=== PATIENT | female | born 1985 | race African-American/Black ===

== ENCOUNTER 2024-07-26 02:48 | Observation (INO) | payer MEDICAID, SELFPAY ==
[2024-07-26] VITALS (8 sets, daily range): BP systolic 110–189; BP diastolic 70–109; PULSE 84–101; RESP 14–18; TEMP 36.3–37.1; O2SAT 98–100; BMI 22.1
--- NOTE | 2024-07-26 | ECG_ITS ---
Test Reason : lethargic, weakness Blood Pressure : */* mmHG Vent. Rate : 91 BPM Atrial Rate : 91 BPM P-R Int : 106 ms QRS Dur : 78 ms QT Int : 400 ms P-R-T Axes : 62 61 61 degrees QTcB Int : 492 ms Sinus rhythm with short NC Prolonged QT Abnormal ECG No previous ECGs available Referred By: Generic ED Physician Electronically Signed By: BRIT DOVE MD
[2024-07-26 03:38] LABS: Basophils Percent Auto 0.7 % (0-2); Eosinophils Absolute Auto 0.1 X10*3/uL (0.0-0.4); Hematocrit 28.2 % (37.0-47.0); Hemoglobin 9.4 g/dl (12.0-16.0); Imm Gran Abs Auto 0.02 X10*3/uL (0.00-0.03); Imm Gran Pct Auto 0.3 % (0.0-0.4); Lymphocytes Absolute Auto 1.7 X10*3/uL (1.2-4.9); Lymphocytes Percent Auto 28.9 % (20-40); MANUAL DIFF FLAG NO; Mean Corpuscular HGB Conc 33.3 g/dl (31.0-35.0); Mean Corpuscular Hemoglobin 27.3 pg (27.0-33.0); Mean Platelet Volume 9.9 fL (9.4-12.3); Monocytes Absolute Auto 0.4 X10*3/uL (0.1-1.2); Monocytes Percent Auto 6.2 % (2-11); Neutrophils Absolute Auto 3.8 x10*3/uL (2.0-8.3); Neutrophils Percent Auto 62.9 % (45-73); Platelet Count 219 X10*3/uL (160-400); Red Blood Count 3.44 X10*6/uL (4.20-5.50); Red Cell Distribution Width 14.2 % (11.0-16.0)
[2024-07-26 03:39] LABS: Glucose, Whole Blood 86 mg/dL (60-115)
[2024-07-26] MEDS: Dextrose 5 % and 0.9 % NaCl 1,000 ML 125 ML IVCONT (03:48)
--- NOTE | 2024-07-26 03:53 | ED.GENADULT ---
HPI - General Adult General Chief complaint: General Medical Stated complaint: HYPOGLYCEMIC Time Seen by Provider: 07/26/24 03:37 Source: EMS Mode of arrival: EMS Limitations: other History of Present Illness ED Provider: Dr. Mi Thomas HPI narrative: Patient comes to the emergency room via ambulance from home. Earlier today, patient was having dinner with her boyfriend and family. Patient herself to go up to the bathroom, they did not hear back from her, they went to check on her. Boyfriend found the patient unresponsive in the bathroom. EMS was called, glucose was in the low 50s. EMS gave her glucagon and D10. Glucose increased to the 200s. However, shortly after here in the ED, glucose dropped again to the 80s. Patient very weak, patient answering questions saying yes or no by moving her finger Related Data Allergies Allergy/AdvReac Type Severity Reaction Status Date / Time ondansetron [From Zofran] AdvReac Hives Verified 07/26/24 03:31 Review of Systems Review of Systems: Yes Unobtainable due to mental condition [facility] Past Medical History Medical History (Updated 07/26/24 @ 05:17 by Mi Thomas MD) Type 1 diabetes mellitus Social History Social History Smoked in Last 30 Days: No Use of substances other than those prescribed or required for medical reasons: Yes Substance Use Type: Marijuana Substance Use Frequency: Socially Do you have a plan to hurt others: No Plan Physical Exam ED Vital Signs: Vital Signs - 24 hr 07/26/24 03:17 07/26/24 04:45 Temperature 98.7 F 98.7 F Pulse Rate 92 84 Respiratory Rate 16 16 Blood Pressure 189/109 H 110/70 Pulse Oximetry 98 98 Oxygen Delivery Method Room Air Room Air BMI result Body Mass Index 22.1 Const Other: Appearance: Somnolent but arousable, answering questions by moving her index finger yes or no Eyes: Pupils equal, round and reactive to light. ENT: Pharynx normal. Neck: Normal inspection. Neck supple. No lymph nodes noted. No crepitus CVS: Normal heart rate and rhythm. Pulses normal. Normal S1 and S2 Respiratory: No respiratory distress. Breath sounds normal. No Wheezing. No rales Abdomen: Soft and nontender. No rigidity. No distention. Skin: Skin warm and dry. Normal skin color. Normal skin turgor. Extremities: No lower extremity edema. No Lacerations. No Rash Neuro: Patient not participating cranial nerve assessment Psych: calm Course Course Course Narrative: EMS gave the patient D10 IV fluids and D50 push Here in the emergency room, patient received another dose of D50 push and is now on D5 normal saline. Patient removed her insulin pump Medications Administered Generic Name Dose Route Start Last Admin Trade Name Freq PRN Reason Stop Dose Admin Dextrose 1,000 mls @ 100 mls/hr 07/26/24 04:30 07/26/24 04:34 D10 IVCONT 100 mls/hr .Q10H NIKI Administration Discontinued Medications Generic Name Dose Route Start Last Admin Trade Name Freq PRN Reason Stop Dose Admin Dextrose/Sodium Chloride 1,000 mls @ 125 mls/hr 07/26/24 03:45 07/26/24 04:35 D5ns IVCONT 125 mls/hr .Q8H NIKI Infusion Medical Decision Making Medical Decision Making [facility] Narrative: My interpretation of labs: Patient's white blood cell count 6.0. Hemoglobin noted to be 9.4, hematocrit 28.2, platelets 219. We do not have any previous medical records or labs to compare No significant chemistry abnormalities other than the hypoglycemia. Initially, patient's glucose wa in the 50s per EMS, given D10 Here in the ED patient received D50, D5 continues glucose. However, patient's glucose initially improved but subsequently dropped to the 70s. Patient on D10. Patient awake, alert but somnolent, responds appropriately I discussed the patient with Dr. Segovia, patient being admitted Lab Data 07/26/24 03:31 07/26/24 03:31 Labs: Lab Results 07/26/24 07/26/24 07/26/24 Range/Units 03:31 03:35 04:14 WBC 6.0 (4.8-10.8) X10*3/uL RBC 3.44 L (4.20-5.50) X10*6/uL Hgb 9.4 L (12.0-16.0) g/dl Hct 28.2 L (37.0-47.0) % MCV 82.0 (80.0-98.0) fL MCH 27.3 (27.0-33.0) pg MCHC 33.3 (31.0-35.0) g/dl RDW 14.2 (11.0-16.0) % Plt Count 219 (160-400) X10*3/uL MPV 9.9 (9.4-12.3) fL Immature Gran % (Auto) 0.3 (0.0-0.4) % Neut % (Auto) 62.9 (45-73) % Lymph % (Auto) 28.9 (20-40) % [place] % (Auto) 6.2 (2-11) % Eos % (Auto) 1.0 (0-4) % Baso % (Auto) 0.7 (0-2) % Lymph # (Auto) 1.7 (1.2-4.9) X10*3/uL [place] # (Auto) 0.4 (0.1-1.2) X10*3/uL Eos # (Auto) 0.1 (0.0-0.4) X10*3/uL Baso # (Auto) 0.0 (0.0-0.2) X10*3/uL Abs Immat Gran (auto) 0.02 (0.00-0.03) X10*3/uL Absolute Neuts (auto) 3.8 (2.0-8.3) x10*3/uL Absolute Nucleated RBC 0.000 (0.0-0.012) X10*3/uL Nucleated RBC % (auto) 0.0 (0.0-0.2) /100WBC Sodium 143 (135-145) mmol/L Potassium 3.8 (3.3-5.1) mmol/L Chloride 110 H (96-108) mmol/L Carbon Dioxide 26 (22-29) mmol/L Anion Gap 11 L (12-20) BUN 23 H (9-16) mg/dL Creatinine 0.99 (0.5-1.4) mg/dL Estim Creat Clear Calc 63.1 Estimated GFR > 60 POC Glucose 86 62 (60-115) mg/dL Random Glucose 60 (60-115) mg/dL Calcium 9.4 (8.4-10.2) mg/dL Total Bilirubin 0.2 (0.0-1.0) mg/dL AST 49 H (5-31) U/L ALT 50 H (0-31) U/L Alkaline Phosphatase 84 (39-117) U/L Total Protein 7.4 (6.5-8.0) g/dL Albumin 3.7 (3.5-5.0) g/dL Ethyl Alcohol < 10 mg/dL 07/26/24 Range/Units 04:44 WBC (4.8-10.8) X10*3/uL RBC (4.20-5.50) X10*6/uL Hgb (12.0-16.0) g/dl Hct (37.0-47.0) % MCV (80.0-98.0) fL MCH (27.0-33.0) pg MCHC (31.0-35.0) g/dl RDW (11.0-16.0) % Plt Count (160-400) X10*3/uL MPV (9.4-12.3) fL Immature Gran % (Auto) (0.0-0.4) % Neut % (Auto) (45-73) % Lymph % (Auto) (20-40) % [place] % (Auto) (2-11) % Eos % (Auto) (0-4) % Baso % (Auto) (0-2) % Lymph # (Auto) (1.2-4.9) X10*3/uL [place] # (Auto) (0.1-1.2) X10*3/uL Eos # (Auto) (0.0-0.4) X10*3/uL Baso # (Auto) (0.0-0.2) X10*3/uL Abs Immat Gran (auto) (0.00-0.03) X10*3/uL Absolute Neuts (auto) (2.0-8.3) x10*3/uL Absolute Nucleated RBC (0.0-0.012) X10*3/uL Nucleated RBC % (auto) (0.0-0.2) /100WBC Sodium (135-145) mmol/L Potassium (3.3-5.1) mmol/L Chloride (96-108) mmol/L Carbon Dioxide (22-29) mmol/L Anion Gap (12-20) BUN (9-16) mg/dL Creatinine (0.5-1.4) mg/dL Estim Creat Clear Calc Estimated GFR POC Glucose 75 (60-115) mg/dL Random Glucose (60-115) mg/dL Calcium (8.4-10.2) mg/dL Total Bilirubin (0.0-1.0) mg/dL AST (5-31) U/L ALT (0-31) U/L Alkaline Phosphatase (39-117) U/L Total Protein (6.5-8.0) g/dL Albumin (3.5-5.0) g/dL Ethyl Alcohol mg/dL Critical Care Time Critical Care Time Critical Care Time: Yes Total Critical Care Time: 60 Attestation: I have personally provided critical care time. Time includes review of lab data, radiology results, discussion with consultants, and monitoring for potential decompensation. Intervention performed as documented. Discharge Plan Discharge Clinical Impression: Hypoglycemia Patient Disposition: Admitted As Inpatient
[2024-07-26 04:00] LABS: Alanine Aminotransferase 50 U/L (0-31); Albumin Level 3.7 g/dL (3.5-5.0); Alkaline Phosphatase 84 U/L (39-117); Anion Gap 11 (12-20); Aspartate Amino Transferase 49 U/L (5-31); Bilirubin Total 0.2 mg/dL (0.0-1.0); Blood Urea Nitrogen 23 mg/dL (9-16); Calcium 9.4 mg/dL (8.4-10.2); Carbon Dioxide 26 mmol/L (22-29); Chloride 110 mmol/L (96-108); Creatinine Clr Calc Pharmacy 63.1; Estimated Glomerular Filt Rate > 60; Ethanol < 10 mg/dL; Glucose Random 60 mg/dL (60-115); Potassium 3.8 mmol/L (3.3-5.1); Sodium 143 mmol/L (135-145); Total Protein 7.4 g/dL (6.5-8.0)
[2024-07-26 04:17] LABS: Glucose, Whole Blood 62 mg/dL (60-115)
--- NOTE | 2024-07-26 04:23 | PC.NURSE ---
Confirmed with , order for D10 continuous IV infusion 100ml/hr. Pharmacy assisting to put the order in.
[2024-07-26] MEDS: Dextrose 10 % 1,000 ML 100 ML IVCONT (04:34)
--- NOTE | 2024-07-26 04:36 | PC.NURSE ---
Addendum entered by Radha Shine 07/26/24 04:38: poc was 62 Original Note: poc [address] meraz new orders place for d10. pt is a&o at this time and answer question appropriately
--- NOTE | 2024-07-26 04:46 | PC.NURSE ---
pt is a&o, reports feeling much better, warm blanket given.
[2024-07-26 04:47] LABS: Glucose, Whole Blood 75 mg/dL (60-115)
--- OUTSIDE RECORDS SUMMARY | 2024-07-26 05:44 | XMS_ITS | Encounter Summary ---
Author Organization [employer]: [facility] Address [facility] [phone] [place] [address] Care Team Providers Care Power Press Supervisor Name Role Phone Celsa Preston MD Primary Care Provider [phone] Encounter Details Date Type Department Care Team (Latest Contact Info) Description 07/05/2024 Travel Social History Tobacco Use Types Packs/Day Years Used Date Smoking Tobacco: Never Cigarettes Qu it: 10/29/2009 Smokeless Tobacco: Never Comments:only smoked passive ly for a couple months Alcohol Use Standard Drinks/Week Comments No 0 (1 standard drink = 0.6 oz pur e alcohol) rarely Home Health - Social Isolation Answer D ate Recorded Frequency of experiencing loneliness or isolatio n Never 07/03/2023 Home Health - Transportation Answer Omar e Recorded Lack of Transportation (Medical) No 07/03/2023 Lack of Transportation (Non-Medical) No 07/03/2023 Patient Unable or Declines to Respond No 07/03/2023 [facility] Utilities Answer Date Recorded In the past 12 months has th [employer] electric, gas, oil, or water company threatened to shut off services in your home? No 06/26/2024 Social Connection and Isolat ion Panel [NHANES] Answer Date Recorded In a typical week, how many times do you talk on the phone with family, friends, or neighbors? More than three times a week 06/26/2024 How often do you get togethe r with friends or relatives? Twice a week 06/26/2024 How often do you attend chur ch or gnosticist services? Never 06/26/2024 Do you belong to any clubs o r organizations such as buddhism groups, unions, fraternal or athletic groups, or school groups? No 06/26/2024 How often do you attend meet ings of the clubs or organizations you belong to? Never 06/26/2024 Are you , , di vorced, , never , or living with a partner? Living with partner 06/26/2024 AUDIT-C Answer Date Recorded Q1: How often do you have a drink containing alcohol? Never 07/05/2024 Q2: How many drinks containi ng alcohol do you have on a typical day when you are drinking? Patient does not drink Q3: How often do you have si x or more drinks on one occasion? Never 07/05/2024 Overall Financial Resource Strain (CARDIA) Answe r Date Recorded How hard is it for you to pa y for the very basics like food, housing, medical care, and heating? Hard 04/24/2023 Hunger Vital Sign Answer Date Recorded Within the past 12 months, y ou worried that your food would run out before you got the money to buy more. Never true 06/26/20 Within the past 12 months, t he food you bought just didn't last and you didn't have money to get more. Never true 06/26/2024 PRAPARE - Transportation Answer Date Re corded In the past 12 months, has l ack of transportation kept you from medical appointments or from getting medications? No 06/01 In the past 12 months, has l ack of transportation kept you from meetings, work, or from getting things needed for daily living? No 06/26/2024 Housing Stability Vital Sign Answer Omar e Recorded In the last 12 months, was t here a time when you were not able to pay the mortgage or rent on time? Patient declined 03/05/20 In the last 12 months, how many places have you lived? 1 03/05/2024 In the last 12 months, was t here a time when you did not have a steady place to sleep or slept in a [facility] (including now)? Patient declined 03/05/2024 Housing Stability Vital Sign Answer Omar e Recorded In the last 12 months, was t here a time when you were not able to pay the mortgage or rent on time? No 06/26/2024 In the past 12 months, how m any times have you moved where you were living? 0 06/26/2024 At any time in the past 12 m [facility], were you homeless or living in a [facility] (including now)? No 06/26/2024 Sex and Gender Information Value Date Recorded Sex Assigned at Female 12/25/2023 2:20 PM EDT Gender Identity Female 12/25/2023 2:20 PM EDT Sexual Orientation Bisexual 12/25/2023 2: 20 PM EDT documented as of this encounter Functional Status Functional Status Response Date of Assess ment Is this person deaf or does he/she have serious difficulty hearing? No 06/26/2024 Is this person blind or does he/she have serious difficulty seeing even when wearing glasses? No Does this person have seriou s difficulty walking or climbing stairs? No 06/26/2024 Does this person have seriou s difficulty dressing or bathing? No 06/26/2024 Because of a physical, menta l, or emotional condition, does this person have difficulty doing errands alone, such as visiting the doctor's office or shopping? No 06/01 Cognitive Status Response Date of Assessm ent Because of a physical, menta l, or emotional condition, does this person have difficulty concentrating, remembering, or making decisions? No 06/26/2024 documented as of this encounter Plan of Treatment Not on file documented as of this encounter Visit Diagnoses Not on filedocumented in this encounter Additional Health Concerns Infection Onset Date Last Indicated Resolved Time Influenza Rule-Out 07/05/2024 07/05/2024 8:09 AM EST RSV Rule-Out 07/05/2024 07/05/2024 07/05/2024 8:09 AM EST COVID-19 Rule-Out 07/05/2024 07/05/2024 07/05/2024 8:09 AM EST documented as of this encounter Care Teams Power Press Supervisor Relationship Specialty Start Date End Date Celsa Preston MD [address] [place] [address] PCP - General Internal Medicine 12/10/17 documented as of this encounter
--- OUTSIDE RECORDS SUMMARY | 2024-07-26 05:44 | XMS_ITS | Encounter Summary ---
Author Organization [facility]: [facility] Address [facility] [phone] [place] [address] Care Team Providers Care Food Counter Worker Name Role Phone Celsa Preston MD Primary Care Provider [phone] Reason for Visit * Reason Comments Hypoglycemia Encounter Details Date Type Department Care Team (Late st Contact Info) Description 06/25/2024 12:45 PM EST - 06/26/2024 5:59 PM EST Emergency [place] [address] [place] [address] Jimbo Liang MD [address] C/[place] [address] Chivo Curtis MD [address] [place] [id number] Hypoglycemia (Primary Dx) Discharge Disposition: Routine Discharge Home Social History Tobacco Use Types Packs/Day Years [...] Unable or Declines to Respond No 07/03/[address] [facility] Utilities Answer Date Recorded In the past 12 months has th e electric, gas, oil, or water company threatened [...] often do you attend chur ch or amish services? Never 06/26/2024 Do you belong to any clubs o r organizations such as yazdanism groups, unions, fraternal or athletic groups, or school groups? No 06/26/2024 How often do you attend meet ings of the clubs or organizations you belong to? Never 06/26/2024 Are you , , di vorced, , never , or living with a partner? Living with partner 06/26/2024 AUDIT-C Answer Date Recorded Q1: How often do you have a drink containing alcohol? Never 06/25/2024 Q2: How many drinks containi ng alcohol do you have on a typical day when you are drinking? Patient does not drink Q3: How often do you have si x or more drinks on one occasion? Never 06/25/2024 Overall Financial Resource Strain (CARDIA) Answe r Date Recorded How hard is it for you to pa y for the very basics like food, housing, medical care, and heating? Hard 04/24/2023 Hunger Vital Sign Answer Date Recorded Within the past 12 months, y ou worried that your food would run out before you got the money to buy more. Never true 06/26/20 24 Within the past 12 months, t he [...] or rent on time? Patient declined 03/05/20 24 In the last 12 months, how many places have you lived? 1 03/05/2024 In the last 12 months, was t here a time when you did not have a steady place to sleep or slept in a long term (including now)? Patient declined 03/05/2024 Housing Stability [...] any time in the past 12 m [facility], were you homeless or living in a long term (including now)? No 06/26/2024 Sex and Gender Information Value Date Recorded Sex Assigned at Female 12/25/2023 2:20 PM EDT Gender Identity Female 12/25/2023 2:20 PM EDT Sexual Orientation Bisexual 12/25/2023 2: 20 PM EDT documented as of this encounter Last Filed Vital Signs Vital Sign Reading Time Taken Comments Blood Pressure 113/99 06/26/2024 3:46 PM EST Pulse 103 06/26/2024 3:46 PM EST Temperature 36.9 ??C (98.5 ??F) 06/26/2024 3:46 PM ES T Respiratory Rate 16 06/26/2024 3:46 PM EST Oxygen Saturation 98% 06/26/2024 3:46 PM EST Inhaled Oxygen Concentration - - Weight 58.1 kg (128 lb) 06/25/2024 10:17 PM EST Height 160 cm (5' 2.99 ) 06/25/2024 10:17 PM EST Body Mass Index 22.68 06/25/2024 10:17 PM EST documented in this encounter Functional Status Functional Status Response [...] No 06/26/2024 documented as of this encounter Discharge Summaries * MIGUELITO Patel - 06/26/2024 4:40 PM EST DISCHARGE SUMMARY NAME: Lynne Brown AGE: [age] year old : 1985 [facility]09 [place]: [id number] ADMITTING PROVIDER: Chivo Curtis MD ADMIT DATE: 06/25/2024 PCP: CELSA PRESTON DISCHARGE DATE: 06/26/2024 DISCHARGING PROVIDER: MIGUELITO Patel Code Status: Full Code FINAL DIAGNOSIS: 1. Hypoglycemic episode 2. Right upper lobe pneumonia seen on chest x-ray 3. Abnormal urinalysis 4. Electrolyte derangements SECONDARY DIAGNOSIS: Principal Problem: Hypoglycemia (POA: Yes) Resolved Problems: * No resolved hospital problems. * BRIEF HOSPITAL COURSE: This is a 39-year-old female with past medical history of T1DM with prior hospitalizations for DKA,HTN, admitted on 06/25/2024 following an unresponsive episode found to have significant hypoglycemia with glucose under 20. The patient received 250 cc of D10 x 2 with improvement of her glucose. Please see the full H&P by Dr. Curtis for further details. Per the patient, the night prior to her hypoglycemic event, was Lilian Katia and she did not eat anything all day followed by a very large meal and soda around 11 PM that evening. She gave herself insulin via her pump as if she ate a normal meal and then went to bed. The cement finishing supervisor was consulted and evaluated her insulin pump. It appears that her glucose didspike overnight and the pump algorithm gave her multiple boluses to bring her glucose down while she was sleeping. Around 9 AM, she awoke to her Dexcom monitor alarming that her glucose was low. Unfortunately, with the patient's specific pump, there is no way to customize algorithm and it was felt it was unsafe to replace the patient's insulin pump at this time. The patient just recently started this insulin pump in January, and would like to resume her prior insulin regimen as follows: Lantus 16 units nightly, NovoLog FlexPen 5 units with meals and correction factor of 50, target 150 at home.The patient states she has plenty of insulin, pen needles, and Dexcom G7 sensors at home. The patient denies SI with no intention to cause harm to herself. Please see the cement finishing supervisor's full note for details. Additionally, chest x-ray on admission with a right upper lobe consolidation suggestive of pneumonia. The patient has remained afebrile without leukocytosis or any respiratory symptoms. The patient started on oral Augmentin which will be continued for total of 5 days of antibiotic therapy. Legionella and strep pneumonia antigens were negative. Respiratory bio fire panel was negative. Her UA was negative for nitrates, 500 leukocytes, over 182 WBC, 105 RBC, and 27 squamous epithelial cells. The patient denies acute urinary symptoms and states she is on her menses which explains the RBCs in her urine. Will continue on Augmentin for right upper lobe pneumonia which should cover urinary tract inf ection as well. I sent a staff message to the hospitalist RN who will follow her urine culture and notify the patient if her antibiotic needs to be adjusted. Lastly, the patient had electrolyte abnormalities with mild hypokalemia, low normal magnesium level, and hypophosphatemia. Her electrolytes were repleted orally and intravenously. She will continue on Neutra-Phos x 3 doses on discharge. I recommend close follow-up with repeat labs on Saturday, 06/29 for her PCP's review. Her blood pressure was elevated at times. She is continued on her home antihypertensives. On discharge, I recommend monitoring blood pressure and heart rate twice daily. I instructed the patient to call her theatrical rigger as soon as possible for further recommendations for her diabetes management. Follow-up with endocrinology within 1 to 2 weeks and PCP within 7 to 10 days. Disposition: Routine Discharge Home CONSULTS: Consults Ordered during this Encounter Procedures Inpatient Diabetes Education Consult PROCEDURES:No orders of the defined types were placed in this encounter. RADIOLOGY TESTS: CXR (Portable) Final Result Right upper lobe consolidation concerning for pneumonia. Electronically signed by: Kolby Tobar MD 06/25/2024 7:39 PM PROPOSED MANAGEMENT PLAN: Risk for readmission within 30 days: Low Pending results: Unresulted Labs . . . Urine Culture [[id number]] Collected: 06/26/24 1409 Updated: 06/26/24 1413 Specimen Source: Urine, Clean Catch Recommended Testing: Refer to Hospital Course DISCHARGE MEDICATIONS: Medication List STOP taking these medications insulin infusion pump Macy TAKE these medications Dose Ordering Provider Morning Afternoon Evening Bedtime acetaminophen 500 MG Tabs Commonly known as: TYLENOL Instructions: Take 1 Tablet (500 mg total) by mouth every 6 hours as needed for Pain, Fever or Discomfort. Dose: 500 mg Signed by: MIGUELITO Castro amitriptyline 25 MG Tabs Commonly known as: ELAVIL Instructions: Take 25 mg by mouth at bedtime. Dose: 25 mg amoxicillin-clavulanate 875-125 MG Tabs Commonly known as: AUGMENTIN Instructions: Take 1 Tablet by mouth every 12 hours for 8 doses. Take with food Dose: 1 Tablet Signed by: MIGUELITO Castro aspirin 81 MG Chew Instructions: Chew 1 Tablet (81 mg total) daily. Dose: 81 mg Signed by: Kali Rueda atorvastatin 40 MG Tabs Commonly known as: LIPITOR Instructions: Take 1 Tablet (40 mg total) by mouth at bedtime. Dose: 40 mg Signed by: Kali Rueda ferrous sulfate 325 (65 Fe) MG Tabs Commonly known as: IRON Instructions: Take 1 Tablet (325 mg total) by mouth every 48 hours. What changed: when to take this Dose: 325 mg Signed by: MIGUELITO Castro LANTUS SOLOSTAR 100 UNIT/ML Sopn Commonly known as: insulin glargine Instructions: Inject 16 Units subcutaneously at bedtime. Dose: 16 Units Signed by: MIGUELITO Castro lisinopril 20 MG Tabs Commonly known as: PRINIVIL Instructions: Take 1 Tablet (20 mg total) by mouth once daily every morning. Dose: 20 mg Signed by: Kali Rueda metoprolol succinate 100 MG Tb24 Commonly known as: TOPROL XL Instructions: Take 1 Tablet (100 mg total) by mouth daily. Do not crush or chew What changed: when to take this Dose: 100 mg Signed by: Wisam DAVISLOG FLEXPEN 100 UNIT/ML Sopn Commonly known as: Insulin Aspart Instructions: Inject 5 Units subcutaneously as directed. Novolog Flexpens 5 units with meals and correction factor 50, target 150 as your were on previously What changed: Another medication with the same name was removed. Continue taking this medication, and follow the directions you see here. Dose: 5 Units Signed by: MIGUELITO Castro potassium & sodium phosphates 280-160-250 MG Pack Commonly known as: NEUTRA-PHOS Instructions: Take 1 Packet by mouth 4 times a day for 3 doses. Dose: 1 Packet Signed by: MIGUELITO Castro RELION LANCETS MICRO-THIN 33G Misc Instructions: 1 Lancet 4 times a day before meals and at bedtime. Dose: 1 Lancet Signed by: Nigel Lin DO RELION PREMIER CLASSIC Macy Instructions: 1 Kit once for 1 dose. Dose: 1 Kit Signed by: Nigel Lin DO Where to Get Your Medications These medications were sent to [id number] [place], [place] - [address] [id number] Hours: 24-hours amoxicillin-clavulanate 875-125 MG Tabs potassium & sodium phosphates 280-160-250 MG Pack Information about where to get these medications is not yet available Ask your nurse or doctor about these medications acetaminophen 500 MG Tabs ferrous sulfate 325 (65 Fe) MG Tabs High-risk Medication Changes: Refer to Hospital Course ELEMENT SETTER Medication Changes: Refer to Hospital Course FOLLOW UP: CELSA PRESTON MD. Schedule an appointment as soon as possible for a visit in 1 day(s). Specialties: Internal Medicine, Hospitalist Why: Follow-up with your PCP within 7 days. Contact information [address] [facility] [id number] RAFA RUSSELL MD. Schedule an appointment as soon as possible for a visit in 1 day(s). Specialties: Endocrinology, Internal Medicine Why: Please call your theatrical rigger for further insulin recommendations. You should follow-up with your theatrical rigger within 1 to 2 weeks. Contact information [facility] [id number] CONDITION ON DISCHARGE: General Appearance: Well appearing, resting in bed, alert, conversant, NAD ENT Exam: Anicteric sclera, MMM Head: Atraumatic, normocephalic Chest Exam: Speaking in full sentences comfortably on room air. Lungs CTABL without wheezes, rales,rhonchi. Good air movement bilaterally. Normal rate, regular rhythm, S1 and S2, no murmurs Abdominal Exam: Abdomen nondistended, + bowel sounds, soft, nontender, no palpable masses or organomegaly, no suprapubic or CVA tenderness Exam of Extremities: No pedal edema or calf tenderness/erythema bilaterally Neurological Exam: Alert, answers questions appropriately, speech is clear and not dysarthric, no facial asymmetry, PERRL, EOMI, moves all extremities well Skin Exam: Warm, dry. No rashes noted to exposed skin Psych Exam: Calm, cooperative ALLERGIES: Review of patient's allergies indicates: Ondansetron Hcl Rash, Itching IMMUNIZATIONS: Immunization History Administered Date(s) Administered DTP [birth year], 09/01/1987 MMR 09/01/1987 Polio - OPV 1985, 1985, 09/01/1987, 02/28/1989 Rhogam 09/14/2016 Tb Intradermal 05/05/2001 Tdap 07/15/2015 DISCHARGE ORDERS: Discharge Orders Procedures 1800 calorie, consistent carbohydrate diet Activity as tolerated, No restrictions Call MD for: temperature > 100.4 Call MD for: persistent nausea and vomiting Call MD for: severe, uncontrolled pain Call MD for: difficulty breathing, headache or visual disturbances Call MD for: persistent dizziness or light-headedness Future Lab/Radiology Orders Future Labs/Procedures 06/29/2024 Complete Blood Count with Auto Differential 06/29/2024 Comprehensive Metabolic Panel 06/29/2024 Magnesium 06/29/2024 Phosphorus TOTAL TIME SPENT ORCHESTRATING DISCHARGE: Time spent preparing discharge: 60 minutes, Including including face to face , review of patient record, and coordination of care. Rhianna Sharp PAC Associated attestation - Jimbo Liang MD - 06/26/2024 5:14 PM EST Patient seen and examined with associate provider. Agree with history, exam and assessment/plan. I discussed the patient with the ACP and performed a substantive portion of the visit. I personally made/approved the management plan, including all aspects of the history, physical exam and medical decision making, taking responsibility for the management. 39-year-old female with past medical history of type 1 diabetes mellitus currently utilizing an Islet pump coming with hypoglycemia. We discussed the case extensively with her prover todaywho looked at the actual pump administrations of insulin. Seems that with the pump was administering too much insulin overnight. We discussed these findings with the patient and we elected to pursue injectable insulin at this time and allow her to follow-up with endocrine to further discuss the useof this pump given this worrisome outcome. documented in this encounter Discharge Instructions * Discharge Instructions* Rhianna Sharp, PAC - 06/26/2024 4:37 PM EST You presented to the hospital with hypoglycemia felt to be secondary to possible insulin pump failure versus over correcting for your sugars. You are seen by the cement finishing supervisor. On discharge, resume your previous Lantus 16 units nightly with NovoLog 5 units before meals with correction factor of50, target 150. I recommend you call your theatrical rigger as soon as possible for further recommendations on your diabetic regimen and follow-up with your theatrical rigger within 1 to 2 weeks. Additionally, you are found to have right upper lobe pneumonia on your chest x-ray. You were started on Augmentin which should be continued on discharge. Your UA was abnormal and your urine culture is pending. We will contact you if your antibiotic needs to be adjusted once your culture has resulted. Lastly, you had electrolyte abnormalities which were replaced. Repeat labs with CBC, CMP, magnesium level, and phosphorus on Saturday for your PCPs review. Blood pressures were elevated at times. Monitor your blood pressure and heart rate twice daily, recording results for your PCPs review. I recommend theOmron arm blood pressure cuff which can be purchased [id number]. Follow-up with your theatrical rigger within 1 to 2 weeks new PCP within 7 to 10 days. * Attachments The following attachments cannot be sent through Care Everywhere. * Hypoglycemia in Diabetes: General Info (Grenadian) * Diabetes: Blood Sugar Emergencies (Grenadian) * Antibiotics: General Info (Grenadian) * Pneumonia (Grenadian) documented in this encounter Medications at Time of Discharge Medication Sig Dispensed Refills Start Date End Date amitriptyline (ELAVIL) 25 MG Oral Tab Take 25 mg by mouth at bedtime. aspirin 81 MG Oral Chew Tab Chew 1 Tablet (81 mg total) daily. 30 Tablet 1 01/26/2024 08/08/2024 atorvastatin (LIPITOR) 40 MG Oral Tab Take 1 Tablet (40 mg total) by mouth at bedtime. 30 Tablet 1 01/25/2024 08/08/2024 ferrous sulfate (IRON) 325 (65 Fe) MG Oral Tab Take 1 Tablet (325 mg total) by mouth every 48 hours. 06/26/2024 Insulin Aspart (NOVOLOG FLEXPEN) 100 UNIT/ML Subcutaneous Solution Pen-injector Inject 5 Units subcutaneously as directed. Novolog Flexpens 5 units with meals and correction factor 50, target 150 as your were on previously 06/26/2024 insulin glargine (LANTUS SOLOSTAR) 100 UNIT/ML Subcutaneous Solution Pen-injector Inject 16 Units subcutaneously at bedtime. 06/26/2024 lisinopril (PRINIVIL) 20 MG Oral Tab Take 1 Tablet (20 mg total) by mouth once daily every morning. 30 Tablet 1 01/26/2024 08/08/2024 metoprolol succinate (TOPROL XL) 100 MG Oral TABLET SR 24 HR Take 1 Tablet (100 mg total) by mouth daily. Do not crush or chew 03/07/2024 08/08/2024 acetaminophen (TYLENOL) 500 MG Oral Tab Take 1 Tablet (500 mg total) by mouth every 6 hours as needed for Pain, Fever or Discomfort. 06/26/2024 07/03/2024 amoxicillin-clavulana te (AUGMENTIN) 875-125 MG Oral Tab Take 1 Tablet by mouth every 12 hours for 8 doses. Take with food 8 Tablet 06/26/2024 06/30/2024 potassium & sodium phosphates (NEUTRA-PHOS) 280-160-250 MG Oral Pack Take 1 Packet by mouth 4 times a day for 3 doses. 3 Packet 06/26/2024 06/27/2024 documented as of this encounter Progress Notes * Bart Prieto MD - 06/25/2024 5:39 PM EST Contacted by Dr. Sapp, hospitalist concern of frequency for finger sticks on D5NS with previous hypoglycemia, d/w charge, floors should be able to manage. * He Sapp MD - 06/25/2024 2:58 PM EST 39 year old female with PMH of gastroparesis, type 1 diabetes presenting with chief complaint of hypoglycemia x 1 day. History obtained from patient at bedside. She says that over the last several days to a week she has had some loose brown diarrhea. In this context she has been nauseous with some decreased p.o. intake. She says that she noted earlier today she began to feel fatigued and generally unwell. At some point her CGM alerted her that her blood glucose was low. She states that she called EMS and the next thing she remembers is being surrounded by shot polisher and inspector. Per EMS, patient had a blood glucose reading of low or less than 20. Her insulin pump was paused and she received 250 cc of D10 with improvement in her blood glucose to 148. She had had a 1 episode of emesis this was treated with Reglan and on ED arrival confirmed that herinsulin pump was paused. At that time her blood glucose was rechecked and was 53. The remaining 250cc of D10 were infused. denies fevers, chills, chest pain, shortness of breath, abdominal pain, dysuria, urinary frequency or urgency REVIEW OF SYSTEMS Negative unless otherwise specified in HPI PAST MEDICAL HISTORY Past Medical History: Diagnosis Date CYST 01/2010 on wrist Depression Diabetes mellitus Gastroparesis Other and unspecified anemias Sickle-cell disease, unspecified (CMS/HCC) TRAIT only Unspecified mental or behavioral problem MEDICATIONS No current facility-administered medications for this encounter. Current Outpatient Medications: amitriptyline (ELAVIL) 25 MG Oral Tab, Take 25 mg by mouth at bedtime., Disp: , Rfl: aspirin 81 MG Oral Chew Tab, Chew 1 Tablet (81 mg total) daily., Disp: 30 Tablet, Rfl: 1 atorvastatin (LIPITOR) 40 MG Oral Tab, Take 1 Tablet (40 mg total) by mouth at bedtime., Disp: 30 Tablet, Rfl: 1 Blood Glucose Monitoring Suppl (RELION PREMIER CLASSIC) Does not apply Device, 1 Kit once for 1 dose., Disp: 1 Each, Rfl: 0 ferrous sulfate (IRON) 325 (65 Fe) MG Oral Tab, Take 325 mg by mouth daily., Disp: , Rfl: insulin infusion pump, Inject 0-10 Units subcutaneously daily. Document 24-hour insulin total (Total Daily Dose) Type of insulin being used in the pump: Novolog Insulin Basal rate ? units/hour Correction factor ? units of insulin to decrease blood glucose by ? mg/dL Insulin / Carb ratio ?/? units/grams, Disp: , Rfl: lisinopril (PRINIVIL) 20 MG Oral Tab, Take 1 Tablet (20 mg total) by mouth once daily every morning., Disp: 30 Tablet, Rfl: 1 metoprolol succinate (TOPROL XL) 100 MG Oral TABLET SR 24 HR, Take 1 Tablet (100 mg total) by mouthdaily. Do not crush or chew, Disp: , Rfl: RELION LANCETS MICRO-THIN 33G Does not apply Misc, 1 Lancet 4 times a day before meals and at bedtime., Disp: 100 Each, Rfl: 0 PAST SURGICAL HISTORY Past Surgical History: Procedure Laterality Date DELIVERY ONLY, WITH CARE EXCIS PRIMARY GANGLION WRIST [phone] Dr Sood ORAL SURGERY PROCEDURE MTE ALLERGIES Review of patient's allergies indicates: Ondansetron Hcl Rash PAST FAMILY HISTORY Family History Problem Relation Age of Onset Hypertension Father SOCIAL HISTORY Social History Socioeconomic History Marital status: Significant other Spouse name: Karson Number of children: 4 Tobacco Use Smoking status: Never Smokeless tobacco: Never Tobacco comments: only smoked passively for a couple months Substance and Sexual Activity Alcohol use: No Comment: rarely Drug use: Yes Types: Marijuana Sexual activity: Yes Partners: Male Social Determinants of Health Financial Resource Strain: High Risk (04/24/2023) Overall Financial Resource Strain (CARDIA) Difficulty of Paying Living Expenses: Hard Food Insecurity: Patient Declined (03/05/2024) Hunger Vital Sign Worried About Running Out of Food in the Last Year: Patient declined Ran Out of Food in the Last Year: Patient declined Transportation Needs: Patient Declined (03/05/2024) PRAPARE - Transportation Lack of Transportation (Medical): Patient declined Lack of Transportation (Non-Medical): Patient declined Social Connections: Unknown (03/05/2024) Social Connection and Isolation Panel [NHANES] Marital Status: Never Intimate Partner Violence: Unknown (03/05/2024) Humiliation, Afraid, Rape, and Kick questionnaire Fear of Current or Ex-Partner: Patient declined Emotionally Abused: No Physically Abused: No Sexually Abused: No Housing Stability: Patient Declined (03/05/2024) Housing Stability Vital Sign Unable to Pay for Housing in the Last Year: Patient declined Number of Places Lived in the Last Year: 1 Unstable Housing in the Last Year: Patient declined PERTINENT PE FINDINGS Temp: [97.4 ??F (36.3 ??C)] 97.4 ??F (36.3 ??C) HR: [85-94] 86 RR: [10-29] 25 BP: (159-174)/(112-118) 166/118 SpO2: [99 %-100 %] 99 % Constitutional: No apparent distress. Mentating appropriately HEENT: Mucous membranes moist Cardiovascular: S1/S2, no m/r/g Pulmonary: Lungs clear to auscultation bilaterally. No distress GI: soft, nontender, nondistended Skin: warm, well perfused MSK: generally normal range of motion, no obvious deformities Neurologic: Awake, alert, oriented x3 Moving all extremities equally and spontaneously Psychiatric: normal affect and range of emotion [facility] [id number] - EKG per my interpretation: Normal sinus rhythm with poor R wave progression 39 year old female with PMH as above presenting with recurrent hypoglycemia. Patient is well appearing with stable vital signs. #Hypoglycemia This patient presents with multiple episodes of hypoglycemia despite having her insulin pump pausedand then subsequently completely removed. She did require want to a total of 3 rounds of D10 then transitioning to D5 maintenance IV fluids to maintain her blood glucose. The etiology of her hypoglycemia is unclear as she is able to tolerate p.o. here. There certainly may be a component of some decreased p.o. intake with her recent diarrhea. Plan for single set of blood cultures, urine studies, and from an infectious workup with chest x-ray. If patient is able to have diarrhea here, will plan for stool studies. Will also plan for basic labs and viral testing as well. Updates on clinical course: Labs overall notable for stable anemia with hemoglobin 9.7, similar to baseline 8-10 in the past. Viral testing negative. UA significantly contaminated with multiple epithelial cells and thus otherwise prohibits interpretation. During ED stay patient became increasingly hyperglycemic into the 200s. At this point D5 NS was stopped and a liter of fluids was administered. Despite this her glucose peaked in the low 300s. Sliding scale insulin was ordered and patient is being maintained on every 1 hour fingersticks until her sugars normalized. Nonetheless, given her recurrent episodes of hypoglycemia I do believe she would benefit from admission for close monitoring Chest x-ray notable for right upper lobe pneumonia. Initiated on ceftriaxone and azithromycin I discussed with hospitalist team who are amenable for admission. Given potential concern for the frequency of her fingersticks, I discussed with fisherman helper Dr. Prieto who deferred admission to hospital team. I did make oncoming ED attending aware of this patient as hospitalist team as hospitalist team has not yet fully assumed care for this patient. Final diagnosis: Hypoglycemia documented in this encounter H&P Notes * Chivo Curtis MD - 06/25/2024 8:33 PM EST HISTORY & PHYSICAL NAME: Lynne Brown : 1985 AGE: [age] year old MANSOOR: [id number] ROOM: [place] [id number] ADMIT DATE: 06/25/2024 ADMITTING PROVIDER: Chivo Curtis MD Primary care physician: CELSA PRESTON CHIEF COMPLAINT: Hypoglycemia HISTORY OF PRESENT ILLNESS: This is a 39 year old female with Pmhx of T1DM, HTN who presents with episode of hypoglycemia at home where she was unresponsive causing her children to call EMS. When they arrived her BG reading was low <20. Currently, pt denies dizziness, n/v/d, abd pain. Pt states she did not eat or drink anything today and was sleeping most of the morning, while her insulin pump was on. The next thing she remembered was EMS in her bedroom. She states she was eating and drinking well yday. She states she had an episode of hypoglycemia in the past, but none this low. Insulin pump is currently turned off. REVIEW OF SYSTEMS: Negative except As above All other systems reviewed and are negative. PAST MEDICAL HISTORY: Diagnosis Date CYST 01/2010 on wrist Depression Diabetes mellitus Gastroparesis Other and unspecified anemias Sickle-cell disease, unspecified ([facility]) TRAIT only Unspecified mental or behavioral problem PAST SURGICAL HISTORY: Past Surgical History: Procedure Laterality Date DELIVERY ONLY, WITH CARE EXCIS PRIMARY GANGLION WRIST [phone] Dr Sood ORAL SURGERY PROCEDURE MTE SOCIAL HISTORY: Social History Socioeconomic History Marital status: Significant other Spouse name: Karson Number of children: 4 Tobacco Use Smoking status: Never Smokeless tobacco: Never Tobacco comments: only smoked passively for a couple months Substance and Sexual Activity Alcohol use: No Comment: rarely Drug use: Yes Types: Marijuana Sexual activity: Yes Partners: Male Social Determinants of Health Financial Resource Strain: High Risk (04/24/2023) Overall Financial Resource Strain (CARDIA) Difficulty of Paying Living Expenses: Hard Food Insecurity: Patient Declined (03/05/2024) Hunger Vital Sign Worried About Running Out of Food in the Last Year: Patient declined Ran Out of Food in the Last Year: Patient declined Transportation Needs: Patient Declined (03/05/2024) PRAPARE - Transportation Lack of Transportation (Medical): Patient declined Lack of Transportation (Non-Medical): Patient declined Social Connections: Unknown (03/05/2024) Social Connection and Isolation Panel [NHANES] Marital Status: Never Intimate Partner Violence: Unknown (03/05/2024) Humiliation, Afraid, Rape, and Kick questionnaire Fear of Current or Ex-Partner: Patient declined Emotionally Abused: No Physically Abused: No Sexually Abused: No Housing Stability: Patient Declined (03/05/2024) Housing Stability Vital Sign Unable to Pay for Housing in the Last Year: Patient declined Number of Places Lived in the Last Year: 1 Unstable Housing in the Last Year: Patient declined FAMILY HISTORY: Reviewed and negative for any diseases related to today's diagnosis Problem Relation Age of Onset Hypertension Father ALLERGIES: Review of patient's allergies indicates: Ondansetron Hcl Rash, Itching MEDICATIONS: Prior to Admission Medications Prescriptions Last Dose Informant Patient Reported? Taking? Blood Glucose Monitoring Suppl (RELION PREMIER CLASSIC) Does not apply Device No No Si Kit once for 1 dose. Insulin Aspart 100 UNIT/ML Subcutaneous Solution Cartridge 06/25/2024 Yes Yes Sig: Uses in insulin PUMP, prescribed directions up to 60 units per day. Patient does not know her pump settings or what her daily totals are RELION LANCETS MICRO-THIN 33G Does not apply Misc No No Si Lancet 4 times a day before meals and at bedtime. amitriptyline (ELAVIL) 25 MG Oral Tab 06/24/2024 Self Yes Yes Sig: Take 25 mg by mouth at bedtime. aspirin 81 MG Oral Chew Tab 06/25/2024 No Yes Sig: Chew 1 Tablet (81 mg total) daily. atorvastatin (LIPITOR) 40 MG Oral Tab 06/24/2024 No Yes Sig: Take 1 Tablet (40 mg total) by mouth at bedtime. ferrous sulfate (IRON) 325 (65 Fe) MG Oral Tab 06/25/2024 am Self Yes Yes Sig: Take 325 mg by mouth twice a day. insulin infusion pump 06/25/2024 Yes Yes Sig: Inject 0-10 Units subcutaneously daily. Document 24-hour insulin total (Total Daily Dose) Type of insulin being used in the pump: Novolog Insulin Basal rate ? units/hour Correction factor ? units of insulin to decrease blood glucose by ? mg/dL Insulin / Carb ratio ?/? units/grams lisinopril (PRINIVIL) 20 MG Oral Tab 06/25/2024 No Yes Sig: Take 1 Tablet (20 mg total) by mouth once daily every morning. metoprolol succinate (TOPROL XL) 100 MG Oral TABLET SR 24 HR 06/24/2024 No Yes Sig: Take 1 Tablet (100 mg total) by mouth daily. Do not crush or chew Patient taking differently: Take 100 mg by mouth once daily every evening. Do not crush or chew Facility-Administered Medications: None IMMUNIZATIONS: Immunization History Administered Date(s) Administered DTP 1985, 1985, 1985, 09/01/1987 MMR 09/01/1987 Polio - OPV 1985, 1985, 09/01/1987, 02/28/1989 Rhogam 09/14/2016 Tb Intradermal 05/05/2001 Tdap 07/15/2015 PHYSICAL EXAMINATION: VITAL SIGNS: Temp: 97.4 ??F (36.3 ??C) BP: (!) 160/107 HR: 113 RR: 13 SpO2: 100 % GENERAL APPEARANCE: alert, well appearing, and in no distress and oriented to person, place, and time. ENT EXAM: - ENT exam normal, no neck nodes or sinus tenderness. HEAD: Atraumatic, normocephalic NECK EXAM - supple, no significant adenopathy. CVS EXAM: normal rate, regular rhythm, normal S1, S2, no murmurs, rubs, clicks or gallops. CHEST EXAM: clear to auscultation, no wheezes, rales or rhonchi, symmetric air entry. ABDOMINAL EXAM: soft, nontender, nondistended, no masses or organomegaly. EXAM OF EXTREMITIES: peripheral pulses normal, no pedal edema, no clubbing or cyanosis NEUROLOGICAL EXAM: alert, oriented, normal speech, no focal findings or movement disorder noted. EKG: Reviewed by Chivo Curtis MD appears normal, NSR. LABS: Labs in Last 24 hours Lab Components 06/25/24 1622 06/25/24 1657 06/25/24 1822 06/25/24 1849 06/25/242015 WBC 4.88 -- -- -- -- RBC 3.58* -- -- -- -- HGB 9.7* -- -- -- -- HCT 28.8* -- -- -- -- PCT 309 -- -- -- -- NEUT 74.4 -- -- -- -- LYMPH 20.5 -- -- -- -- MONOS 3.5 -- -- -- -- EOS 0.6 -- -- -- -- GLU 136* -- 310* -- -- BUN 28* -- 30* -- -- CRS 1.10* -- 1.05* -- -- NA 141 -- 139 -- -- K 4.5 -- 4.6 -- -- CH 107 -- 106 -- -- AGPK 6 -- 7 -- -- CA 9.7 -- 9.0 -- -- ALB 4.3 -- -- -- -- TP 7.5 -- -- -- -- TBIL 0.3 -- -- -- -- AST 53* -- -- -- -- ALT 41 -- -- -- -- ALK 127* -- -- -- -- POCGLU -- < > -- < > 303* < > = values in this interval not displayed. ABG results None IMAGING: CXR (Portable) Final Result Right upper lobe consolidation concerning for pneumonia. Electronically signed by: Kolby Tobar MD 06/25/2024 7:39 PM PROBLEM LIST: Active Problems: * No active hospital problems. * ASSESSMENT AND PLAN: This is a 39 year old female admitted on 06/25/2024 for episode of hypoglycemia and unresponsiveness T1DM complicated by hypoglycemia Insulin pump in place Likely 2/2 no PO intake today with insulin pump being on. Pump is currently off and will leave off and manage BG with ISS and give lantus 10 units now due to eprsistent hyperglycemia over last few hours and being type 1 diabetic. Continue frequent accu checks. RUL Pneumonia Incidental finding. Could be aspiration from episode of unresponsiveness this AM. Pt is afebrile without leukocytosis nor any respiratory sx. No need for IV abx. Will continue with augmentin for now. Hypertension Continue home medications Normocytic anemia Hgb at baseline. CBC daily. DVT PROPHYLAXIS: lovenox CODE: Code Status: Full code NECESSITY OF MEDICAL SERVICES: The patient's acute signs and symptoms include: weakness and hypoglycemia, unresponsive . The patient's relevant comorbidities include: T1DM The patient will receive services that include: intensive nursing care. The patient's risk of leaving the hospital includes: increased risk of morbidity, end organ injury,risk of further decompensation, and hemodynamic instability. There are no questions and answers to display. documented in this encounter Nursing Notes * Deana Rodriguez, RN - 06/26/2024 10:58 AM EST Shaping Machine Operator Note: Met with pt. I am familiar with her from prior admissions.She has Type 1 DM, dx at age 21. Follows with [facility] Endocrinology Dr. Rodriguez and Cecy Valero APRN. She was previously on Novolog and Lantus (also Tresiba at one point) SC injections but on Feb 02 switched to the iLET insulin pump withNovolog. This pump does not have pump settings but rather starts with an algorithm that uses her body weight and target BG. She is required to tell the pump when she is eating a meal, she specifieswhich meal and if she is eating the usual amount, less than usual or more than usual. The pump willadjust for the meal and use her Dexcom G7 CGM to get her to target BG. She arrives with severe hypoglycemia at home on morning of 06/25. The night prior ( evening) at 11pm she had eaten a very large meal, 2 plates full of food and a lot of soda. She gave herself insulin via her pump as if she ate a normal meal (10.9 units) and then went to bed. Her hx shows that her glucose did spike high overnight and the pump algorithm gave her multiple boluses to bring it down, approx 12 units looks to have been given while she was sleeping. Her glucose eventually camedown to normal and then trended down hypoglycemic by 9am which is when she woke up to her Dexcom alarming that she was low. She does not remember what number she was at but she drank a huge glass of lemonade. Her pump happened to alarm that it was out of insulin so she added more insulin to it and changed her pump site and went back to bed. She had not given herself insulin at that time. Pump hx shows her glucose did come back up but then trended down again and she woke up to shot polisher and inspector. Concerns noted from pump are that it seems to have given her a lot of insulin to correct her glucose. This is the algorithm and there is really no way to change it. I talked to pt about making sure she boluses at the right time for meals, eating consistent carb, and choosing eating more than usual in her pump when appropriate to prevent the spike from happening. The other concern is that the pump ran out of insulin at that time, unsure if this was just a coincidence in timing or if the pump was actually malfunctioning and giving her too much insulin until it ran out. The history shows that the pump did stop giving her boluses as soon as her glucose started correcting down. Discussed plan with providers and pt. She can restart her pump and we will watch her for 24 hours to make sure her pump is working safely or she can switch back to Lantus and Novolog SC injections and discharge home with plan to talk with her theatrical rigger and pump company about her pump concerns. Pt does not want to stay in the hospital. She prefers to use Lantus Solostar 16 units at HS and Novolog Flexpens 5 units with meals and correction factor 50, target 150 at home. She states she has Lantus and Novolog pens unexpired in her fridge, pen needles and more Dexcom G7 sensors. She denies the need for any scripts. documented in this encounter ED Notes * Ajith Dowling RN - 06/25/2024 8:57 PM EST Hospitalist at the bedside. Patient ok to eat per provider, given a boxed lunch. * Ajith Dowling RN - 06/25/2024 8:41 PM EST Provider at bedside to update patient on results and plan of care. Antibiotics initiated per AUG. * jAith Dowling RN - 06/25/2024 7:38 PM EST Assumed care of patient and introduced self. Patient is resting on the stretcher, aox4, speaking in full sentences. Respirations are even and unlabored, skin WNL for ethnicity. Continues on full monitor, tachycardic in 110's and hypertensive. Denies CP or SOB Patient reports hx of HTN and takes a BP medication at night but unsure of the name. Patient is moving all extremities without issue, conversing with family on the phone. Reports feeling much better than when she came in. Initial NS bolus continues to infuse, additional NS bolus initiated per MAR. Patient reminded to leave arm straight for fluid administration and agreeable. Denies further needs. Call martinez in reach. * Ajith Dowling RN - 06/25/2024 7:25 PM EST XR at the bedside. * Cristal Kenny RN - 06/25/2024 7:08 PM EST Patient ambulatory to bathroom with steady gait * Cristal Kenny RN - 06/25/2024 4:09 PM EST Patient updated on need for blood work and requesting lab draw her stating she is a hard stick Lab paged at this time * Cristal Kenny RN - 06/25/2024 4:05 PM EST Patient provided with ashleigh crackers, peanut butter and orange juice at this time BG rechecked and 129 Patient sitting up at edge of bed to eat at this time VS remain stable * Cristal Kenny RN - 06/25/2024 3:[address] Sapp at the bedside * Cristal Kenny RN - 06/25/2024 2:58 PM EST D 10 infusion complete and BG rechecked- BG 201 Patient denies nausea at this time Patient ambulatory to bathroom with steady gait Patient provided urine sample if needed * Cristal Kenny RN - 06/25/2024 2:30 PM EST D10 infusion running Patient awake and alert speaking to this RN Insulin pump completely removed from patient and placed at the bedside Patients skin feels warmer, oral temperature rechecked and 97.4 at this time * Cristal Kenny RN - 06/25/2024 1:30 PM EST D10 infusion complete at this time BG rechecked and 88 Patient denies nausea at this time * Cristal Kenny RN - 06/25/2024 12:47 PM EST Patient arrived for hypoglycemia. EMS reports BG reading 'low' <20. Patient has insulin pump. IVplaced by EMS and patient received D10 with some improvement to BG 148 after 250 mL of D10. EMS reports patient vomited approximately 1L of vomit ELEMENT SETTER. Patient received 10 mg IV Reglan. Patient awake and alert although speaking minimally with this RN. Patient asked to stop insulin pump at this time. BG checked and 53. Remaining D10 infusion placed wide open and ED provider made aware. Patients skin clammy. Unable to obtain temp both oral and axillary. documented in this encounter Miscellaneous Notes * Discharge Note - Rk Kaminski RN - 06/26/2024 5:26 PM EST Discharge instructions reviewed with Pt. Discussed medication schedule and follow up appointments with Pt. IV removed. All questions answered, no further questions at this time. Pt being driven home by family member. 1759: Pt discharged. * Care Plan Note - Rk Kaminski RN - 06/26/2024 11:06 AM EST Identify Barriers To Meeting Goals/Advancing Plan Of Care: Electrolyte repletion, blood sugar management, backend developer consult. Teaching needs/Teaching status: Pt educated on plan of care, pt receptive to teaching Out of Bed Activity This Shift: Pt ambulating in hallway, steady gait. Needs Prior to Discharge: Shift Event Update: Report received from off going RN A&Ox 4. LS clear. Shift events listed below: Assessments documented in flowsheets, Medications administered per MAR. Problem: Metabolic/Fluid and Electrolytes - Adult Goal: Glucose maintained within prescribed range Description: INTERVENTIONS: 1. Monitor Blood Glucose as ordered 2. Assess for signs and symptoms of hyperglycemia and hypoglycemia 3. Administer ordered medications to maintain glucose within target range 4. Assess barriers to adequate nutritional intake and initiate nutrition consult as needed 5. Instruct patient on self management of diabetes and initiate consult as needed Outcome: Progressing Flowsheets (Taken 06/26/2024 1106) Addressed this shift: Glucose maintained within prescribed range: Monitor Blood Glucose as ordered Assess for signs and symptoms of hyperglycemia and hypoglycemia Administer ordered medications to maintain glucose within target range Assess barriers to adequate nutritional intake and initiate nutrition consult as needed Instruct patient on self management of diabetes and initiate consult as needed Problem: Metabolic/Fluid and Electrolytes - Adult Goal: Electrolytes maintained within normal limits Description: INTERVENTIONS: 1. Monitor labs and assess patient for signs and symptoms of electrolyte imbalances 2. Administer electrolyte replacement as ordered 3. Monitor response to electrolyte replacements, including repeat lab results as appropriate 4. Fluid restriction as ordered 5. Instruct patient on fluid and nutrition restrictions as appropriate Outcome: Progressing Flowsheets (Taken 06/26/2024 0134 by Kim Porter RN) Addressed this shift: Electrolytes maintained within normal limits: Monitor labs and assess patientfor signs and symptoms of electrolyte imbalances * Case Management - Joleen Manzano RN - 06/26/2024 10:32 AM EST OBSERVATION STATUS CM met with the patient at the bedside and reviewed the role of CM in discharge planning. The patient arrives to the ED from home via EMS after her children found her unresponsive. Upon arrival, EMS slates her BGL was less than 20, she has an insulin pump on and it was stopped. She was administered 250 cc of D 10 and it increased, fluids stopped, her BGL dropped again and the D10 was continued as the patient arrives at the ED. She had emesis in the EMS and received IV Reglan after emesis. In the ED, she has a dx of pneumonia and is on po ABX. She has IV medications and multiple prn medications for BGL's. Her kidney lab values are out of range and she requires electrolyte replacement. PMHX: T1DM, HTN, depression, and gastroparesis. She shares her apartment with her 2 children under 18. There is a FOS to her 2nd floor apartment. Her mother lives in the downstairs apartment/duplex. The patient is sleepy and is interactive with this marketing writer. One of her children will bring her home from the hospital- she names her son Asim at [phone]. Cm will monitor for any discharge needs. [place]: No AD: No Demographics and pharmacy verified. Her son Azam phone number is incorrect.and is out of town. Brendon was added to the list. 06/26/24 1030 Discharge Planning Interdisciplinary Rounding Bedside Living Arrangements Children (2 children live with her under 18) Support Systems Children;Parent Type of Residence Apartment In a typical week, how many times do you talk on the phone with family, friends, or neighbors? Morethan 3 How often do you get together with friends or relatives? Twice How often do you attend yazdanism or amish services? Never Do you belong to any clubs or organizations such as yazdanism groups, unions, fraternal or athletic groups, or school groups? No How often do you attend meetings of the clubs or organizations you belong to? Never Are you , , , , never , or living with a partner? Living with Home Care Services No Patient expects to be discharged to: No needs identified Activities of Daily Living Functional Status Independent Ambulation Independent Dressing Independent Feeding Independent Driving Yes Housing Stability In the last 12 months, was there a time when you were not able to pay the mortgage or rent on time?N In the past 12 months, how many times have you moved where you were living? 0 At any time in the past 12 months, were you homeless or living in a long term (including now)? N Food Insecurity Within the past 12 months, you worried that your food would run out before you got the money to buymore. Never true Within the past 12 months, the food you bought just didn't last and you didn't have money to get more. Never true Transportation Needs In the past 12 months, has lack of transportation kept you from medical appointments or from getting medications? no In the past 12 months, has lack of transportation kept you from meetings, work, or from getting things needed for daily living? No Utilities In the past 12 months has the [employer], gas, oil, or water [employer] threatened to shut off services in your home? No Intimate Partner Violence Within the last year, have you been afraid of your partner or ex-partner? No Within the last year, have you been humiliated or emotionally abused in other ways by your partner or ex-partner? No Within the last year, have you been kicked, hit, slapped, or otherwise physically hurt by your partner or ex-partner? No Within the last year, have you been raped or forced to have any kind of sexual activity by your partner or ex-partner? No * Care Plan Note - Kim Porter RN - 06/26/2024 1:35 AM EST Identify Barriers To Meeting Goals/Advancing Plan Of Care: Teaching needs/Teaching status: Patient is receptive to teaching and engaged in plan of care Out of Bed Activity This Shift (Include Assistance Required): Discharge Needs: Pending Clinical Course Shift Event Update: Pt used bed side commode during the night as she stated she felt very weak to walk, BG was monitored during the shift, 3am BG check was 185 pt denies pain, all safety measure in place. Assessments and vitals as documented, see flowsheet. Pt medicated per AUG. Pt updated on plan of care and medication administration. Pt rounded on frequently throughout shift for comfort and safety. Bed in lowest position with bed alarm activated Call martinez within reach. Bedside handoff given to oncoming RN, safety checks completed. Problem: Safety Adult - Fall Goal: Free from fall injury Description: INTERVENTIONS: 1. Assess patient frequently for physical needs. 2. Identify cognitive and physical deficits and behaviors that affect risk of falls. 3. [place] fall precautions as indicated by assessment. 4. Educate patient/family on patient safety, including physical limitations. 5. Instruct patient to call for assistance with activity based on assessment. 6. Modify environment to reduce risk of injury. 7. Consider use of assistive mobility devices. 8. Consider OT/PT consult to assist with strengthening/mobility. Outcome: Progressing Problem: Metabolic/Fluid and Electrolytes - Adult Goal: Electrolytes maintained within normal limits Description: INTERVENTIONS: 1. Monitor labs and assess patient for signs and symptoms of electrolyte imbalances 2. Administer electrolyte replacement as ordered 3. Monitor response to electrolyte replacements, including repeat lab results as appropriate 4. Fluid restriction as ordered 5. Instruct patient on fluid and nutrition restrictions as appropriate Outcome: Progressing Flowsheets (Taken 06/26/2024133) Addressed this shift: Electrolytes maintained within normal limits: Monitor labs and assess patientfor signs and symptoms of electrolyte imbalances Goal: Hemodynamic stability and optimal renal function maintained Description: INTERVENTIONS: 1. Monitor labs and assess for signs and symptoms of volume excess or deficit 2. Monitor intake, output and patient weight 3. Monitor urine specific gravity, serum osmolarity and serum sodium as indicated or ordered 4. Monitor response to interventions for patient's volume status, including labs, urine output, blood pressure (other measures as available) 5. Encourage oral intake as appropriate 6. Instruct patient on fluid and nutrition restrictions as appropriate Outcome: Progressing Goal: Glucose maintained within prescribed range Description: INTERVENTIONS: 1. Monitor Blood Glucose as ordered 2. Assess for signs and symptoms of hyperglycemia and hypoglycemia 3. Administer ordered medications to maintain glucose within target range 4. Assess barriers to adequate nutritional intake and initiate nutrition consult as needed 5. Instruct patient on self management of diabetes and initiate consult as needed Outcome: Progressing Flowsheets (Taken 06/26/2024133) Addressed this shift: Glucose maintained within prescribed range: Monitor Blood Glucose as ordered Administer ordered medications to maintain glucose within target range Assess for signs and symptoms of hyperglycemia and hypoglycemia Assess barriers to adequate nutritional intake and initiate nutrition consult as needed * RPh/RN ELEMENT SETTER Medication Note - Jazmin Wilson, PharmD - 06/25/2024 4:03 PM EST RPh/RN ELEMENT SETTER Medication Note Medication Review Completed: Prior to Admission Medication Information Obtained From: Patient and Surescripts Recently Completed Medications: None Significant Medication Changes: None PDMP last reviewed by Jazmin Wilson PharmD on 06/25/2024 4:03 PM Compliance Assessment: No Concerns Noted Anticoagulation/Platelet Medications: Aspirin Non-Formulary Medications(no alternative available): None Preferred Pharmacy: [id number] [place] [id number] [id number] Allergies: Review of patient's allergies indicates: Ondansetron Hcl Rash, Itching Communication to Provider: None * Arrival Note - Kim Porter RN - 06/25/2024 9:45 AM EST Pt arrived on the floor, assisted to bed with assist x1, pt stated she felt weak and asked for a walker to use the bathroom, pt A&O x4, oriented to unit and use of call light, now assuming care of pt, will continue to monitor. documented in this encounter Plan of Treatment Scheduled Orders Name Type Priority Associated Diagnoses Orde r Schedule Complete Blood Count with Auto Differential Lab Routine Hypoglycemia Expected: 06/29/2024, Expires: 06/26/2025 Comprehensive Metabolic Panel Lab Routine Hypoglycemia Expected: 06/29/2024, Expires: 06/26/2025 Magnesium Lab Routine Hypoglycemia Expected: 06/29/2024, Expires: 06/26/2025 Phosphorus Lab Routine Hypoglycemia Expected: 06/29/2024, Expires: 06/26/2025 documented as of this encounter Procedures Procedure Name Priority Date/Time Associated Diagnosis Comments URINALYSIS, REFLEX TO MICROSCOPY AND CULTURE IF INDICATED STAT 06/26/2024 2:09 PM EST STREP PNEUMONIAE ANTIGEN Routine 2:09 PM EST LEGIONELLA ANTIGEN, URINE Routine 2023 2:09 PM EST URINE CULTURE STAT 06/26/2024 2:09 PM EST POC GLUCOSE LEVEL UNSOLICITED RESULTS Routine 06/26/2024 11:45 AM EST PHOSPHORUS Routine 06/26/2024 8:13 AM EST MAGNESIUM Routine 06/26/2024 8:13 AM EST BASIC METABOLIC PANEL Routine 06/26/2024 8:13 AM EST HEMOGLOBIN A1C Routine 06/26/2024 8:13 AM EST COMPLETE BLOOD COUNT WITH AUTO DIFFERENTIAL Routine 06/26/2024 8:13 AM EST COMPLETE BLOOD COUNT WITH AUTO DIFFERENTIAL Routine 06/26/2024 8:13 AM EST POC GLUCOSE LEVEL UNSOLICITED RESULTS Routine 06/26/2024 7:34 AM EST POC GLUCOSE LEVEL UNSOLICITED RESULTS Routine 06/26/2024 5:35 AM EST POC GLUCOSE LEVEL UNSOLICITED RESULTS Routine 06/26/2024 2:48 AM EST POC GLUCOSE LEVEL UNSOLICITED RESULTS Routine 06/25/2024 11:06 PM EST POC GLUCOSE LEVEL UNSOLICITED RESULTS Routine 06/25/2024 9:00 PM EST POC GLUCOSE LEVEL UNSOLICITED RESULTS Routine 06/25/2024 8:16 PM EST XR PORT CHEST VIEW 1 VIEW FRONTAL STAT 06/25/2024 7:32 PM EST Hypoglycemia POC GLUCOSE LEVEL UNSOLICITED RESULTS Routine 06/25/2024 6:49 PM EST TROPONIN, HS INITIAL AND 2 HOUR PERFORMABLE STAT 06/25/2024 6:22 PM EST BLOOD GAS, VENOUS STAT 06/25/2024 6:2 2 PM EST BASIC METABOLIC PANEL STAT 06/25/2024 6:22 PM EST POC GLUCOSE LEVEL UNSOLICITED RESULTS Routine 06/25/2024 5:44 PM EST POC GLUCOSE LEVEL UNSOLICITED RESULTS Routine 06/25/2024 4:57 PM EST TROPONIN, HS INITIAL AND 2 HOUR STAT 06/25/2024 4:22 PM EST LACTIC ACID WITH REFLEX STAT 06/25/20 4:22 PM EST TROPONIN, HS STAT 06/25/2024 4:22 PM EST COMPREHENSIVE METABOLIC PANEL STAT 06/25/2024 4:22 PM EST COMPLETE BLOOD COUNT WITH AUTO DIFFERENTIAL STAT 06/25/2024 4:22 PM EST COMPLETE BLOOD COUNT WITH AUTO DIFFERENTIAL STAT 06/25/2024 4:22 PM EST BLOOD CULTURE STAT 06/25/2024 4:22 PM EST HCG, QUALITATIVE, URINE STAT 06/25/20 4:04 PM EST RESPIRATORY PANEL 2 BIOFIRE FILMARRAY NAAT STAT 06/25/2024 4:04 PM EST URINALYSIS, REFLEX TO MICROSCOPY AND CULTURE IF INDICATED STAT 06/25/2024 4:03 PM EST POC GLUCOSE LEVEL UNSOLICITED RESULTS Routine 06/25/2024 4:01 PM EST ELECTROCARDIOGRAM (ECG/EKG)-HOSPITAL Routine 06/25/2024 3:20 PM EST Hypoglycemia POC GLUCOSE LEVEL UNSOLICITED RESULTS Routine 06/25/2024 2:47 PM EST POC GLUCOSE LEVEL UNSOLICITED RESULTS Routine 06/25/2024 2:16 PM EST POC GLUCOSE LEVEL UNSOLICITED RESULTS Routine 06/25/2024 1:32 PM EST POC GLUCOSE LEVEL UNSOLICITED RESULTS Routine 06/25/2024 12:57 PM EST documented in this encounter Results * Strep pneumoniae Antigen (06/26/2024 2:09 PM EST) Strep pneumoniae Antigen Negative Negative 06/26/2024 2:34 PM EST [facility] Comment: Testing Performed by Immunochromatographic Antigen Detection Urine URINE SPECIMEN OBTAINED BY CLEAN CATCH PROCEDURE / Unknown Non-Blood Collection / Unknown 06/26/2024 2:09 PM EST 06/26/2024 2:13 PM EST Rhianna L Aron PAC LAB MICROBIOLOGY - G ENERAL ORDERABLES Performing Organization Address City/[facility]/ZIP Co de Phone Number [facility] [address] [place] [phone] * Legionella Antigen, Urine (06/26/2024 2:09 PM EST) Legionella pneumophila serotype 1 antigen Negative Negative 06/26/2024 2:34 PM EST [facility] Comment: Testing Performed by Immunochromatographic Antigen Detection Urine URINE SPECIMEN OBTAINED BY CLEAN CATCH PROCEDURE / Unknown Non-Blood Collection / Unknown 06/26/2024 2:09 PM EST 06/26/2024 2:13 PM EST Rhianna L Aron PAC LAB URINE ORDERABLES Performing Organization Address City/[facility]/ZIP Co de Phone Number [facility] [address] [place] [phone] * (ABNORMAL) Urinalysis, Microscopy and Culture if Indicated (06/26/2024 2:09 PM EST) Color, Urine Yellow Colorless, Yellow, Straw, Dolly, Light Yellow, Dark-Yellow 06/26/2024 3:09 PM [facility] Clarity, Urine Turbid(A) Clear 06/26/2024 3:09 PM [facility] Glucose, Urine 150(A) Normal mg/dL 06/26/2024 3:09 PM [facility] Bilirubin, Urine Negative Negative mg/dL 06/26/2024 3:09 PM [facility] Ketones, Urine 10(A) Negative mg/dL 06/26/2024 3:09 PM [facility] Specific [place], Urine 1.012(L) 1.015 - 1.025 06/26/2024 3:09 PM [facility] Blood, Urine 0.2(A) Negative mg/dL 06/26/2024 3:09 PM [facility] pH, Urine 5.5 5.0 - 9.0 06/26/2024 3:09 PM [facility] Protein, Urine 70(A) Negative to 10 mg/dL 06/26/2024 3:09 PM [facility] Urobilinogen, Urine Normal Normal mg/dL 06/26/2024 3:09 PM [facility] Nitrite, Urine Negative Negative 06/26/2024 3:09 PM [facility] Leukocytes, Urine 500(A) Negative WBC/uL 06/26/2024 3:09 PM [facility] Bacteria, Urine 1+(A) None Seen /HPF 06/26/2024 3:09 PM [facility] WBC, Urine >182(H) <=3 /HPF 06/26/2024 3:09 PM [facility] RBC, Urine 105(H) <=2 /HPF 06/26/2024 3:09 PM [facility] Squamous Epithelial, Urine 27(H) <=20 /LPF 06/26/2024 3:09 PM [facility] Urine URINE SPECIMEN OBTAINED BY CLEAN CATCH PROCEDURE / Unknown Non-Blood Collection / Unknown 06/26/2024 2:09 PM EST 06/26/2024 2:51 PM EST Chivo Curtis MD LAB URINE ORDERABLES Performing Organization Address [facility] Co de Phone Number [facility] [address] [place] [address] * Urine Culture (06/26/2024 2:09 PM EST) Urine Culture >100,000 CFU/mL of mixed urogenital lon, suggestive of contamination. 06/28/2024 10:04 AM EST [facility] Urine URINE SPECIMEN OBTAINED BY CLEAN CATCH PROCEDURE / Unknown Non-Blood Collection / Unknown 06/26/2024 2:09 PM EST 06/26/2024 2:13 PM EST Narrative [facility] - 06/28/2024 10:04 AM EST Suggest Repeat. Chivo Curtis MD LAB URINE ORDERABLES Performing Organization Address [facility] Co de Phone Number [facility] [address] [place] [address] * (ABNORMAL) POC Glucose Level (06/26/2024 11:45 AM EST) Glucose POC 165(H) 74 - 100 mg/dL 06/26/2024 11:46 AM EST [facility] POC WAIVED TESTING(CLIA# [id number]) POC INSPECTOR BOILER LUIS AYERS 11:46 AM EST EH POC WAIVED TESTING(CLIA# [id number]) Blood ENTIRE ANTECUBITAL VEIN / Unknown 06/26/2024 11:45 AM EST 06/26/2024 11:46 AM EST Point Of Care Provider LAB POINT OF CARE TEST DOCKED DEVICE UNSOLICITED RESULTS Performing Organization Address [facility] Co de Phone Number POC WAIVED TESTING(CLIA#[id number]) [address] [place] [address] * (ABNORMAL) Hemoglobin A1c (06/26/2024 8:13 AM EST) Hemoglobin A1C 7.8(H) <=5.7 % LAB SEROLOGY ATELLICA METHOD 06/26/2024 11:25 AM [facility] Est. Average Glucose 177(H) 68 - 123 mg/dL LAB SEROLOGY ATELLICA METHOD 06/26/2024 11:25 AM [facility] Blood ENTIRE ANTECUBITAL VEIN / Unknown Venipuncture / Unknown 06/26/2024 8:13 AM EST 06/26/2024 9:05 AM EST Rhianna Sharp [facility] LAB BLOOD ORDERABLES [facility] [address] [place] [address] * (ABNORMAL) Complete Blood Count with Auto Differential (06/26/2024 8:13 AM EST) WBC 15.83(H) 4.23 - 10.80 10*3/uL 06/26/2024 9:45 AM [facility] RBC 3.03(L) 4.20 - 5.40 10*6/uL 06/26/2024 9:45 AM [facility] HGB 8.2(L) 12.0 - 16.0 g/dL 06/26/2024 9:45 AM [facility] HCT 23.5(L) 35.0 - 45.0 % 06/26/2024 9:45 AM [facility] Comment:Repeated and verifie d MCV 77.6(L) 80.0 - 96.0 fL 06/26/2024 9:45 AM [facility] MCH 27.1 27.0 - 32.0 pg 06/26/2024 9:45 AM [facility] MCHC 34.9 32.0 - 37.0 g/dL 06/26/2024 9:45 AM [facility] RDW 12.7 11.5 - 14.5 % 06/26/2024 9:45 AM [facility] Platelet 278 150 - 400 10*3/uL 06/26/2024 9:45 AM [facility] MPV 10.4 9.7 - 13.2 fL 06/26/2024 9:45 AM [facility] Neutrophils % 86.9 % 06/26/2024 9:45 AM [facility] Lymphocytes % 9.3 % 06/26/2024 9:45 AM [facility] Monocytes % 2.9 % 06/26/2024 9:45 AM [facility] Eos % 0.1 % 06/26/2024 9:45 AM [facility] Basophils % 0.4 % 06/26/2024 9:45 AM [facility] Immature Granulocytes % 0.40 % 06/26/2024 9:45 AM [facility] Abs Neutrophils 13.75(H) 1.40 - 7.70 10*3/uL 06/26/2024 9:45 AM [facility] Abs Lymphocytes 1.48 1.10 - 4.00 10*3/uL 06/26/2024 9:45 AM [facility] Abs Monocytes 0.46 0.10 - 1.10 10*3/uL 06/26/2024 9:45 AM [facility] Abs Eosinophils 0.02 0.00 - 0.70 10*3/uL 06/26/2024 9:45 AM [facility] Abs Basophils 0.06 0.00 - 0.20 10*3/uL 06/26/2024 9:45 AM [facility] Abs Immature Granulocytes 0.06(H) 0.00 - 0.03 10*3/uL 06/26/2024 9:45 AM [facility] Blood ENTIRE ANTECUBITAL VEIN / Unknown Venipuncture / Unknown 06/26/2024 8:13 AM EST 06/26/2024 9:05 AM EST Chivo Curtis MD LAB BLOOD ORDERABLES [facility] [address] [place] [address] * (ABNORMAL) Phosphorus (06/26/2024 8:13 AM EST) Phosphorus 1.8(L) 2.4 - 5.1 mg/dL LAB SEROLOGY ATELLICA METHOD 06/26/2024 9:39 AM EST [facility] Blood ENTIRE ANTECUBITAL VEIN / Unknown Venipuncture / Unknown 06/26/2024 8:13 AM EST 06/26/2024 9:04 AM EST Chivo Curtis MD LAB BLOOD ORDERABLES Performing Organization Address [facility]/ZIP Co de Phone Number [facility] [address] [place] [address] * Magnesium (06/26/2024 8:13 AM EST) Pathologist [facility] Magnesium 1.6 1.6 - 2.6 mg/dL LAB SEROLOGY ATELLICA METHOD 06/26/2024 9:39 AM [facility] Blood ENTIRE ANTECUBITAL VEIN / Unknown Venipuncture / Unknown 06/26/2024 8:13 AM EST 06/26/2024 9:04 AM EST Chivo Curtis MD LAB BLOOD ORDERABLES Performing Organization Address [facility] de Phone Number [facility] [address] [place] [address] * (ABNORMAL) Basic Metabolic Panel (06/26/2024 8:13 AM EST) Sodium 142 136 - 145 mmol/L LAB SEROLOGY ATELLICA METHOD 06/26/2024 9:39 AM [facility] Potassium 3.7 3.5 - 5.1 mmol/L LAB SEROLOGY ATELLICA METHOD 06/26/2024 9:39 AM [facility] Chloride 111(H) 98 - 107 mmol/L LAB SEROLOGY ATELLICA METHOD 06/26/2024 9:39 AM [facility] Carbon Dioxide 26 20 - 31 mmol/L LAB SEROLOGY ATELLICA METHOD 06/26/2024 9:39 AM [facility] Anion Gap 5 5 - 15 mmol/L LAB SEROLOGY ATELLICA METHOD 06/26/2024 9:39 AM [facility] Glucose 148(H) 74 - 100 mg/dL LAB SEROLOGY ATELLICA METHOD 06/26/2024 9:39 AM [facility] BUN 18 9 - 23 mg/dL LAB SEROLOGY ATELLICA METHOD 06/26/2024 9:39 AM [facility] Creatinine 0.93 0.55 - 1.02 mg/dL LAB SEROLOGY ATELLICA METHOD 06/26/2024 9:39 AM [facility] Calcium 8.6 8.3 - 10.6 mg/dL LAB SEROLOGY ATELLICA METHOD 06/26/2024 9:39 AM [facility] BUN/Creatinine Ratio 19.35 LAB SEROLOGY ATELLICA METHOD 06/26/2024 9:39 AM [facility] eGFR 80 >=60 mL/min/1.7 3m*2 LAB SEROLOGY ATELLICA METHOD 06/26/2024 9:39 AM [facility] Blood ENTIRE ANTECUBITAL VEIN / Unknown Venipuncture / Unknown 06/26/2024 8:13 AM EST 06/26/2024 9:04 AM EST Chivo Curtis MD LAB BLOOD ORDERABLES Performing Organization Address City/[facility]/ZIP Co de Phone Number [facility] [address] [place] [address] * (ABNORMAL) POC Glucose Level (06/26/2024 7:34 AM EST) Glucose POC 199(H) 74 - 100 mg/dL 06/26/2024 7:35 AM EST [facility] POC WAIVED TESTING(CLIA# [id number]) POC INSPECTOR BOILER GLORIA GONZALEZ 06/26/2024 7:35 AM EST EH POC WAIVED TESTING(CLIA# [id number]) Blood ENTIRE ANTECUBITAL VEIN / Unknown 06/26/2024 7:34 AM EST 06/26/2024 7:35 AM EST Point Of Care Provider LAB POINT OF CARE TEST DOCKED DEVICE UNSOLICITED RESULTS Performing Organization Address City/[facility] Co de Phone Number EH POC WAIVED TESTING(CLIA#[id number]) [address] [place] [address] * (ABNORMAL) POC Glucose Level (06/26/2024 5:35 AM EST) Glucose POC 216(H) 74 - 100 mg/dL 06/26/2024 5:36 AM EST EH POC WAIVED TESTING(CLIA# [id number]) POC INSPECTOR BOILER FARHAD ALLISON 06/26/2024 5:36 AM EST EH POC WAIVED TESTING(CLIA# [id number]) Blood ENTIRE ANTECUBITAL VEIN / Unknown 06/26/2024 5:35 AM EST 06/26/2024 5:36 AM EST Point Of Care Provider LAB POINT OF CARE TEST DOCKED DEVICE UNSOLICITED RESULTS Performing Organization Address [facility] Co de Phone Number EH POC WAIVED TESTING(CLIA#[id number]) [address] [place] [address] * (ABNORMAL) POC Glucose Level (06/26/2024 2:48 AM EST) Glucose POC 185(H) 74 - 100 mg/dL 06/26/2024 2:53 AM EST EH POC WAIVED TESTING(CLIA# [id number]) POC INSPECTOR BOILER FARHAD ALLISON 06/26/2024 2:53 AM EST EH POC WAIVED TESTING(CLIA# [id number]) Blood ENTIRE ANTECUBITAL VEIN / Unknown 06/26/2024 2:48 AM EST 06/26/2024 2:53 AM EST Point Of Care Provider LAB POINT OF CARE TEST DOCKED DEVICE UNSOLICITED RESULTS Performing Organization Address [facility] Co de Phone Number EH POC WAIVED TESTING(CLIA#[id number]) [address] [place] [address] * (ABNORMAL) POC Glucose Level (06/25/2024 11:06 PM EST) Glucose POC 162(H) 74 - 100 mg/dL 06/25/2024 11:10 PM EST EH POC WAIVED TESTING(CLIA# [id number]) POC INSPECTOR BOILER FARHAD ALLISON 06/25/2024 11:10 PM EST EH POC WAIVED TESTING(CLIA# [id number]) Blood ENTIRE ANTECUBITAL VEIN / Unknown 06/25/2024 11:06 PM EST 06/25/2024 11:10 PM EST Point Of Care Provider LAB POINT OF CARE TEST DOCKED DEVICE UNSOLICITED RESULTS Performing Organization Address [facility] de Phone Number EH POC WAIVED TESTING(CLIA#[id number]) [address] [place] [address] * (ABNORMAL) POC Glucose Level (06/25/2024 9:00 PM EST) Glucose POC 247(H) 74 - 100 mg/dL 06/25/2024 9:01 PM EST EH POC WAIVED TESTING(CLIA# [id number]) POC INSPECTOR BOILER JOSELINE ALANIZIN 06/25/2024 9:01 PM EST EH POC WAIVED TESTING(CLIA# [id number]) Blood ENTIRE ANTECUBITAL VEIN / Unknown 06/25/2024 9:00 PM EST 06/25/2024 9:01 PM EST Point Of Care Provider LAB POINT OF CARE TEST DOCKED DEVICE UNSOLICITED RESULTS Performing Organization Address [facility] de Phone Number EH POC WAIVED TESTING(CLIA#[id number]) [address] [place] [address] * (ABNORMAL) POC Glucose Level (06/25/2024 8:16 PM EST) Glucose POC 303(H) 74 - 100 mg/dL 06/25/2024 8:16 PM EST EH POC WAIVED TESTING(CLIA# [id number]) POC INSPECTOR BOILER TEDDY AJITH 06/25/2024 8:16 PM EST EH POC WAIVED TESTING(CLIA# [id number]) Blood ENTIRE ANTECUBITAL VEIN / Unknown 06/25/2024 8:16 PM EST 06/25/2024 8:16 PM EST Point Of Care Provider LAB POINT OF CARE TEST DOCKED DEVICE UNSOLICITED RESULTS Performing Organization Address [facility] de Phone Number EH POC WAIVED TESTING(CLIA#[id number]) [address] [place] [address] * CXR (Portable) (06/25/2024 7:32 PM EST) Anatomical Region Laterality Modality Lung Computed Radiogr aphy Impressions 06/25/2024 7:39 PM EST Right upper lobe consolidation concerning for pneumonia. Electronically signed by: Kolby Tobar MD 06/25/2024 7:39 PM Narrative 06/25/2024 7:39 PM EST CHEST, 1 VIEW INDICATION: persistent hypoglycemia. COMPARISON: 03/02/2024. FINDINGS: Lungs: Right upper lobe consolidation. Pleural spaces: No effusions or pneumothorax. Heart: Within normal limits. Mediastinum: Within normal limits. Soft tissues: Unremarkable. Osseous structures: Unremarkable. Procedure Note Kolby Tobar MD - 06/25/2024 CHEST, 1 VIEW INDICATION: persistent hypoglycemia. COMPARISON: 03/02/2024. FINDINGS: Lungs: Right upper lobe consolidation. Pleural spaces: No effusions or pneumothorax. Heart: Within normal limits. Mediastinum: Within normal limits. Soft tissues: Unremarkable. Osseous structures: Unremarkable. IMPRESSION: Right upper lobe consolidation concerning for pneumonia. Electronically signed by: Kolby Tobar MD 06/25/2024 7:39 PM He Sapp MD PORT * (ABNORMAL) POC Glucose Level (06/25/2024 6:49 PM EST) [facility] Glucose POC 316(H) 74 - 100 mg/dL 06/25/2024 6:49 PM EST EH POC WAIVED TESTING(CLIA# [id number]) POC INSPECTOR BOILER SAULO Shanks 06/25/2024 6:49 PM EST EH POC WAIVED TESTING(CLIA# [id number]) Blood ENTIRE ANTECUBITAL VEIN / Unknown 06/25/2024 6:49 PM EST 06/25/2024 6:49 PM EST Point Of Care Provider LAB POINT OF CARE TEST DOCKED DEVICE UNSOLICITED RESULTS EH POC WAIVED TESTING(CLIA#[id number]) [address] [place] [address] * (ABNORMAL) Blood Gas, Venous (06/25/2024 6:22 PM EST) Temperature, VBG 37.0 C 06/25/2024 6:35 PM [facility] pH (T), VBG 7.420 7.220 - 7.460 06/25/2024 6:35 PM [facility] pCO2 (T), VBG 37.0 29.0 - 58.0 mmHG 06/25/2024 6:35 PM [facility] pO2 (T), VBG 152.0(H) 27.0 - 60.0 mmHG 06/25/2024 6:35 PM [facility] tHb, VBG 9.7(L) 12.0 - 18.0 g/dL 06/25/2024 6:35 PM [facility] O2 Hb, VBG 96.0(H) 60.0 - 90.0 % 06/25/2024 6:35 PM [facility] Met Hb, VBG 0.1 0.0 - 2.0 % 06/25/2024 6:35 PM [facility] Hct, VBG 29.0 % 06/25/2024 6:35 PM [facility] BASE, VBG -0.3 -2.5 - 2.5 mmol/L 06/25/2024 6:35 PM [facility] cHCO3- (P,st), VBG 24.0 19.0 - 25.0 mmol/L 06/25/2024 6:35 PM [facility] sO2, VBG 99.0(H) 60.0 - 90.0 % 06/25/2024 6:35 PM [facility] Blood ENTIRE ANTECUBITAL VEIN / Unknown Venipuncture / Unknown 06/25/2024 6:22 PM EST 06/25/2024 6:32 PM EST He Sapp MD LAB BLOOD ORDERABLES [facility] [address] [place] [address] * (ABNORMAL) Basic Metabolic Panel (06/25/2024 6:22 PM EST) Sodium 139 136 - 145 mmol/L LAB SEROLOGY [facility]ELLICA METHOD 06/25/2024 6:55 PM [facility] Potassium 4.6 3.5 - 5.1 mmol/L LAB SEROLOGY [facility] METHOD 06/25/2024 6:55 PM [facility] Chloride 106 98 - 107 mmol/L LAB SEROLOGY [facility] METHOD 06/25/2024 6:55 PM [facility] Carbon Dioxide 26 20 - 31 mmol/L LAB SEROLOGY [facility] METHOD 06/25/2024 6:55 PM [facility] Anion Gap 7 5 - 15 mmol/L LAB SEROLOGY [facility] METHOD 06/25/2024 6:55 PM [facility] Glucose 310(H) 74 - 100 mg/dL LAB SEROLOGY [facility] METHOD 06/25/2024 6:55 PM [facility] BUN 30(H) 9 - 23 mg/dL LAB SEROLOGY [facility] METHOD 06/25/2024 6:55 PM [facility] Creatinine 1.05(H) 0.55 - 1.02 mg/dL LAB SEROLOGY [facility] METHOD 06/25/2024 6:55 PM [facility] Calcium 9.0 8.3 - 10.6 mg/dL LAB SEROLOGY [facility] METHOD 06/25/2024 6:55 PM [facility] BUN/Creatinine Ratio 28.57 LAB SEROLOGY [facility] METHOD 06/25/2024 6:55 PM [facility] eGFR 69 >=60 mL/min/1. 73m*2 LAB SEROLOGY [facility] METHOD 06/25/2024 6:55 PM [facility] Blood ENTIRE ANTECUBITAL VEIN / Unknown Venipuncture / Unknown 06/25/2024 6:22 PM EST 06/25/2024 6:24 PM EST He Sapp MD LAB BLOOD ORDERABLES [facility] [address] [place] [id number] * Troponin, HS 2 Hour(reflex) (06/25/2024 6:22 PM EST) Troponin I HS, 2 hour <3 <=34 ng/L LAB SEROLOGY ATELLICA METHOD 06/25/2024 6:55 PM EST [facility] Blood ENTIRE ANTECUBITAL VEIN / Unknown Venipuncture / Unknown 06/25/2024 6:22 PM EST 06/25/2024 6:24 PM EST Narrative [facility] - 06/25/2024 6:55 PM EST Initial Sample: Result (ng/L) ? Clinical Decision ?< 3 ? Negative, Rule Out ?(if > 3 hrs of chest pain ONLY, ? if < 3 hrs continue to 2 hr specimen) ? > / = 120 ?Positive, likely acute myocardial injury 2 Hour Sample: Result ?(ng/L) ? Change (2nd to initial) ?Clinical Decision Result: ??3 -8 ?? Change < 7 ng/L ? Patient Ruled Out ? Change > / = 7 ng/L ?Continue Evaluation/Order ? 3rd sample to be tested Female result: ? Change < 7 ng/L ? Continue Evaluation/Order Male result: ?3rd sample to be tested Female result: ?Change > / = 7 ng/L ? Likely acute myocardial injury Male result: ? Female result: ?> 34 ? Change < 20 % ? Abnormal troponin, likely Male result: ?> 54 ? chronic elevation ? (i.e. Dialysis, myopathy) Female result: ?> 34 ? Change > / = 20% ? Likely acute myocardial injury Male result: ?> 54 He Sapp MD LAB BLOOD ORDERABLES [facility] [address] [place] [address] * (ABNORMAL) POC Glucose Level (06/25/2024 5:44 PM EST) Glucose POC 278(H) 74 - 100 mg/dL 06/25/2024 5:45 PM EST [facility] POC WAIVED TESTING(CLIA# [id number]) POC INSPECTOR BOILER ALEM NEAL 06/25/2024 5:45 PM EST E[facility] POC WAIVED TESTING(CLIA# [id number]) Blood ENTIRE ANTECUBITAL VEIN / Unknown 06/25/2024 5:44 PM EST 06/25/2024 5:45 PM EST Point Of Care Provider LAB POINT OF CARE TEST DOCKED DEVICE UNSOLICITED RESULTS [facility] POC WAIVED TESTING(CLIA#[id number]) [address] [place] [address] * (ABNORMAL) POC Glucose Level (06/25/2024 4:57 PM EST) [facility] Glucose POC 188(H) 74 - 100 mg/dL 06/25/2024 4:58 PM EST EH POC WAIVED TESTING(CLIA# [id number]) POC INSPECTOR BOILER ALEM NEAL 06/25/2024 4:58 PM EST EH POC WAIVED TESTING(CLIA# [id number]) Blood ENTIRE ANTECUBITAL VEIN / Unknown 06/25/2024 4:57 PM EST 06/25/2024 4:58 PM EST Point Of Care Provider LAB POINT OF CARE TEST DOCKED DEVICE UNSOLICITED RESULTS Performing Organization Address City/[facility]/ZIP Co de Phone Number EH POC WAIVED TESTING(CLIA#[id number]) [address] [place] [address] * Troponin, HS (06/25/2024 4:22 PM EST) [facility] Troponin I HS 3 <=34 ng/L LAB SEROLOGY ATELLICA METHOD 06/25/2024 4:50 PM EST [facility] Blood ENTIRE ANTECUBITAL VEIN / Unknown Venipuncture / Unknown 06/25/2024 4:22 PM EST 06/25/2024 4:26 PM EST [facility] - 06/25/2024 4:50 PM EST Result Clinical Decision < 3 ng/L ? Negative, Rule Out ? (if > 3 hrs of chest pain ONLY, ? if < 3 hrs continue to 2 hr specimen) > / = 120 ng/L Positive, likely Acute Myocardial injury He Sapp MD LAB BLOOD ORDERABLES [facility] [address] [place] [address] * (ABNORMAL) Complete Blood Count with Auto Differential (06/25/2024 4:22 PM EST) WBC 4.88 4.23 - 10.80 10*3/uL 06/25/2024 4:30 PM [facility] RBC 3.58(L) 4.20 - 5.40 10*6/uL 06/25/2024 4:30 PM [facility] HGB 9.7(L) 12.0 - 16.0 g/dL 06/25/2024 4:30 PM [facility] HCT 28.8(L) 35.0 - 45.0 % 06/25/2024 4:30 PM [facility] MCV 80.4 80.0 - 96.0 fL 06/25/2024 4:30 PM [facility] MCH 27.1 27.0 - 32.0 pg 06/25/2024 4:30 PM [facility] MCHC 33.7 32.0 - 37.0 g/dL 06/25/2024 4:30 PM [facility] RDW 13.0 11.5 - 14.5 % 06/25/2024 4:30 PM [facility] Platelet 309 150 - 400 10*3/uL 06/25/2024 4:30 PM [facility] MPV 10.2 9.7 - 13.2 fL 06/25/2024 4:30 PM [facility] Neutrophils % 74.4 % 06/25/2024 4:30 PM [facility] Lymphocytes % 20.5 % 06/25/2024 4:30 PM [facility] Monocytes % 3.5 % 06/25/2024 4:30 PM [facility] Eos % 0.6 % 06/25/2024 4:30 PM [facility] Basophils % 0.6 % 06/25/2024 4:30 PM [facility] Immature Granulocytes % 0.40 % 06/25/2024 4:30 PM [facility] Abs Neutrophils 3.63 1.40 - 7.70 10*3/uL 06/25/2024 4:30 PM [facility] Abs Lymphocytes 1.00(L) 1.10 - 4.00 10*3/uL 06/25/2024 4:30 PM [facility] Abs Monocytes 0.17 0.10 - 1.10 10*3/uL 06/25/2024 4:30 PM [facility] Abs Eosinophils 0.03 0.00 - 0.70 10*3/uL 06/25/2024 4:30 PM [facility] Abs Basophils 0.03 0.00 - 0.20 10*3/uL 06/25/2024 4:30 PM [facility] Abs Immature Granulocytes 0.02 0.00 - 0.03 10*3/uL 06/25/2024 4:30 PM [facility] Blood ENTIRE ANTECUBITAL VEIN / Unknown Venipuncture / Unknown 06/25/2024 4:22 PM EST 06/25/2024 4:26 PM EST He Sapp MD LAB BLOOD ORDERABLES [facility] [address] [place] [address] * (ABNORMAL) Comprehensive Metabolic Panel (06/25/2024 4:22 PM EST) Sodium 141 136 - 145 mmol/L LAB SEROLOGY ATELLICA METHOD 06/25/2024 4:50 PM [facility] Potassium 4.5 3.5 - 5.1 mmol/L LAB SEROLOGY ATELLICA METHOD 06/25/2024 4:50 PM [facility] Chloride 107 98 - 107 mmol/L LAB SEROLOGY ATELLICA METHOD 06/25/2024 4:50 PM [facility] Carbon Dioxide 28 20 - 31 mmol/L LAB SEROLOGY ATELLICA METHOD 06/25/2024 4:50 PM [facility] Anion Gap 6 5 - 15 mmol/L LAB SEROLOGY ATELLICA METHOD 06/25/2024 4:50 PM [facility] Glucose 136(H) 74 - 100 mg/dL LAB SEROLOGY ATELLICA METHOD 06/25/2024 4:50 PM [facility] BUN 28(H) 9 - 23 mg/dL LAB SEROLOGY ATELLICA METHOD 06/25/2024 4:50 PM [facility] Creatinine 1.10(H) 0.55 - 1.02 mg/dL LAB SEROLOGY ATELLICA METHOD 06/25/2024 4:50 PM [facility] BUN/Creatinine Ratio 25.45 LAB SEROLOGY ATELLICA METHOD 06/25/2024 4:50 PM [facility] Calcium 9.7 8.3 - 10.6 mg/dL LAB SEROLOGY ATELLICA METHOD 06/25/2024 4:50 PM [facility] Protein, Total 7.5 5.7 - 8.2 g/dL LAB SEROLOGY ATELLICA METHOD 06/25/2024 4:50 PM [facility] Albumin 4.3 3.2 - 4.8 g/dL LAB SEROLOGY ATELLICA METHOD 06/25/2024 4:50 PM [facility] AST 53(H) <=34 U/L LAB SEROLOGY ATELLICA METHOD 06/25/2024 4:50 PM [facility] ALT 41 10 - 49 U/L LAB SEROLOGY ATELLICA METHOD 06/25/2024 4:50 PM [facility] ALK Phos 127(H) 46 - 116 U/L LAB SEROLOGY ATELLICA METHOD 06/25/2024 4:50 PM [facility] Bilirubin, Total 0.3 0.3 - 1.2 mg/dL LAB SEROLOGY ATELLICA METHOD 06/25/2024 4:50 PM [facility] Globulin 3.2 g/dL LAB SEROLOGY ATELLICA METHOD 06/25/2024 4:50 PM [facility] Albumin Globulin Ratio 1.34 06/25/2024 4:50 PM [facility] eGFR 66 >=60 mL/min/1. 73m*2 LAB SEROLOGY ATELLICA METHOD 06/25/2024 4:50 PM [facility] Blood ENTIRE ANTECUBITAL VEIN / Unknown Venipuncture / Unknown 06/25/2024 4:22 PM EST 06/25/2024 4:26 PM EST He Sapp MD LAB BLOOD ORDERABLES Performing Organization Address [facility] Co de Phone Number [facility] [address] [place] [address] * Lactic Acid with Reflex 3 hours from original COLLECTION (if >2) (06/25/2024 4:22 PM EST) Lactic Acid 1.1 0.5 - 2.0 mmol/L LAB SEROLOGY ATELLICA METHOD 06/25/2024 4:48 PM [facility] Blood ENTIRE ANTECUBITAL VEIN / Unknown Venipuncture / Unknown 06/25/2024 4:22 PM EST 06/25/2024 4:27 PM EST He Sapp MD LAB BLOOD ORDERABLES Performing Organization Address City/[facility] Co de Phone Number [facility] [address] [place] [address] * Blood Culture (06/25/2024 4:22 PM EST) Blood Culture No Growth at 120 Hours. 06/30/2024 5:01 PM [facility] Blood ENTIRE ANTECUBITAL VEIN / Unknown Venipuncture / Unknown 06/25/2024 4:22 PM EST 06/25/2024 4:26 PM EST Narrative [facility] - 06/30/2024 5:01 PM EST Culture results may be compromised by the limited volume of specimen received. Pediatric bottle only received. He Sapp MD LAB MICROBIOLOGY - G ENERAL ORDERABLES [facility] [address] [place] [address] * HCG, Qualitative, Urine (06/25/2024 4:04 PM EST) Pathologist [facility] HCG, Urine Screen Negative Negative 06/25/2024 4:24 PM EST [facility] Urine URINE SPECIMEN / Unknown Non-Blood Collection / Unknown 06/25/2024 4:04 PM EST 06/25/2024 4:10 PM EST Physician E/R Staff LAB URINE ORDERAB LES Performing Organization Address City/[facility]/ZIP Co de Phone Number [facility] [address] [place] [address] * Respiratory Panel 2 [employer] NAAT (06/25/2024 4:04 PM EST) [facility] Adenovirus Not Detected Not Detected 06/25/2024 5:05 PM [facility] Coronavirus 229E Not Detected Not Detected 06/25/2024 5:05 PM [facility] Coronavirus HKU1 Not Detected Not Detected 06/25/2024 5:05 PM [facility] Coronavirus NL63 Not Detected Not Detected 06/25/2024 5:05 PM [facility] Coronavirus OC43 Not Detected Not Detected 06/25/2024 5:05 PM [facility] Severe Acute Respiratory Syndrome Coronavirus 2 (SARS-CoV-2) Not Detected Not Detected 06/25/2024 5:05 PM [facility] Comment:Negative results do not preclude SARS-CoV-2 infection and should not be used as the sole basis for treatment or other patient management decisions. Negative results must be combined with clinical observations, patient history, and epidemiological information. The [employer] RP2.1 Respiratory panel has been granted FDA [place] marketing authorization for SARS-CoV-2 detection. Human Metapneumovirus Not Detected Not Detected 06/25/2024 5:05 PM [facility] Human Rhinovirus/Enterov irus Not Detected Not Detected 06/25/2024 5:05 PM [facility] Influenza A Not Detected Not Detected 06/25/2024 5:05 PM [facility] Influenza A/H1 06/25/2024 5:05 PM [facility] Influenza A/2009-H1 06/25/2024 5:05 PM [facility] Influenza B Not Detected Not Detected 06/25/2024 5:05 PM [facility] Parainfluenza Virus 1 Not Detected Not Detected 06/25/2024 5:05 PM [facility] Parainfluenza Virus 2 Not Detected Not Detected 06/25/2024 5:05 PM [facility] Parainfluenza Virus 3 Not Detected Not Detected 06/25/2024 5:05 PM [facility] Parainfluenza Virus 4 Not Detected Not Detected 06/25/2024 5:05 PM [facility] Respiratory Syncytial Virus Not Detected Not Detected 06/25/2024 5:05 PM [facility] Bordetella parapertussis Not Detected Not Detected 06/25/2024 5:05 PM [facility] Bordetella pertussis Not Detected Not Detected 06/25/2024 5:05 PM [facility] Chlamydia (Chlamydophila) pneumoniae Not Detected Not Detected 06/25/2024 5:05 PM [facility] Mycoplasma pneumoniae Not Detected Not Detected 06/25/2024 5:05 PM [facility] Influenza A/H3 06/25/2024 5:05 PM [facility] Nasopharyngeal Swab NASOPHARYNGEAL STRUCTURE / Unknown Swab / Unknown 06/25/2024 4:04 PM EST 06/25/2024 4:09 PM EST He Sapp MD LAB MICROBIOLOGY - G ENERAL ORDERABLES [facility] [address] [place] [id number] * (ABNORMAL) Urinalysis, Microscopy and Culture if Indicated (06/25/2024 4:03 PM EST) Color, Urine Yellow Colorless, Yellow, Straw, Dolly, Light Yellow, Dark-Yellow 06/25/2024 4:28 PM [facility] Clarity, Urine Cloudy(A) Clear 06/25/2024 4:28 PM [facility] Glucose, Urine Normal Normal mg/dL 06/25/2024 4:28 PM [facility] Bilirubin, Urine Negative Negative mg/dL 06/25/2024 4:28 PM [facility] Ketones, Urine Negative Negative mg/dL 06/25/2024 4:28 PM [facility] Specific [place], Urine 1.012(L) 1.015 - 1.025 06/25/2024 4:28 PM [facility] Blood, Urine 0.03(A) Negative mg/dL 06/25/2024 4:28 PM [facility] pH, Urine 6.0 5.0 - 9.0 06/25/2024 4:28 PM [facility] Protein, Urine 20 Negative to 10 mg/dL 06/25/2024 4:28 PM [facility] Urobilinogen, Urine Normal Normal mg/dL 06/25/2024 4:28 PM [facility] Nitrite, Urine Negative Negative 06/25/2024 4:28 PM [facility] Leukocytes, Urine 500(A) Negative WBC/uL 06/25/2024 4:28 PM [facility] Bacteria, Urine 4+(A) None Seen /HPF 06/25/2024 4:28 PM [facility] WBC, Urine 116(H) <=3 /HPF 06/25/2024 4:28 PM [facility] RBC, Urine 4(H) <=2 /HPF 06/25/2024 4:28 PM [facility] Squamous Epithelial, Urine 124(H) <=20 /LPF 06/25/2024 4:28 PM [facility] Hyaline Casts, Urine 15(H) <=1 /LPF 06/25/2024 4:28 PM [facility] Urine URINE SPECIMEN OBTAINED BY CLEAN CATCH PROCEDURE / Unknown Non-Blood Collection / Unknown 06/25/2024 4:03 PM EST 06/25/2024 4:10 PM EST He Sapp MD LAB URINE ORDERABLES Performing Organization Address [facility] Co de Phone Number [facility] [address] [place] [address] * (ABNORMAL) POC Glucose Level (06/25/2024 4:01 PM EST) Glucose POC 129(H) 74 - 100 mg/dL 06/25/2024 4:05 PM EST [facility] POC WAIVED TESTING(CLIA# [id number]) POC INSPECTOR BOILER SAULO MOSCOSO L 06/25/2024 4:05 PM EST E[facility] POC WAIVED TESTING(CLIA# [id number]) Blood ENTIRE ANTECUBITAL VEIN / Unknown 06/25/2024 4:01 PM EST 06/25/2024 4:05 PM EST Point Of Care Provider LAB POINT OF CARE TEST DOCKED DEVICE UNSOLICITED RESULTS Performing Organization Address [facility] de Phone Number POC WAIVED TESTING(CLIA#[id number]) [address] [place] [address] * Electrocardiogram-ECG/EKG-(Hospital or Cardiac Testing Dept only) (06/25/2024 3:20 PM EST) Ventricular Rate 90 BPM CARDIOLOGY MUSE Atrial Rate 90 BPM CARDIOLO GY MUSE P-R Interval 132 ms CARDIOL OGY MUSE QRS Duration 72 ms CARDIOL OGY MUSE Q-T Interval 388 ms CARDIOL OGY MUSE Q2C Calculation(Be zet) 474 ms CARDIOLOGY MUSE P Maynard 63 degrees CARDIOLOGY MUSE R [place]nard 58 degrees CARDIOLOGY MUSE T [place]nard 63 degrees CARDIOLOGY MUSE Diagnosis Line Normal sinus rhythm Septal infarct , age undetermined Abnormal ECG When compared with ECG of 04-MAR-2024 12:43, No significant change was found CARDIOLOGY MUSE 06/25/2024 3:20 PM EST 06/25/2024 4:26 PM EST He Sapp MD EKG ORDERABLES Performing Organization Address [facility] Co de Phone Number CARDIOLOGY MUSE [address] [place], [place] * (ABNORMAL) POC Glucose Level (06/25/2024 2:47 PM EST) Glucose POC 201(H) 74 - 100 mg/dL 06/25/2024 2:58 PM EST E[facility] POC WAIVED TESTING(CLIA# [id number]) POC INSPECTOR BOILER SAULO MOSCOSO L 06/25/2024 2:58 PM EST E[facility] POC WAIVED TESTING(CLIA# [id number]) Blood ENTIRE ANTECUBITAL VEIN / Unknown 06/25/2024 2:47 PM EST 06/25/2024 2:58 PM EST Point Of Care Provider LAB POINT OF CARE TEST DOCKED DEVICE UNSOLICITED RESULTS EH POC WAIVED TESTING(CLIA#[id number]) [address] [place], [place] * (ABNORMAL) POC Glucose Level (06/25/2024 2:16 PM EST) Glucose POC 38(LL) 74 - 100 mg/dL 06/25/2024 2:17 PM EST E[facility] POC WAIVED TESTING(CLIA# [id number]) Comment:RN NOTIFIED POC INSPECTOR BOILER SAULO MOSCOSO L 06/25/2024 2:17 PM EST EH POC WAIVED TESTING(CLIA# [id number]) Blood ENTIRE ANTECUBITAL VEIN / Unknown 06/25/2024 2:16 PM EST 06/25/2024 2:17 PM EST Point Of Care Provider LAB POINT OF CARE TEST DOCKED DEVICE UNSOLICITED RESULTS EH POC WAIVED TESTING(CLIA#[id number]) [address] [place], [place] * POC Glucose Level (06/25/2024 1:32 PM EST) Glucose POC 88 74 - 100 mg/dL 06/25/2024 1:34 PM EST E[facility] POC WAIVED TESTING(CLIA# [id number]) POC INSPECTOR BOILER ALINE IBANEZ 06/25/2024 1:34 PM EST E[facility] POC WAIVED TESTING(CLIA# [id number]) Blood ENTIRE ANTECUBITAL VEIN / Unknown 06/25/2024 1:32 PM EST 06/25/2024 1:34 PM EST Point Of Care Provider LAB POINT OF CARE TEST DOCKED DEVICE UNSOLICITED RESULTS Performing Organization Address [facility] de Phone Number POC WAIVED TESTING(CLIA#[id number]) [address] [place] [address] * (ABNORMAL) POC Glucose Level (06/25/2024 12:57 PM EST) [facility] Glucose POC 53(L) 74 - 100 mg/dL 06/25/2024 1:03 PM EST EH POC WAIVED TESTING(CLIA# [id number]) POC INSPECTOR BOILER SAULO Shanks 06/25/2024 1:03 PM EST EH POC WAIVED TESTING(CLIA# [id number]) Blood ENTIRE ANTECUBITAL VEIN / Unknown 06/25/2024 12:57 PM EST 06/25/2024 1:03 PM EST Point Of Care Provider LAB POINT OF CARE TEST DOCKED DEVICE UNSOLICITED RESULTS Performing Organization Address [facility] de Phone Number POC WAIVED TESTING(CLIA#[id number]) [address] [place] [address] documented in this encounter Visit Diagnoses Diagnosis Hypoglycemia- Primary Hypoglycemia, unspecified Hypoglycemia Hypoglycemia, unspecified documented in this encounter Admitting Diagnoses Diagnosis Hypoglycemia Hypoglycemia, unspecified documented in this encounter Administered Medications Inactive Administered Medications - up to 3 most recent administrations Medication Order MAR Action Action Date Dose Rate Site amitriptyline (ELAVIL) tablet 25 mg 25 mg, Oral, AT BEDTIME, First dose on Sat06/25/24 at 2300, Until Discontinued Given 06/25/2024 10:31 PM EST 25 mg amoxicillin-clavulanate (AUGMENTIN) 875-125 MG tablet 1 Tablet 1 Tablet, Oral, EVERY 12 HOURS (Scheduled), First dose on Sat06/26/24 at 2100, Last dose on Sat06/30/24 at 0900 aspirin chew tablet 81 mg 81 mg, Chew, DAILY, First dose on Sat06/26/24 at 0900, Until Discontinued Given 06/26/2024 9:36 AM EST 81 mg atorvastatin (LIPITOR) tablet 40 mg 40 mg, Oral, AT BEDTIME, First dose on Sat06/25/24 at 2300, Until Discontinued Given 06/25/2024 10:31 PM EST 40 mg azithromycin (ZITHROMAX) 500 mg in sodium chloride 0.9% 250 mL piggyback 500 mg, Intravenous, ONCE, On Sat06/25/24 at 2014 [facility] 06/25/2024 9:13 PM EST 500 mg 250 mL/ hr cefTRIAXone (ROCEPHIN) 1 g in dextrose 5 % 50 mL piggyback 1 g, Intravenous, ONCE, On Sat06/25/24 at 2014 [facility] 06/25/2024 8:32 PM EST 1 g 100 mL/hr dextrose (D50) solution 25 g 25 g (50 mL), Intravenous, PRN, hypoglycemia, for patients unconscious, uncooperative, or unable to tolerate PO, Starting on Sat06/25/24 at 1746, Until Sat06/26/24 at 2000 dextrose 10% bolus 250 mL 250 mL, Intravenous, ONCE, On Sat06/25/24 at 1440 [facility] 06/25/2024 2:32 PM EST 250 mL dextrose 5 % and 0.9% NaCl infusion Intravenous, CONTINUOUS, at 75 mL/hr, Starting on Sat06/25/24 at 1615 [facility] 06/25/2024 5:15 PM EST 75 mL/hr enoxaparin sodium (LOVENOX) injection 40 mg 40 mg, Subcutaneous, DAILY, First dose on Sat06/26/24 at 0900, Until Discontinued Given 06/26/2024 9:37 AM EST 40 mg glucose chew tab 16-32 g 16-32 g, Oral, PRN, hypoglycemia, Starting on Sat06/25/24 at 1746, Until Sat06/26/24 at 2000 insulin glargine (LANTUS) pen 10 Units 10 Units, Subcutaneous, ONCE, On Sat06/25/24 at 2115 Given 06/25/2024 9:12 PM EST 10 Units insulin lispro (HUMALOG/ADMELOG) injection 0-15 Units 0-15 Units, Subcutaneous, 3 TIMES A DAY, First dose on Sat06/25/24 at 1800, Until Discontinued Given 06/26/2024 11:47 AM EST 3 Units Given 06/26/2024 6:27 AM EST 6 Units Given 06/25/2024 7:06 PM EST 12 Units insulin lispro (HUMALOG/ADMELOG) injection 0-15 Units 0-15 Units, Subcutaneous, 3 TIMES A DAY WITH MEALS, First dose on Sat06/26/24 at 1700, Until Discontinued insulin lispro (HUMALOG/ADMELOG) injection 0-5 Units 0-5 Units, Subcutaneous, AT BEDTIME, First dose on Sat06/26/24 at 2100, Until Discontinued lisinopril (PRINIVIL) tablet 20 mg 20 mg, Oral, EVERY MORNING, First dose on Sat06/26/24 at 0900, Until Discontinued Given 06/26/2024 9:37 AM EST 20 mg magnesium sulfate 2 gm/50 mL 2 g, Intravenous, ONCE, On Sat06/26/24 at 1100 New Bag 06/26/2024 11:47 AM EST 2 g 25 mL/hr metoprolol succinate (TOPROL XL) tablet 100 mg 100 mg, Oral, EVERY EVENING, First dose on Sat06/25/24 at 2300, Until Discontinued Given 06/25/2024 10:31 PM EST 100 mg potassium & sodium phosphates (NEUTRA-PHOS) 280-160-250 MG packet 1 Packet 1 Packet, Oral, 4 TIMES A DAY, First dose on Sat06/26/24 at 1200, Last dose on Sat06/27/24 at 0900 Given 06/26/2024 5:49 PM EST 1 Packet Given 06/26/2024 11:57 AM EST 1 Packet potassium chloride SA (KLOR-CON M) tablet 40 mEq 40 mEq, Oral, ONCE, On Sat06/26/24 at 1100 Given 06/26/2024 11:47 AM EST 40 mEq proCHLORperazine (COMPAZINE) injection 5 mg 5 mg, Intravenous, EVERY 4 HOURS PRN, Nausea or Vomiting 2nd line, Starting on Sat06/25/24 at 2204, Until Sat06/26/24 at 2000 proMETHazine (PHENERGAN) rectal suppository 25 mg 25 mg, Rectal, EVERY 6 HOURS PRN, Nausea or Vomiting 2nd line, Starting on Xochitl 06/25/24 at 2204, Until Sat06/26/24 at 2000 proMETHazine (PHENERGAN) tablet 25 mg 25 mg, Oral, EVERY 6 HOURS PRN, Nausea or Vomiting 2nd line, Starting on Xochitl 06/25/24 at 2204, Until Sat06/26/24 at 2000 sodium chloride 0.9 % (NS) bolus 1,000 mL 1,000 mL, Intravenous, ONCE, On Sat06/25/24 at 1755 New Bag 06/25/2024 5:51 PM EST 1,000 mL sodium chloride 0.9 % (NS) bolus 1,000 mL 1,000 mL, Intravenous, ONCE, On Sat06/25/24 at 1920 New Bag 06/25/2024 7:33 PM EST 1,000 mL sodium chloride 0.9 % flush 10 mL 10 mL, Intravenous, TWICE A DAY, First dose on Sat06/25/24 at 2300, Until Discontinued Given 06/26/2024 9:37 AM EST 10 mL Given 06/25/2024 10:31 PM EST 10 mL documented in this encounter Active and Recently Administered Medications Times are shown in EST. Scheduled Medication Order 06/24/2024 06/25/2024 06/26/2024 amitriptyline (ELAVIL) tablet 25 mg 25 mg, Oral, AT BEDTIME, First dose on Sat06/25/24 at 2300, Until Discontinued 2230 (Given - Provider: Kim Porter RN) amoxicillin-clavulanate (AUGMENTIN) 875-125 MG tablet 1 Tablet 1 Tablet, Oral, EVERY 12 HOURS (Scheduled), First dose on Sat06/26/24 at 2100, Last dose on Sat06/30/24 at 0900 aspirin chew tablet 81 mg 81 mg, Chew, DAILY, First dose on Sat06/26/24 at 0900, Until Discontinued 935 (Given - Provid er: Rk Kaminski RN) atorvastatin (LIPITOR) tablet 40 mg 40 mg, Oral, AT BEDTIME, First dose on Sat06/25/24 at 2300, Until Discontinued 2230 (Given - Provider: Kim Porter RN) azithromycin (ZITHROMAX) 500 mg in sodium chloride 0.9% 250 mL piggyback (COMPLETED) 500 mg, Intravenous, ONCE, On Sat06/25/24 at 2014 2112 (New Bag - Provider: Zayra Epperson, MACIEL)2212 (Stopped - Provider: Kim Porter, RN) cefTRIAXone (ROCEPHIN) 1 g in dextrose 5 % 50 mL piggyback (COMPLETED) 1 g, Intravenous, ONCE, On Sat06/25/24 at 2014 2031 (New Bag - Provider: Zayra Epperson, MACIEL)210 (Stopped - Provider: Ajith Dowling RN) dextrose 10% bolus 250 mL (COMPLETED) 250 mL, Intravenous, ONCE, On Sat06/25/24 at 1440 1432 (New Bag - Provider: Cristal Kenny RN)1458 (Stopped - Provider: Cristal Kenny RN) enoxaparin sodium (LOVENOX) injection 40 mg 40 mg, Subcutaneous, DAILY, First dose on Sat06/26/24 at 0900, Until Discontinued 0937 (Given - Provid er: Rk Kaminski RN) ferrous sulfate (IRON) tablet 325 mg 325 mg, Oral, EVERY OTHER DAY, First dose on Sat06/27/24 at 0900, Until Discontinued insulin glargine (LANTUS) pen 10 Units (COMPLETED) 10 Units, Subcutaneous, ONCE, On Sat06/25/24 at 2115 2112 (Given - Provider: Zayra Epperson RN) insulin lispro (HUMALOG/ADMELOG) injection 0-15 Units (CANCELED) 0-15 Units, Subcutaneous, 3 TIMES A DAY, First dose on Sat06/25/24 at 1800, Until Discontinued 1906 (Given - Provider: Cristal Kenny RN) 0627 (Given - Provider: Kim Porter, RN)1147 (Given - Provider: Rk Kaminski RN) insulin lispro (HUMALOG/ADMELOG) injection 0-15 Units 0-15 Units, Subcutaneous, 3 TIMES A DAY WITH MEALS, First dose on Sat06/26/24 at 1700, Until Discontinued 1700 (Due) insulin lispro (HUMALOG/ADMELOG) injection 0-5 Units 0-5 Units, Subcutaneous, AT BEDTIME, First dose on Sat06/26/24 at 2100, Until Discontinued lisinopril (PRINIVIL) tablet 20 mg 20 mg, Oral, EVERY MORNING, First dose on Sat06/26/24 at 0900, Until Discontinued 936 (Given - Provid er: Rk Kaminski RN) magnesium sulfate 2 gm/50 mL (COMPLETED) 2 g, Intravenous, ONCE, On Sat06/26/24 at 1100 1147 (New Bag - Provider: Rk Kaminski RN)1347 (Stopped - Provider: Rk Kaminski RN) metoprolol succinate (TOPROL XL) tablet 100 mg 100 mg, Oral, EVERY EVENING, First dose on Sat06/25/24 at 2300, Until Discontinued 2230 (Given - Provider: Kim Porter RN) potassium & sodium phosphates (NEUTRA-PHOS) 280-160-250 MG packet 1 Packet 1 Packet, Oral, 4 TIMES A DAY, First dose on Sat06/26/24 at 1200, Last dose on Sat06/27/24 at 0900 1157 (Given - Provid er: Rk Kaminski RN)1749 (Given - Provider: Rk Kaminski RN) potassium chloride SA (KLOR-CON M) tablet 40 mEq (COMPLETED) 40 mEq, Oral, ONCE, On Sat06/26/24 at 1100 1147 (Given - Provid er: Rk Kaminski RN) sodium chloride 0.9 % (NS) bolus 1,000 mL (COMPLETED) 1,000 mL, Intravenous, ONCE, On Sat06/25/24 at 1755 1751 (New Bag - Provider: Cristal Kenny RN) sodium chloride 0.9 % (NS) bolus 1,000 mL (COMPLETED) 1,000 mL, Intravenous, ONCE, On Sat06/25/24 at 1920 1933 (New Bag - Provider: Ajith Dowling RN) sodium chloride 0.9 % flush 10 mL 10 mL, Intravenous, TWICE A DAY, First dose on Sat06/25/24 at 2300, Until Discontinued 2230 (Given - Provider: Kim Porter RN) 09 (Given - Provider: Rk Kaminski RN) Continuous Medication Order 06/24/2024 06/25/2024 06/26/2024 dextrose 5 % and 0.9% NaCl infusion (CANCELED) Intravenous, CONTINUOUS, at 75 mL/hr, Starting on Xochitl 06/25/24 at 1615 1715 (New Bag - Provider: Cristal Kenny RN)1746 (Stopped - Provider: Cristal Kenny RN) PRN Medication Order 06/24/2024 06/25/2024 06/26/2024 acetaminophen (TYLENOL) tablet 500 mg 500 mg, Oral, EVERY 6 HOURS PRN, Mild Pain (Pain Score 1-3), Starting on Xochitl 06/25/24 at 2204, Until Sat06/26/24 at 1999 dextrose (D50) solution 25 g 25 g (50 mL), Intravenous, PRN, hypoglycemia, for patients unconscious, uncooperative, or unable to tolerate PO, Starting on Xochitl 06/25/24 at 1746, Until Sat06/26/24 at 1999 glucose chew tab 16-32 g 16-32 g, Oral, PRN, hypoglycemia, Starting on Xochitl 06/25/24 at 1746, Until Sat06/26/24 at 1999 proCHLORperazine (COMPAZINE) injection 5 mg(Linked Group 1) 5 mg, Intravenous, EVERY 4 HOURS PRN, Nausea or Vomiting 2nd line, Starting on Xochitl 06/25/24 at 2204, Until Sat06/26/24 at 2000 proMETHazine (PHENERGAN) rectal suppository 25 mg(Linked Group 1) 25 mg, Rectal, EVERY 6 HOURS PRN, Nausea or Vomiting 2nd line, Starting on Xochitl 06/25/24 at 2204, Until Sat06/26/24 at 2000 proMETHazine (PHENERGAN) tablet 25 mg(Linked Group 1) 25 mg, Oral, EVERY 6 HOURS PRN, Nausea or Vomiting 2nd line, Starting on Xochitl 06/25/24 at 2204, Until Sat06/26/24 at 2000 Linked Groups Order Group 1: proMETHazine (PHENERGAN) tablet 25 mgJump to med 25 mg, Oral, EVERY 6 HOURS PRN, Nausea or Vomiting 2nd line, Starting on Xochitl 06/25/24 at 2204, Until Sat06/26/24 at 2000 Or proMETHazine (PHENERGAN) rectal suppository 25 mgJump to med 25 mg, Rectal, EVERY 6 HOURS PRN, Nausea or Vomiting 2nd line, Starting on Xochitl 06/25/24 at 2204, Until Sat06/26/24 at 1999 Or proCHLORperazine (COMPAZINE) injection 5 mgJump to med 5 mg, Intravenous, EVERY 4 HOURS PRN, Nausea or Vomiting 2nd line, Starting on Xochitl 06/25/24 at 2204, Until Sat06/26/24 at 2000 documented in this encounter Additional Health Concerns Infection Onset Date Last Indicated Resolved Time Respiratory Rule-Out 06/25/2024 06/25/2024 024 5:05 PM EST documented as of this encounter Care Teams Food Counter Worker Relationship Specialty Start Date End Date Celsa Preston MD [address] [id number] PCP - General Internal Medicine 12/10/17 documented as of this encounter
--- OUTSIDE RECORDS SUMMARY | 2024-07-26 05:44 | XMS_ITS | Clinical Summary ---
Author Organization [facility] Keri navarrete Address [address] [place] [address] Care Team Providers Care Elementary Education Tutor Name Role Phone Unavailable Primary Care Provider Unavailabl e Social History Tobacco Use Types Packs/Day Years Used Date Smoking Tobacco: Never Assessed Comments Unknown Sex and Gender Information Value Date Recorded Sex Assigned at Female 08/16/2023 12:15 AM EST Legal Sex Female 12:15 AM EST Gender Identity Female 08/16/2023 12:15 AM EST Sexual Orientation Not on file Plan of Treatment Health Maintenance Due Date Last Done Comments Blood Pressure 1985 Hemoglobin A1c 1985 Lipid Panel 1985 Urine Microalbumin 1985 Depression Screening 1989 Hepatitis C Screening 2003 DTaP,Tdap,and Td Vaccines (1 - Tdap) 2004 Pap Smear 2006 Cervical Cancer Screening 2015 HPV/Cotest 2015 COVID-19 Vaccine ( - 2023-2 5 season) 2024 Influenza Vaccine (#1) 2024 Meningococcal Vaccines Aged Out No lo nger eligible based on patient's age to complete this topic Pneumococcal Vaccine: Pediat rics (0 to 5 Years) and At-Risk Patients (6 to 64 Years) Aged Out No longer eligible b ased on patient's age to complete this topic
--- OUTSIDE RECORDS SUMMARY | 2024-07-26 05:44 | XMS_ITS | Encounter Summary ---
Author Organization [facility]: [facility] Address [facility] [phone] [place] [address] Care Team Providers Care Manager Stone Name Role Phone Celsa Preston MD Primary Care Provider [phone] Reason for Referral * Specialty Services (Routine) - Closed Specialty Diagnoses / Procedures Referred By Chao vargas Referred To Contact Endoscopy Diagnoses History of esophagitis Procedures EGD Upper GI Endo Kera Dewitt MD [facility] [address] [place] [id number] [place] [address] Referral ID Status Reason Start Date Expiration Date V isits Requested Visits Authorized [id number] Closed Consult and Treat 06/28/2020 12/25/2020 1 1 Encounter Details Date Type Department Care Team (Latest Contact Info) Description 06/28/2020 Transcribe Orders Endoscopy/[place] [address] Kera Dewitt MD [address] [place] [id number] History of esophagitis (Primary Dx) Social History Tobacco Use Types Packs/Day Years Used Date Smoking Tobacco: Never Cigarettes Qu it: 10/29/2009 Smokeless Tobacco: Never Comments:only smoked passive ly for a couple months Alcohol Use Standard Drinks/Week Comments No 0 (1 standard drink = 0.6 oz pur e alcohol) rarely Sex and Gender Information Value Date Recorded Sex Assigned at Female 12/25/2023 2:20 PM EDT Gender Identity Female 12/25/2023 2:20 PM EDT Sexual Orientation Bisexual 12/25/2023 2: 20 PM EDT COVID-19 Exposure Response Date Recorded In the last month, have you been in contact with someone who was confirmed or suspected to have Coronavirus / COVID-19? No / Unsure 06/26/2020 8:32 PM EST documented as of this encounter Functional Status Functional Status Response Date of Assess ment Is this person deaf or does he/she have serious difficulty hearing? No 06/28/2020 Is this person blind or does he/she have serious difficulty seeing even when wearing glasses? No 0 Does this person have seriou s difficulty walking or climbing stairs? No 06/28/2020 Does this person have seriou s difficulty dressing or bathing? No 06/28/2020 Because of a physical, menta l, or emotional condition, does this person have difficulty doing errands alone, such as visiting the doctor's office or shopping? No 06/01 Cognitive Status Response Date of Assessm ent Because of a physical, menta l, or emotional condition, does this person have difficulty concentrating, remembering, or making decisions? No 06/28/2020 documented as of this encounter Plan of Treatment Not on file documented as of this encounter Results * EGD Upper GI Endo (07/13/2020 12:06 PM EST) Anatomical Region Laterality Modality X-Ray Angiograph y Narrative 07/13/2020 10:30 AM EST Kera Dewitt MD ? 07/13/2020 ??6:13 [place], [address] Patient Name: Lynne Brown Date of : 1985 Years of Age: [age] year old ? Endoscopist: ??Kera Dewitt MD Primary care provider: CELSA PRESTON MD ? Date: 07/13/2020 ?? Procedure Note: Outpatient Esophagogastroduodenoscopy (EGD) Indication(s): ?? Nausea and vomiting - cyclic ?? Recent Helicobacter pylori eradication therapy (3rd attempt) - completed prior to June 24, 2020 Post-Procedure Diagnosis: unremarkable EGD to distal duodenum Procedure performed: Upper GI Endoscopy Consent: ??The indications/benefits, risks and alternative(s) for the upper GI endoscopy were discussed with the patient. ??The risks discussed include but are not limited to infection, perforation (<07/1999), missed lesion (<5%), hemorrhage and sedation-related adverse events. ??The patient agreed to proceed with the endoscopic procedure and signed the informed consent form. Time out confirmed. Medications administered: As per Anaesthesia ASA Classification: Class 3 risk for moderate sedation Airway Classification: Mallampati Class 1 Procedure with findings: ?? The patient was brought into the endoscopy suite and was placed in the left lateral decubitus position. ??The patient was placed on continuous monitoring for blood pressure, oxygen, heart rate, and respirations. ??The patient had the medications administered as per the nursing records and the bite block was placed into the mouth. ??When the patient is comfortable, the Olympus diagnostic gastroscope was then placed into the oropharynx and was advanced into the esophagus under direct visualization. ??The endoscope was then advanced through the esophagus into the stomach and duodenum. ?? All areas were carefully evaluated including retroflexion in gastric cardia and fundus. The findings are as follows: Esophagus: ?proximal: unremarkable ?mid: unremarkable ?distal: unremarkable ?squamous-columnar junction: 37 cm from incisors ?top of gastric folds: 37 cm from incisors ?diaphragmatic hiatus: 37 cm from incisors Stomach: ?cardia:unremarkable ?fundus:unremarkable ?corpus:unremarkable - cold biopsy X 4 (as per updated Nancy System) sent for histopathology and microbiology ?incisura angularis: unremarkable - cold biopsy X 2 (as per updated Nancy System) sent for histopathology and microbiology ?antrum:unremarkable - cold biopsy X 4 (as per updated Nancy System) sent for histopathology and microbiology ?pylorus:unremarkable ? Duodenum: ?bulb:unremarkable ?second/third portion: unremarkable Specimens removed and submitted to pathology: gastric antrum and corpus (as well as microbiology) Recommendations: ?? Await gastric histopathology and microbiology ?? Possible non-adherence for Helicobacter pylori eradication therapy. She reports being prescribed 2 medications amoxicillin and medicine beginning with e . I mentioned omeprazole/Prilosec and she said it was not one of the medications prescribed. The electronic medical record reports she was prescribed omeprazole, amoxicillin and levofloxacin. Follow up with [facility] Follow up with primary care provider (PCP) CC: CELSA PRESTON MD [address] [place] [address] Kera Dewitt MD ENDOSCOPY documented in this encounter Visit Diagnoses Diagnosis History of esophagitis- Primary Personal history of other diseases of digestive system History of esophagitis Personal history of other diseases of digestive system documented in this encounter Additional Health Concerns Infection Onset Date Last Indicated Resolved Time COVID-19 Rule-Out 07/13/2020 07/13/2020 07/13/2020 10:45 AM EST Influenza Rule-Out 04/14/2022 04/14/2022 2 5:59 PM EDT RSV Rule-Out 04/14/2022 04/14/2022 04/14/2022 5:59 PM EDT COVID-19 Rule-Out 04/14/2022 04/14/2022 04/14/2022 5:59 PM EDT Influenza Rule-Out 04/23/2023 04/23/2023 3 5:23 AM EDT RSV Rule-Out 04/23/2023 04/23/2023 04/23/2023 5:23 AM EDT COVID-19 Rule-Out 04/23/2023 04/23/2023 04/23/2023 5:23 AM EDT Influenza Rule-Out 06/28/2023 06/28/2023 11:25 AM EST RSV Rule-Out 06/28/2023 06/28/2023 06/28/2023 11:2 5 AM EST COVID-19 Rule-Out 06/28/2023 06/28/2023 06/28/2023 11:25 AM EST Respiratory Rule-Out 06/25/2024 06/25/2024 024 5:05 PM EST Influenza Rule-Out 07/05/2024 07/05/2024 8:09 AM EST RSV Rule-Out 07/05/2024 07/05/2024 07/05/2024 8:09 AM EST COVID-19 Rule-Out 07/05/2024 07/05/2024 07/05/2024 8:09 AM EST documented as of this encounter Care Teams Manager Stone Relationship Specialty Start Date End Date Celsa Preston MD [address] [place] [id number] PCP - General Internal Medicine 12/10/17 documented as of this encounter
--- OUTSIDE RECORDS SUMMARY | 2024-07-26 05:44 | XMS_ITS | Encounter Summary ---
Author Organization [facility]: [facility] & [facility] Address [facility] [phone] [place] [address] Care Team Providers Care Lead Clinical Research Coordinator Name Role Phone Celsa Preston MD Primary Care Provider [phone] Encounter Details Date Type Department Care Team (Late st Contact Info) Description 08/19/[address] [facility] [place] [address] Ricky Huffman MD [address] [place] [id number] Social History Tobacco Use Types Packs/Day Years Used Date Smoking Tobacco: Never Assessed Sex and Gender Information Value Date Recorded Sex Assigned at Female 12/25/2023 2:20 PM EDT Gender Identity Female 12/25/2023 2:20 PM EDT Sexual Orientation Bisexual 12/25/2023 2: 20 PM EDT documented as of this encounter Plan of Treatment Not on file documented as of this encounter Results * CT ABDOMEN/PELVIS W/ CONT (08/23/2008 5:23 PM EST) Anatomical Region Laterality Modality Abdomen, Pelvis Computed Tomogra phy 08/23/2008 5:45 PM EST Impressions 08/23/2008 5:[address] evaluation of the abdomen and pelvis. The study is somewhat limited due to generalized lack of intra-abdominal fat. Narrative 08/23/2008 5:45 PM EST INDICATIONS: Left upper quadrant pain. PRIOR EVALUATIONS: None. TECHNIQUE: ??Following the bolus administration of 100 ml of Isovue-370, transaxial imaging of the abdomen and pelvis was performed. ??Multiplanar coronal and sagittal reformations were obtained at a CT workstation. FINDINGS: LUNG BASES: ??There are no infiltrates or effusions. LIVER: ??. ??focal or diffuse hepatic abnormalities.>] The hepatic and portal venous systems are patent. BILIARY: ??. There is no evidence for cholelithiasis or gall bladder wall thickening. ??There is no evidence for biliary ductal dilatation. PANCREAS: ??Normal in size and attenuation. SPLEEN: Normal. ADRENAL GLANDS: Normal. : Right Kidney: There is a normal enhancement pattern associated with the kidney. ??The kidney appears normal in size and contour without mass. ??There is no evidence for cyst. ??There is no evidence of hydronephrosis. Left Kidney: There is a normal enhancement pattern associated with the kidney. The kidney appears normal in size and contour without mass. ??There is no evidence for cyst. ??There is no evidence of hydronephrosis. Bladder: The bladder is midline. GASTROINTESTINAL: ??There is no evidence of obstruction. ??There is a normal enhancement pattern of the bowel without evidence for inflammation. There is no evidence for free air or free fluid. There is no evidence for an abscess. There is no evidence of a mesenteric mass. ??. BLOOD VESSELS AND SOFT TISSUES: ??There is no evidence of an aneurysm. ??There is no evidence of a deep vein thrombosis. ??The soft tissues are intact. LYMPH NODES: ??There are no enlarged lymph nodes in the abdomen or pelvis. BONES: Negative. OTHER: There is a small 1.3 cm cyst associated with the left ovary. An IUD is noted to be in good position within the uterus. Ricky Huffman MD CT documented in this encounter Visit Diagnoses Not on filedocumented in this encounter Additional Health Concerns Infection Onset Date Last Indicated Resolved Time COVID-19 Rule-Out 03/23/2020 03/23/2020 03/23/2020 2:33 PM EDT COVID-19 Rule-Out 06/27/2020 06/27/2020 06/27/2020 1:45 AM EST COVID-19 Rule-Out 07/13/2020 07/13/2020 07/13/2020 10:45 AM EST Influenza Rule-Out 04/14/2022 04/14/2022 5:59 PM EDT RSV Rule-Out 04/14/2022 04/14/2022 04/14/2022 5:59 PM EDT COVID-19 Rule-Out 04/14/2022 04/14/2022 04/14/2022 5:59 PM EDT Influenza Rule-Out 04/23/2023 04/23/2023 5:23 AM EDT RSV Rule-Out 04/23/2023 04/23/2023 [...] documented as of this encounter Care Teams Lead Clinical Research Coordinator Relationship Specialty Start Date End Date Celsa Preston MD [address] [place] [id number] PCP - General Internal Medicine 12/10/17 documented as of this encounter
--- OUTSIDE RECORDS SUMMARY | 2024-07-26 05:44 | XMS_ITS | Encounter Summary ---
Author Organization [facility]: [facility] & [facility] Address [facility] [phone] [place] [address] Care Team Providers Care Senior Mechanical Engineer Name Role Phone Celsa Preston MD Primary Care Provider [phone] Encounter Details Date Type Department Care Team ([facility] st Contact Info) Description 11/21/2023 Telephone [facility] [address] [place] [phone] Mario Ndiaye MD [address] [place] [id number] Social History Tobacco Use Types Packs/Day Years [...] Unable or Declines to Respond No 07/03/2023 [facility] Utilities Answer Date Recorded In the past 12 months has th e electric, gas, oil, or water company threatened to shut off services in your home? No 07/02/2023 Social Connection and Isolation Panel [NHANES] A nswer Date Recorded In a typical week, how many times do you talk on the phone with family, friends, or neighbors? Patient declined 04/24/2023 How often do you get togethe r with friends or relatives? Patient declined 04/24/2023 How often do you attend samaritan or yazdanism serv ices? Patient declined 04/24/2023 Do you belong to any clubs o r organizations such as samaritan groups, unions, fraternal or athletic groups, or school groups? Patient declined 04/24/2023 How often do you attend meet ings of the clubs or organizations you belong to? Patient declined 04/24/2023 Are you , , di vorced, , never , or living with a partner? Never 04/24/2023 AUDIT-C Answer Date Recorded Q1: How often do you have a drink containing alcohol? Never 04/24/2023 Q2: How many drinks containi ng alcohol do you have on a typical day when you are drinking? Patient does not drink Q3: How often do you have si x or more drinks on one occasion? Never 04/24/2023 Overall Financial Resource Strain (CARDIA) Answe r Date Recorded How hard is it for you to pa y for the very basics like food, housing, medical care, and heating? Hard 04/24/2023 Hunger Vital Sign Answer Date Recorded Within the past 12 months, y ou worried that your food would run out before you got the money to buy more. Never true 07/02/19 24 Within the past 12 months, t he food you bought just didn't last and you didn't have money to get more. Never true 07/02/2023 PRAPARE - Transportation Answer Date Re corded In the past 12 months, has l ack of transportation kept you from medical appointments or from getting medications? Yes 08/2023 In the past 12 months, has l ack of transportation kept you from meetings, work, or from getting things needed for daily living? No 07/02/2023 Housing Stability Vital Sign Answer Omar e Recorded In the last 12 months, was t here a time when you were not able to pay the mortgage or rent on time? No 07/02/2023 In the last 12 months, how many places have you lived? 1 07/02/2023 In the last 12 months, was t here a time when you did not have a steady place to sleep or slept in a detention (including now)? No 07/02/2023 Sex and Gender Information Value Date Recorded [...] No 06/28/2020 documented as of this encounter Miscellaneous Notes * Telephone Encounter - Margot Smith - 11/21/2023 10:53 AM EDT Patient cancelled via [facility] Appt date: 11/22/2023 Time:2:00 11/22/2023 Called patient and rescheduled her appointment on [facility]. Appointment rescheduled to 01/17/2024 at 9:00 on [facility]. documented in this encounter Plan of Treatment Not on [...] documented as of this encounter Care Teams Senior Mechanical Engineer Relationship Specialty Start Date End Date Celsa Preston MD [address] [place] [address] PCP - General Internal Medicine 12/10/17 documented as of this encounter
--- OUTSIDE RECORDS SUMMARY | 2024-07-26 05:44 | XMS_ITS ---
Author Name [facility] Organization Unknown Results Test Name/Text Value Interpretation Date Range Source POCT NOVA-INSTRUMENT NAME M8X Normal [id number] [facility] Glucose BldC Glucomtr-mCnc 256mg/dL Above high normal [id number] 71 - 99 [facility] RDW RBC Auto-Rto 13.9% Normal [id number] 11.5 - 14.5 [facility] PMV Bld Auto 10fL Normal [id number] 9.2 - 12.7 [facility] MCH RBC Qn Auto 26.3pg Normal [id number] 26 - 34 J RBC # Bld Auto 3.72M/cumm Below low normal [id number] 4 - 5.2 [facility] MCHC RBC Auto-mCnc 31.9g/dL Normal [id number] 31 - 37 [facility] WBC nRBC cor # Bld Auto 5.03K/cumm Normal [id number] 4.5 - 11 [facility] Platelet # Bld Auto 333K/cumm Normal [id number] 150 - 3 50 [facility] Hct VFr Bld Auto 30.7% Below low normal [id number] 36 - 46 [facility] MCV RBC Auto 82.5fL Normal [id number] 80 - 100 [facility] Hgb Bld-mCnc 9.8g/dL Below low normal [id number] 12 - 15 [facility] nRBC/100 WBC Bld Manual-Rto 0K/cumm Normal [id number] 0 - 0.01 [facility] Calcium SerPl-mCnc 8.8mg/dL Normal [id number] 8.4 - 10.5 [facility] BUN SerPl-mCnc 10mg/dL Normal [id number] 7 - 22 [facility] Creat SerPl-mCnc 0.8mg/dL Normal [id number] 0.5 - 1.2 [facility] Chloride SerPl-sCnc 100mmol/L Normal [id number] 96 - 10 9 [facility] BUN/Creat SerPl 13 Normal [id number] J GFR/BSA.pred SerPlBld TIS-ODA-QjQIrv 97mL/min/1.73sqm Normal 60 - [facility] CO2 SerPl-sCnc 32mmol/L Above high normal [id number] 21 - 31 [facility] Potassium SerPl-sCnc 3.9mmol/L Normal [id number] 3.5 - 5.1 [facility] Sodium SerPl-sCnc 139mmol/L Normal [id number] 135 - 148 [facility] Glucose SerPl-mCnc 210mg/dL Above high normal [id number] 71 - 99 [facility] Anion Gap SerPl-sCnc 7mmol/L Normal [id number] 7 - 16 [facility] TIBC SerPl-mCnc 261mcg/dL Normal 250 - 450 [facility] Iron Satn SFr SerPl 25% Normal 20 - 55 [facility] Transferrin SerPl-mCnc 209mg/dL Normal 200 - 400 [facility] Iron SerPl-mCnc 66ug/dL Normal 50 - 170 [facility] Ferritin SerPl IA-mCnc 71ng/mL Normal [id number] 13 - 150 [facility] HbA1c MFr Bld HPLC 12.1% Above high normal [facility] Bacteria Ur Cult Multiple organisms present with no predominating uropathogen, suggestive of contamination. No further workup to follow. Please resubmit to the Micro lab for repeat testing if clinically indicated. Normal [facility] Appearance Ur Cloudy Normal [facility] Hgb Ur Ql Strip.auto Moderate Abnormal [id number] - [facility] Glucose Ur Strip.auto-mCnc Negative Normal [id number] - [facility] Prot Ur Ql Strip.auto 3+ Abnormal [id number] - [facility] Bilirub Ur Ql Strip.auto Negative Normal [id number] - [facility] Nitrite Ur Ql Strip.auto Negative Normal [id number] - [facility] Leukocyte esterase Ur Ql Strip.auto Large Abnormal [id number] - [facility] Bacteria #/area UrnS Auto Many Abnormal [id number] - [facility] Ketones Ur Ql Strip.auto Trace Normal [id number] - [facility] Urobilinogen Ur Strip.auto-mCnc 0.2mg/dL Normal [id number] - [facility] Color Ur Yellow Normal [id number] [facility] Sp Gr Ur Refractometry 1.017 Normal [id number] 1.003 - 1.03 [facility] Hyaline Casts #/area UrnS Auto 7/LPF Above high normal [id number] 0 - 3 [facility] pH Ur Strip.auto 6.5 Normal [id number] 4.6 - 8 [facility] WBC # Ur Auto 2114/mcL Above high normal [id number] 0 - 2 7 [facility] WBC #/area UrnS Auto 381/HPF Above high normal [id number] - [facility] RBC #/area UrnS Auto 1112/HPF Above high normal [id number] - [facility] Squamous #/area UrnS Auto 18/HPF Normal [id number] [facility] RBC # Ur Auto 6179/mcL Above high normal [id number] 0 - 2 7 [facility] ADD-ON MICRO Add-On request fulfilled. Normal [id number] [facility] Additional workup Urine culture workup Normal [facility] Requestor Name and Contact Number Vilma Rowland [phone] Normal [id number] [facility] Add-on testing request type: Additional Isolate Identification Normal [facility] Specimen Source: urine, clean catch Normal [id number] [facility] Specimen Collection Time (approx.): 1508 Normal [id number] [facility] Specimen Collection Date: 20231124 Normal [facility] POCT NOVA-INSTRUMENT NAME M8W Normal [facility] Glucose BldC Glucomtr-mCnc 75mg/dL Normal [facility] POCT NOVA-INSTRUMENT NAME M8R Normal [facility] Glucose BldC Glucomtr-mCnc 168mg/dL Above high normal [id number] [facility] POCT NOVA-INSTRUMENT NAME M8X Normal [facility] Glucose BldC Glucomtr-mCnc 247mg/dL Above high normal [id number] [facility] POCT NOVA-INSTRUMENT NAME M8W Normal [id number] [facility] Glucose BldC Glucomtr-mCnc 123mg/dL Above high normal [id number] [facility] POCT NOVA-INSTRUMENT NAME AED49 Normal [id number] [facility] Glucose BldC Glucomtr-mCnc 135mg/dL Above high normal [id number] [facility] POCT NOVA-INSTRUMENT NAME AED50 Normal [id number] [facility] Glucose BldC Glucomtr-mCnc 125mg/dL Above high normal [id number] [facility] POCT NOVA-INSTRUMENT NAME AED50 Normal [id number] [facility] Glucose BldC Glucomtr-mCnc 78mg/dL Normal [id number] [facility] POCT NOVA-INSTRUMENT NAME AED50 Normal [id number] [facility] Glucose BldC Glucomtr-mCnc 80mg/dL Normal [id number] [facility] POCT NOVA-INSTRUMENT NAME AED50 Normal [id number] [facility] Glucose BldC Glucomtr-mCnc 56mg/dL Critically low [id number] [facility] POCT NOVA-INSTRUMENT NAME AED50 Normal [id number] [facility] Glucose BldC Glucomtr-mCnc 96mg/dL Normal [id number] [facility] POCT NOVA-INSTRUMENT NAME AED47 Normal [id number] [facility] Glucose BldC Glucomtr-mCnc 166mg/dL Above high normal [id number] [facility] Age 38a Normal [id number] [facility] SARS-CoV-2 RNA Resp Ql CAYDEN+probe Normal [id number] [facility] SARS-CoV-2 RNA Resp Ql CAYDEN+probe Normal [id number] [facility] Is the patient having COVID symptoms? Normal [id number] [facility] RSV DHEERAJ No RNA Detected Normal [id number] [facility] INFLUENZA B DHEERAJ No RNA Detected Normal [id number] [facility] INFLUENZA A DHEERAJ No RNA Detected Normal [facility] CHLAMYDIA PNEUMONIAE DHEERAJ No DNA Detected Normal [facility] PARAINFLUENZA 4 DHEERAJ No RNA Detected Normal [facility] METAPNEUMOVIRUS DHEERAJ No RNA Detected Normal [facility] PARAINFLUENZA 3 DHEERAJ No RNA Detected Normal [facility] RHINOVIRUS DHEERAJ No RNA Detected Normal [facility] PARAINFLUENZA 2 DHEERAJ No RNA Detected Normal [facility] ADENOVIRUS DHEERAJ No DNA Detected Normal [facility] CORONAVIRUS DHEERAJ No RNA Detected Normal [facility] MYCOPLASMA PNEUMONIAE DHEERAJ No DNA Detected Normal [facility] PARAINFLUENZA 1 DHEERAJ No RNA Detected Normal [facility] Is the patient having COVID symptoms? Normal [facility] POCT NOVA-INSTRUMENT NAME AED53 Normal [id number] [facility] Glucose BldC Glucomtr-mCnc 153mg/dL Above high normal [id number] 71 - 99 [facility] Benzodiaz metab Ur Ql Scn Not Detected Normal [id number] [facility] Cannabinoids Ur Scn-mCnc Unconfirmed Positive Screen Normal [id number] [facility] fentaNYL Ur Ql Scn Not Detected Normal [id number] [facility] Barbiturates Ur Ql Scn>200 ng/mL Not Detected Normal [id number] [facility] oxyCODONE SerPlBld Scn-mCnc Not Detected Normal [id number] [facility] Cocaine+BZE Ur Ql Scn Not Detected Normal [id number] [facility] Methadone Ur Ql Scn Not Detected Normal [id number] [facility] Opiates Ur Ql Scn Not Detected Normal [id number] [facility] Amphetamines Ur Ql Scn Not Detected Normal [id number] [facility] Gentamicin Islt NELIA 2ug/mL Normal [id number] [facility] Aztreonam Islt NELIA 2ug/mL Normal [id number] [facility] Cefepime Islt NELIA 1ug/mL Normal [id number] - [facility] cefOXitin Islt NELIA 4ug/mL Normal [id number] [facility] Nitrofurantoin Islt NELIA 16ug/mL Normal [id number] [facility] TMP SMX Islt NELIA <=0.5/9.5 Normal [id number] [facility] Ertapenem Islt NELIA 0.25ug/mL Normal [id number] [facility] Bacteria Ur Cult Abnormal [id number] [facility] ceFAZolin Islt NELIA 1ug/mL Normal [id number] - [facility] Cefuroxime Islt NELIA 4ug/mL Normal [id number] [facility] cefTAZidime Islt NELIA 2ug/mL Normal [id number] [facility] Tetracycline Islt NELIA 2ug/mL Normal [id number] [facility] Tobramycin Islt NELIA 2ug/mL Normal [id number] [facility] Amoxicillin+Clav Islt NELIA <=4/2 Normal [id number] [facility] Ampicillin+Sulbac Islt NELIA 4/2 Normal [id number] [facility] cefTRIAXone Islt NELIA 1ug/mL Normal [id number] [facility] Ciprofloxacin Islt NELIA 0.25ug/mL Normal [id number] [facility] Meropenem Islt NELIA 0.5ug/mL Normal [id number] [facility] Pip+Tazo Islt NELIA <=2/4 Normal [id number] [facility] Ampicillin Islt NELIA 4ug/mL Normal [id number] [facility] Bacteria Ur Cult Multiple organisms present with no predominating uropathogen, suggestive of contamination. No further workup to follow. Please resubmit to the Micro lab for repeat testing if clinically indicated. Normal [facility] Appearance Ur Cloudy Normal [facility] Hgb Ur Ql Strip.auto Moderate Abnormal [id number] - [facility] Glucose Ur Strip.auto-mCnc 500mg/dL Abnormal [id number] - [facility] Prot Ur Ql Strip.auto 3+ Abnormal [id number] - [facility] Bilirub Ur Ql Strip.auto Negative Normal [id number] - [facility] Nitrite Ur Ql Strip.auto Negative Normal [id number] - [facility] Leukocyte esterase Ur Ql Strip.auto Large Abnormal [id number] [facility] Bacteria #/area UrnS Auto Many Abnormal [id number] - [facility] Ketones Ur Ql Strip.auto Small Abnormal [id number] - [facility] Urobilinogen Ur Strip.auto-mCnc 0.2mg/dL Normal [id number] [facility] Color Ur Yellow Normal [id number] [facility] LAB UR YEAST UA Present Abnormal [id number] - [facility] Sp Gr Ur Refractometry 1.013 Normal [id number] 1.003 - 1.03 [facility] Hyaline Casts #/area UrnS Auto 34/LPF Above high normal [id number] 0 - 3 [facility] pH Ur Strip.auto 6 Normal [id number] 4.6 - 8 [facility] WBC # Ur Auto 2108/mcL Above high normal [id number] 0 - 2 7 [facility] WBC #/area UrnS Auto 379/HPF Above high normal [id number] - [facility] RBC #/area UrnS Auto 57/HPF Above high normal [id number] - [facility] Squamous #/area UrnS Auto 4/HPF Normal [id number] [facility] RBC # Ur Auto 317/mcL Above high normal [id number] 0 - 2 7 [facility] SaO2 % BldV 93.9% Normal [id number] [facility] HCO3 BldV-sCnc 29mmol/L Normal [id number] [facility] 51975-5 37DegC Normal [id number] [facility] Base excess BldV Calc-sCnc 5.2mmol/L Normal [id number] [facility] pH BldV 7.45 Above high normal [id number] 7.32 - 7.42 [facility] pCO2 BldCoV 43mmHg Normal [id number] [facility] pO2 BldV 64mmHg Normal [id number] [facility] Calcium SerPl-mCnc 8.7mg/dL Normal [id number] 8.4 - 10.5 [facility] BUN SerPl-mCnc 13mg/dL Normal [id number] 7 - 22 [facility] Creat SerPl-mCnc 0.6mg/dL Normal [id number] 0.5 - 1.2 [facility] Chloride SerPl-sCnc 102mmol/L Normal [id number] 96 - 10 9 [facility] BUN/Creat SerPl 22 Normal [id number] [facility] GFR/BSA.pred SerPlBld ZJQ-BEC-JiEDes 118mL/min/1.73sqm Normal [id number] 60 - [facility] CO2 SerPl-sCnc 28mmol/L Normal [id number] 21 - 31 [facility] Potassium SerPl-sCnc 3.6mmol/L Normal [id number] 3.5 - 5.1 [facility] Sodium SerPl-sCnc 141mmol/L Normal [id number] 135 - 148 [facility] Glucose SerPl-mCnc 159mg/dL Above high normal [id number] 71 - 99 [facility] Anion Gap SerPl-sCnc 11mmol/L Normal [id number] 7 - 16 [facility] POCT NOVA-INSTRUMENT NAME AED53 Normal [id number] [facility] Glucose BldC Glucomtr-mCnc 223mg/dL Above high normal [id number] 71 - 99 [facility] SARS-rel CoV RNA Resp Ql CAYDEN+probe Normal [id number] [facility] Is the patient having COVID symptoms? Normal [id number] [facility] SARS-rel CoV RNA Resp Ql CAYDEN+probe RNA NOT Detected Normal [id number] [facility] POCT INSTRUMENT NAME CPHD-C Normal [id number] [facility] SARS-rel CoV RNA Resp Ql CAYDEN+probe RNA NOT Detected Normal [id number] [facility] POCT INSTRUMENT NAME CPHD-C Normal [id number] [facility] Should a Whole Blood Lactic Acid result greater than or equal to 2.0 trigger a repeat test in 2hrs, per Sepsis Protocol? Yes Normal [id number] [facility] Lactate Bld-sCnc 1.7mmol/L Normal [id number] 0.5 - 2 [facility] HCG Preg SerPl Ql Negative Normal [id number] [facility] HCG SerPl-aCnc 5mIU/mL Normal [id number] - [facility] Monocytes # Bld Auto 0.48K/cumm Normal [id number] 0.1 - 1.2 [facility] Neutrophils # Bld Auto 5.86K/cumm Normal [id number] 1.5 - 7.8 [facility] Eosinophil # Bld Auto 0.02K/cumm Below low normal [id number] 0.12 - 0.3 [facility] MCHC RBC Auto-mCnc 32.9g/dL Normal [id number] 31 - 37 [facility] WBC nRBC cor # Bld Auto 8.15K/cumm Normal [id number] 4.5 - 11 [facility] Monocytes/leuk NFr Bld Auto 5.9% Normal [id number] 2 - 11 [facility] Hct VFr Bld Auto 33.1% Below low normal [id number] 36 - 46 [facility] nRBC/100 WBC Bld Manual-Rto 0K/cumm Normal [id number] 0 - 0.01 [facility] RDW RBC Auto-Rto 14% Normal [id number] 11.5 - 14.5 [facility] PMV Bld Auto 10.3fL Normal [id number] 9.2 - 12.7 [facility] Eosinophil/leuk NFr Bld Auto 0.2% Below low normal [id number] 1 - 4 [facility] MCH RBC Qn Auto 26.7pg Normal [id number] 26 - 34 J Basophils/leuk NFr Bld Auto 0.7% Normal [id number] 0 - 2 [facility] Lymphocytes # Bld Auto 1.63K/cumm Normal [id number] 1.1 - 4.8 [facility] RBC # Bld Auto 4.08M/cumm Normal [id number] 4 - 5.2 J Neutrophils/leuk NFr Bld Auto 72% Above high normal [id number] 40 - 70 [facility] Imm Granulocytes # Bld Auto 0.1K/cumm Above high normal [id number] 0 - 0.05 [facility] Platelet # Bld Auto 365K/cumm Above high normal [id number] 150 - 350 [facility] MCV RBC Auto 81.1fL Normal [id number] 80 - 100 [facility] Lymphocytes/leuk NFr Bld Auto 20% Below low normal [id number] 24 - 44 [facility] Imm Granulocytes/leuk NFr Bld Auto 1.2% Above high normal [id number] 0 - 1 [facility] Hgb Bld-mCnc 10.9g/dL Below low normal [id number] 12 - 15 [facility] B-OH-Butyr SerPl-sCnc 1.65mmol/L Above high normal [id number] 0 - 0.27 [facility] Ethanol SerPl-mCnc 10mg/dL Normal [id number] - [facility] Lipase SerPl-cCnc 20U/L Normal [id number] 16 - 63 [facility] TSH SerPl-aCnc 1.12mcIU/mL Normal [id number] 0.5 - 4.5 [facility] AST SerPl-cCnc 15U/L Normal [id number] - [facility] Creat SerPl-mCnc 0.8mg/dL Normal [id number] 0.5 - 1.2 [facility] CO2 SerPl-sCnc 26mmol/L Normal [id number] 21 - 31 [facility] Albumin SerPl BCG-mCnc 4g/dL Normal [id number] 3.5 - 5.3 [facility] ALT SerPl w/o P-5'-P-cCnc 14U/L Normal [id number] - [facility] Potassium SerPl-sCnc 3.9mmol/L Normal [id number] 3.5 - 5.1 [facility] Bilirub SerPl-mCnc 0.2mg/dL Normal [id number] - [facility] Calcium SerPl-mCnc 9.8mg/dL Normal [id number] 8.4 - 10.5 [facility] AST/ALT SerPl-cRto 1.1 Normal [id number] [facility] BUN SerPl-mCnc 16mg/dL Normal [id number] 7 - 22 [facility] ALP SerPl-cCnc 137U/L Above high normal [id number] 30 - 120 [facility] Chloride SerPl-sCnc 98mmol/L Normal [id number] 96 - 10 9 [facility] BUN/Creat SerPl 20 Normal [id number] [facility] GFR/BSA.pred SerPlBld UEB-LWS-AqSJqs 97mL/min/1.73sqm Normal [id number] 60 - [facility] Prot SerPl-mCnc 7.4g/dL Normal [id number] 6 - 8.2 J Sodium SerPl-sCnc 142mmol/L Normal [id number] 135 - 148 [facility] Glucose SerPl-mCnc 246mg/dL Above high normal [id number] 71 - 99 [facility] Anion Gap SerPl-sCnc 18mmol/L Above high normal [id number] - 16 [facility] LAB CHEM MAGNESIUM - CATEGORY Normal [id number] [facility] Magnesium SerPl-mCnc 1.9mg/dL Normal [id number] 1.6 - 2.4 [facility] Potassium Bld-sCnc 3.6mmol/L Normal [id number] 3.5 - 5. 1 [facility] Troponin I SerPl HS-mCnc 4ng/L Normal [id number] - [facility] SaO2 % BldV 89% Normal [id number] [facility] HCO3 BldV-sCnc 30mmol/L Normal [id number] [facility] [address]-3 37DegC Normal [id number] [facility] Base excess BldV Calc-sCnc 6.1mmol/L Normal [id number] [facility] pH BldV 7.46 Above high normal [id number] 7.32 - 7.42 [facility] pCO2 BldCoV 43mmHg Normal [id number] [facility] pO2 BldV 53mmHg Normal [id number] [facility] POCT NOVA-INSTRUMENT NAME AED53 Normal [id number] [facility] Glucose BldC Glucomtr-mCnc 230mg/dL Above high normal [id number] [facility] Is the patient having COVID symptoms? Normal [id number] [facility] Is the patient having COVID symptoms? Normal [id number] [facility] POCT NOVA-INSTRUMENT NAME AED47 Normal [id number] [facility] Glucose BldC Glucomtr-mCnc 330mg/dL Above high normal [id number] [facility] POCT NOVA-INSTRUMENT NAME AED47 Normal [id number] [facility] Glucose BldC Glucomtr-mCnc 239mg/dL Above high normal [id number] [facility] POCT NOVA-INSTRUMENT NAME AED47 Normal [id number] [facility] Glucose BldC Glucomtr-mCnc 255mg/dL Above high normal [id number] [facility] POCT NOVA-INSTRUMENT NAME AED47 Normal [id number] [facility] Glucose BldC Glucomtr-mCnc 245mg/dL Above high normal [id number] [facility] POCT NOVA-INSTRUMENT NAME AED48 Normal [id number] [facility] Glucose BldC Glucomtr-mCnc 245mg/dL Above high normal [id number] [facility] Potassium Bld-sCnc 3.9mmol/L Normal [id number] 3.5 - 5. 1 [facility] Calcium SerPl-mCnc 8.4mg/dL Normal [id number] 8.4 - 10.5 [facility] BUN SerPl-mCnc 31mg/dL Above high normal [id number] [facility] Creat SerPl-mCnc 0.9mg/dL Normal [id number] 0.5 - 1.2 [facility] Chloride SerPl-sCnc 106mmol/L Normal [id number] 96 - 10 9 [facility] BUN/Creat SerPl 34 Normal [id number] [facility] GFR/BSA.pred SerPlBld YWC-IFH-JyIHgc 84mL/min/1.73sqm Normal [id number] 60 - [facility] CO2 SerPl-sCnc 24mmol/L Normal [id number] 21 - [facility] Potassium SerPl-sCnc 4.1mmol/L Normal [id number] 3.5 - 5.1 [facility] Sodium SerPl-sCnc 142mmol/L Normal [id number] 135 - 148 [facility] Glucose SerPl-mCnc 248mg/dL Above high normal [id number] [facility] Anion Gap SerPl-sCnc 12mmol/L Normal [id number] [facility] POCT NOVA-INSTRUMENT NAME AED48 Normal [id number] [facility] Glucose BldC Glucomtr-mCnc 243mg/dL Above high normal [id number] [facility] Potassium Bld-sCnc 4mmol/L Normal [id number] 3.5 - 5. 1 [facility] Calcium SerPl-mCnc 9mg/dL Normal [id number] 8.4 - 10.5 [facility] BUN SerPl-mCnc 34mg/dL Above high normal [id number] [facility] Creat SerPl-mCnc 1.1mg/dL Normal [id number] 0.5 - 1.2 [facility] Chloride SerPl-sCnc 100mmol/L Normal [id number] 96 - 10 9 [facility] BUN/Creat SerPl 31 Normal [id number] J GFR/BSA.pred SerPlBld EBV-VBH-UxVLnp 66mL/min/1.73sqm Normal [id number] 60 - [facility] CO2 SerPl-sCnc 25mmol/L Normal [id number] [facility] Potassium SerPl-sCnc 4.3mmol/L Normal [id number] 3.5 - 5.1 [facility] Sodium SerPl-sCnc 139mmol/L Normal [id number] 135 - 148 [facility] Glucose SerPl-mCnc 331mg/dL Above high normal [id number] [facility] Anion Gap SerPl-sCnc 14mmol/L Normal [id number] [facility] POCT NOVA-INSTRUMENT NAME AED48 Normal [id number] [facility] Glucose BldC Glucomtr-mCnc 300mg/dL Above high normal [id number] [facility] POCT NOVA-INSTRUMENT NAME AED48 Normal [id number] [facility] Glucose BldC Glucomtr-mCnc 349mg/dL Above high normal [id number] [facility] Potassium Bld-sCnc 4.1mmol/L Normal [id number] 3.5 - 5. 1 [facility] POCT NOVA-INSTRUMENT NAME AED48 Normal [id number] [facility] Glucose BldC Glucomtr-mCnc 383mg/dL Above high normal [id number] [facility] Calcium SerPl-mCnc 8.2mg/dL Below low normal [id number] 8.4 - 10.5 [facility] BUN SerPl-mCnc 33mg/dL Above high normal [id number] [facility] Creat SerPl-mCnc 1mg/dL Normal 0.5 - 1.2 [facility] Chloride SerPl-sCnc 99mmol/L Normal [id number] 96 - 10 9 [facility] BUN/Creat SerPl 33 Normal [id number] J GFR/BSA.pred SerPlBld UOR-WIR-TrBYui 74mL/min/1.73sqm Normal [id number] 60 - [facility] CO2 SerPl-sCnc 22mmol/L Normal [id number] 21 - [facility] Potassium SerPl-sCnc 4.2mmol/L Normal [id number] 3.5 - 5.1 [facility] Sodium SerPl-sCnc 137mmol/L Normal [id number] 135 - 148 [facility] Glucose SerPl-mCnc 421mg/dL Above high normal [id number] [facility] Anion Gap SerPl-sCnc 16mmol/L Normal [id number] 16 [facility] POCT NOVA-INSTRUMENT NAME AED49 Normal [facility] Glucose BldC Glucomtr-mCnc 497mg/dL Above high normal [id number] [facility] POCT NOVA-INSTRUMENT NAME AED49 Normal [id number] [facility] Glucose BldC Glucomtr-mCnc 600mg/dL Above high normal [id number] [facility] Potassium Bld-sCnc 4.7mmol/L Normal [id number] 3.5 - 5. 1 [facility] Calcium SerPl-mCnc 9.3mg/dL Normal [id number] 8.4 - 10.5 [facility] BUN SerPl-mCnc 40mg/dL Above high normal [id number] 7 - 22 [facility] Creat SerPl-mCnc 1.3mg/dL Above high normal [id number] 0. 5 - 1.2 [facility] Chloride SerPl-sCnc 94mmol/L Below low normal [id number] 96 - 109 [facility] BUN/Creat SerPl 31 Normal [id number] [facility] GFR/BSA.pred SerPlBld AGM-GCI-BeQZxa 54mL/min/1.73sqm Below low normal [id number] 60 - [facility] CO2 SerPl-sCnc 16mmol/L Below low normal [id number] 21 - 31 [facility] Potassium SerPl-sCnc 4.9mmol/L Normal [id number] 3.5 - 5.1 [facility] Sodium SerPl-sCnc 137mmol/L Normal [id number] 135 - 148 [facility] Glucose SerPl-mCnc 655mg/dL Critically abnormal [id number] 71 - 99 [facility] Anion Gap SerPl-sCnc 27mmol/L Above high normal [id number] [facility] Appearance Ur Cloudy Normal [id number] [facility] Hgb Ur Ql Strip.auto Small Abnormal [id number] [facility] Glucose Ur Strip.auto-mCnc >=1000 Abnormal [id number] [facility] Prot Ur Ql Strip.auto 2+ Abnormal [id number] [facility] Bilirub Ur Ql Strip.auto Negative Normal [id number] [facility] Nitrite Ur Ql Strip.auto Negative Normal [id number] [facility] Leukocyte esterase Ur Ql Strip.auto Negative Normal [id number] [facility] Bacteria #/area UrnS Auto Few Normal [id number] [facility] Ketones Ur Ql Strip.auto Moderate Abnormal [id number] [facility] Urobilinogen Ur Strip.auto-mCnc 0.2mg/dL Normal [id number] [facility] Color Ur Yellow Normal [id number] [facility] LAB UR YEAST UA Present Abnormal [id number] - [facility] Sp Gr Ur Refractometry 1.023 Normal [id number] 1.003 - 1.03 [facility] Hyaline Casts #/area UrnS Auto 0/LPF Normal [id number] 0 - 3 [facility] pH Ur Strip.auto 5 Normal [id number] 4.6 - 8 [facility] WBC # Ur Auto 15/mcL Normal [id number] 0 - 27 [facility] WBC #/area UrnS Auto 3/HPF Normal [id number] - [facility] RBC #/area UrnS Auto 14/HPF Above high normal 588777432499 - [facility] Squamous #/area UrnS Auto 6/HPF Normal [id number] [facility] RBC # Ur Auto 77/mcL Above high normal [id number] 0 - 2 7 [facility] POCT NOVA-INSTRUMENT NAME AED49 Normal [id number] [facility] Glucose BldC Glucomtr-mCnc 588mg/dL Above high normal [facility] POCT NOVA-INSTRUMENT NAME AED49 Normal [id number] [facility] Glucose BldC Glucomtr-mCnc 600mg/dL Above high normal [id number] 71 - 99 [facility] Calcium SerPl-mCnc 8.8mg/dL Normal [id number] 8.4 - 10.5 [facility] BUN SerPl-mCnc 41mg/dL Above high normal [id number] 7 - 22 [facility] Creat SerPl-mCnc 1.3mg/dL Above high normal [id number] 0. 5 - 1.2 [facility] Chloride SerPl-sCnc 95mmol/L Below low normal [id number] 96 - 109 [facility] BUN/Creat SerPl 32 Normal [id number] J GFR/BSA.pred SerPlBld ZIG-VLZ-GqFBbu 54mL/min/1.73sqm Below low normal [id number] 60 - [facility] CO2 SerPl-sCnc 18mmol/L Below low normal [id number] 21 - 31 [facility] Potassium SerPl-sCnc 5.4mmol/L Above high normal [id number] 3.5 - 5.1 [facility] Sodium SerPl-sCnc 139mmol/L Normal [id number] 135 - 148 [facility] Glucose SerPl-mCnc 712mg/dL Critically abnormal [id number] 71 - 99 [facility] Anion Gap SerPl-sCnc 26mmol/L Above high normal [id number] 7 - 16 [facility] POCT NOVA-INSTRUMENT NAME AED49 Normal [id number] [facility] Glucose BldC Glucomtr-mCnc 600mg/dL Above high normal [id number] 71 - 99 [facility] B-OH-Butyr SerPl-sCnc 9.93mmol/L Above high normal [id number] 0 - 0.27 [facility] WBC nRBC cor # Bld Auto 8.29K/cumm Normal [id number] 4.5 - 11 [facility] MCH RBC Qn Auto 27.1pg Normal [id number] 26 - 34 J RBC # Bld Auto 3.73M/cumm Below low normal [id number] 4 - 5.2 [facility] Lymphocytes # Bld Auto 1.33K/cumm Normal [id number] 1.1 - 4.8 [facility] Neutrophils/leuk NFr Bld Auto 80.4% Above high normal [id number] 40 - 70 [facility] Lymphocytes/leuk NFr Bld Auto 16% Below low normal [id number] 24 - 44 [facility] PMV Bld Auto 11.7fL Normal [id number] 9.2 - 12.7 [facility] Imm Granulocytes # Bld Auto 0.02K/cumm Normal [id number] 0 - 0.05 [facility] Monocytes/leuk NFr Bld Auto 2.8% Normal [id number] 2 - 11 [facility] Basophils/leuk NFr Bld Auto 0.5% Normal [id number] 0 - 2 [facility] MCHC RBC Auto-mCnc 32.7g/dL Normal [id number] 31 - 37 [facility] Monocytes # Bld Auto 0.23K/cumm Normal [id number] 0.1 - 1.2 [facility] Hct VFr Bld Auto 30.9% Below low normal [id number] 36 - 46 [facility] Eosinophil/leuk NFr Bld Auto 0.1% Below low normal [id number] 1 - 4 [facility] Neutrophils # Bld Auto 6.66K/cumm Normal [id number] 1.5 - 7.8 [facility] Platelet # Bld Auto 325K/cumm Normal [id number] 150 - 3 50 [facility] RDW RBC Auto-Rto 13.9% Normal [id number] 11.5 - 14.5 [facility] nRBC/100 WBC Bld Manual-Rto 0K/cumm Normal 0 - 0.01 [facility] Imm Granulocytes/leuk NFr Bld Auto 0.2% Normal 0 - 1 [facility] Eosinophil # Bld Auto 0.01K/cumm Below low normal 0.12 - 0.3 [facility] Hgb Bld-mCnc 10.1g/dL Below low normal 12 - 15 [facility] MCV RBC Auto 82.8fL Normal [id number] 80 - 100 [facility] pH BldV 7.31 Below low normal 7.32 - 7.42 [facility] 74676-4 37DegC Normal [id number] [facility] pCO2 BldCoV 39mmHg Normal [facility] HCO3 BldV-sCnc 19mmol/L Normal [facility] pO2 BldV 52mmHg Normal [facility] SaO2 % BldV 83.8% Normal [id number] [facility] Base excess BldV Calc-sCnc -6.5mmol/L Normal [facility] HCG Preg SerPl Ql Negative Normal [facility] HCG SerPl-aCnc 5mIU/mL Normal [id number] - [facility] ALP SerPl-cCnc 150U/L Above high normal [id number] 30 - 120 [facility] AST/ALT SerPl-cRto 1.4 Normal [id number] [facility] Glucose SerPl-mCnc 773mg/dL Critically abnormal 71 - 99 [facility] Chloride SerPl-sCnc 89mmol/L Below low normal [id number] 96 - 109 [facility] BUN SerPl-mCnc 44mg/dL Above high normal 22 [facility] Calcium SerPl-mCnc 9.6mg/dL Normal 8.4 - 10.5 [facility] Anion Gap SerPl-sCnc 30mmol/L Above high normal - 16 [facility] ALT SerPl w/o P-5'-P-cCnc 10U/L Normal [id number] - [facility] Sodium SerPl-sCnc 137mmol/L Normal 135 - 148 [facility] CO2 SerPl-sCnc 18mmol/L Below low normal 21 - [facility] GFR/BSA.pred SerPlBld SEA-ONO-XaEYsm 45mL/min/1.73sqm Below low normal [id number] 60 - [facility] Potassium SerPl-sCnc 6mmol/L Above high normal [id number] 3.5 - 5.1 [facility] AST SerPl-cCnc 14U/L Normal [id number] - [facility] Albumin SerPl BCG-mCnc 3.8g/dL Normal [id number] 3.5 - 5.3 [facility] Creat SerPl-mCnc 1.5mg/dL Above high normal [id number] 0. 5 - 1.2 [facility] BUN/Creat SerPl 29 Normal [id number] J Bilirub SerPl-mCnc 0.2mg/dL Normal [id number] - [facility] Prot SerPl-mCnc 7.1g/dL Normal [id number] 6 - 8.2 J POCT NOVA-INSTRUMENT NAME AED56 Normal [id number] [facility] Glucose BldC Glucomtr-mCnc 600mg/dL Above high normal [id number] 71 - 99 [facility]
--- OUTSIDE RECORDS SUMMARY | 2024-07-26 05:45 | XMS_ITS | Encounter Summary ---
Author Organization [employer]: [facility] & [facility] Address [facility] [phone] [place] [address] Care Team Providers Care Knitting Tester Name Role Phone Celsa Preston MD Primary Care Provider [phone] Encounter Details Date Type Department Care Team (Latest Contact Info) Description 01/26/2003 Orders Only Bernardino Schmitt MD [facility] Urgent Appointments [address] [place] [address] Social History Tobacco Use Types Packs/Day Years Used Date Smoking Tobacco: Never Assessed Sex and Gender Information Value Date Recorded Sex Assigned at Female 12/25/2023 2:20 PM EDT Gender Identity Female 12/25/2023 2:20 PM EDT Sexual Orientation Bisexual 12/25/2023 2: 20 PM EDT documented as of this encounter Plan of Treatment Not on file documented as of this encounter Procedures Procedure Name Priority Date/Time Associated Diagnosis Comments USOO BIOPHYSICAL PROFILE GEST SGL W/NST([facility] ONLY) Routine 01/26/2003 documented in this encounter Results * US BIOPHYSICAL PROFILE GEST SGL (01/26/2003) Anatomical Region Laterality Modality Pelvis Other 01/26/2003 Narrative 07/07/2005 4:32 PM EST ? D I A G N O S T I C ?? I M A G I N G ?? R E P O R T ?[place], [place] - ?? Pt Name: ??ANABELLA MERCADO ? Date: ? 26-Jan-2003 ? Pt.Type: O ?? Rm #: ? Exam #: ??[id number] ?? Ord.Phys: BERNARDINO SCHMITT MD ? : ? 1985 ?? MR #: ? [id number] ?HIS #: ?? [id number] ?Pertinent Clinical Information: ?DECREASED MOVEMENT ?? Exam: US BIOPHYSICAL PROFILE ?? NON STRESS TEST ? - ?? movement: ? 2 ?? breathing: ?0 ?? tone: ? 2 ?? Amniotic fluid volume: ?2 ? UVALDO: ??9.1 cms ?? SCORE: ? 6/8 ?? COMMENT: FTL - breathing noted but <30 second episodes. ?signed: KATIE ZAVALA M.D. ?? CSS/sms ?? Dictated: ? 26-Jan-2003 16:43 ?? Drafted: ?29-Jan-2003 12:59 Bernardino Schmitt MD [facility] documented in this encounter Visit Diagnoses Not [...] documented as of this encounter Care Teams Knitting Tester Relationship Specialty Start Date End Date Celsa Preston MD [address] [place] [address] PCP - General Internal Medicine 12/10/17 documented as of this encounter
--- OUTSIDE RECORDS SUMMARY | 2024-07-26 05:45 | XMS_ITS | Encounter Summary ---
Author Organization [employer]: [facility] Address [facility] [phone] [place] [address] Care Team Providers Care Director Teen Post Name Role Phone Celsa Preston MD Primary Care Provider [phone] Encounter Details Date Type Department Care Team (Late st Contact Info) Description 09/21/2005 Orders Only [facility] [place] [address] Marry Schaefer MD [address] [place] [address] 118[address] UNSPEC ECTOPIC PREG W/0 INTRAUT PREG (Primary Dx) Social History Tobacco Use Types Packs/Day Years Used Date Smoking Tobacco: Never Assessed Sex and Gender Information Value Date Recorded Sex Assigned at Female 12/25/2023 2:20 PM EDT Gender Identity Female 12/25/2023 2:20 PM EDT Sexual Orientation Bisexual 12/25/2023 2: 20 PM EDT documented as of this encounter Plan of Treatment Not on file documented as of this encounter Results * (ABNORMAL) US OBS 1ST TRI (09/24/2005 5:49 PM EST) Anatomical Region Laterality Modality Pelvis Ultrasound Impressions 09/24/2005 5:30 PM EST 1. EIGHT WEEK, FIVE DAY, SINGLE, VIABLE INTRAUTERINE WITHOUT EVIDENCE OF ECTOPIC . ?? Narrative 09/24/2005 5:30 PM EST FINDINGS: ??Sonography of the pelvis demonstrates a single, living intrauterine with a crown-rump length of 2.08 cm which corresponds to a gestational age of 8 weeks, 5 days. ?? cardiac activity at 153 beats per minute was identified. ??There is no evidence of an implantation hemorrhage. ??The ovaries appear unremarkable. ??There is no evidence of fluid in the cul-de-sac. Procedure Note Patricio Raman - 09/26/2005 FINDINGS: Sonography of the pelvis demonstrates a single, livingintrauterine with a crown-rump length of 2.08 cm whichcorresponds to a gestational age of 8 weeks, 5 days. cardiacactivity at 153 beats per minute was identified. There is no evidence ofan implantation hemorrhage. The ovaries appear unremarkable. There is noevidence of fluid in the cul-de-sac. IMPRESSION 1. EIGHT WEEK, FIVE DAY, SINGLE, VIABLE INTRAUTERINE WITHOUTEVIDENCE OF ECTOPIC . Marry Schaefer MD [facility] documented in this encounter Visit Diagnoses Diagnosis Unspecified ectopic without intrauterine - Primary documented in this encounter Additional Health Concerns [...] documented as of this encounter Care Teams Director Teen Post Relationship Specialty Start Date End Date Celsa Preston MD [address] [place], [place] [phone] PCP - General Internal Medicine 12/10/17 documented as of this encounter
--- OUTSIDE RECORDS SUMMARY | 2024-07-26 05:45 | XMS_ITS | Encounter Summary ---
Author Organization [employer]: [facility] & [facility] Care Address [facility] [phone] [place] [address] Care Team Providers Care Research Program Coordinator Name Role Phone Celsa Preston MD Primary Care Provider [phone] Encounter Details Date Type Department Care Team ([facility] st Contact Info) Description 09/23/2001 Orders Only [facility] Imaging [address] [place] [address] Noé Guillory MD Social History Tobacco Use Types Packs/Day Years [...] Procedure Name Priority Date/Time Associated Diagnosis Comments XR ELBOW LT 3+ VIEWS Routine 09/23/2001 1:20 PM EST documented in this encounter Results * XR ELBOW LT (09/23/2001 1:20 PM EST) Anatomical Region Laterality Modality Other 09/23/2001 1:20 PM EST Narrative 12/18/2005 2:17 PM EDT ? D I A G N O S T I C ?? I M A G I N G ?? R E P O R T ?[facility] - ?? Pt Name: ??ANABELLA MERCADO ? Date: ? 23-Sep-2001 ? Pt.Type: O ?? Rm #: ? Exam #: ??[id number] ?? Ord.Phys: NOÉ GUILLORY MD ?: ? 1985 ?? MR #: ? [id number] ?HIS #: ?Pertinent Clinical Information: ?PREVIOUS FX ?R/O FX ?? Exam: DC ELBOW LEFT ?? There is no evidence of a joint effusion. There are no fractures. ?? The joint spaces are well maintained. ?? IMPRESSION: NEGATIVE. ?signed: IVETTE NGUYEN M.D. ?? GC/scm ?? Dictated: ? 23-Sep-2001 15:47 ?? Drafted: ?23-Sep-2001 22:04 Noé Guillory MD [facility] documented in this encounter Visit Diagnoses Not [...] 5:05 PM EST Influenza Rule-Out 07/05/2024 07/05/2024 5 8:09 AM EST RSV Rule-Out 07/05/2024 07/05/2024 07/05/2024 8:09 AM EST COVID-19 Rule-Out 07/05/2024 07/05/2024 07/05/2024 8:09 AM EST documented as of this encounter Care Teams Research Program Coordinator Relationship Specialty Start Date End Date Celsa Preston MD [address] [place] [address] PCP - General Internal Medicine 12/10/17 documented as of this encounter
--- OUTSIDE RECORDS SUMMARY | 2024-07-26 05:45 | XMS_ITS | Encounter Summary ---
Author Organization [employer]: [facility] & [facility] Address [facility] [phone] [place] [address] Care Team Providers Care Parts Sales Advisor Name Role Phone Celsa Preston MD Primary Care Provider [phone] Encounter Details Date Type Department Care Team (Latest Contact Info) Description 01/16/2003 Orders Only Bernardino Schmitt MD [facility] Urgent Appointments [address] [place] [address] Social History Tobacco Use Types Packs/Day Years [...] Procedure Name Priority Date/Time Associated Diagnosis Comments US OBS /3RD TRI Routine 01/16/2003 USOO BIOPHYSICAL PROFILE GEST SGL W/NST([facility] ONLY) Routine 01/16/2003 documented in this encounter Results * US BIOPHYSICAL PROFILE GEST SGL (01/16/2003) Anatomical Region Laterality Modality Pelvis Other 01/16/2003 Narrative 07/07/2005 4:08 PM EST ? D I A G N O S T I C ?? I M A G I N G ?? R E P O R T ?[place], [place] - ?? Pt Name: ??ANABELLA MERCADO ? Date: ? 16-Jan-2003 ? Pt.Type: O ?? Rm #: ? Exam #: ??[id number] ?? Ord.Phys: BERNARDINO SCHMITT MD ? : ? 1985 ?? MR #: ? [id number] ?HIS #: ?? [id number] ?Pertinent Clinical Information: ?PRE TERM ABD PAIN ?? Exam: US BIOPHYSICAL PROFILE ?? NON STRESS TEST ?? movement: ?2 ?? breathin ?? tone: ??2 ?? Amniotic fluid volume: ?? 2 ? UVALDO: ??17.1 CMS ?? SCORE: 8/8 ?? COMMENT: ??VERTEX, ??HR 136 BPM. ?signed: AMA REYNOLDS MD ?? PV/jt ?? Dictated: ? 16-Jan-2003 14:45 ?? Drafted: ?18-Jan-2003 08:45 Bernardino Schmitt MD [facility] * US OBS TRI (01/16/2003) Anatomical Region Laterality Modality Pelvis Other 01/16/2003 Narrative 07/07/2005 4:08 PM EST ? D I A G N O S T I C ?? I M A G I N G ?? R E P O R T ?[place], [place] - ?? Pt Name: ??ANABELLA MERCADO ? Date: ? 16-Jan-2003 ? Pt.Type: O ?? Rm #: ? Exam #: ??[id number] ?? Ord.Phys: BERNARDINO SCHMITT MD ? : ? 1985 ?? MR #: ? [id number] ?HIS #: ?? [id number] ?Pertinent Clinical Information: ?33+WKS GESTATION ?? Exam: US OB 2ND AND 3RD TRIMESTER ?? LMP: ??-- ?? EDC: ? AGE BASED ON EDC: ??33 WKS 3 DAYS ?? FIRST US DATE: ??09/21/02 ?? 16 WKS 5 DAYS ?? AGE BASED ON FIRST US: ??33 WKS 4 DAYS ?? FINDINGS ?GENERAL: ??SINGLE ? POSITION: ??VERTEX ?AMNIOTIC FLUID: ??FOUZIA, UVALDO 17.1 CMS. ?PLACENTA LOCATION:-- ??/ GRADE: ??0 ?ACTIVITY: ??HEART RATE 136 BPM, GENERAL SPONTANEOUS, RESPIRATORY ? THE FOLLOWING ANATOMY WAS IMAGED AND APPEARS NORMAL: ? Stomach, 3-vessel cord, 4-chamber heart, urinary bladder, ? diaphragm, kidneys, spine, choroid plexus, ? cerebellum. ?MEASUREMENTS & CALCULATIONS ? BIPARIETAL DIAMETER: ? 82 MM = 33 WKS 0 DAYS ? HEAD CIRCUMFERENCE: ? 301 MM = 33 WKS 3 DAYS ? ABDOMINAL CIRCUMFERENCE: ?300 MM = 34 WKS 0 DAYS ? FEMUR LENGTH: ?64 MM = 33 WKS 2 DAYS ?COMPOSITE GESTATIONAL AGE: ?? 333 WKS 1 DAY +/- 17 DAYS ?ESTIMATED WEIGHT AT TIME OF ULTRASOUND: ??2233 GMS +/- 335 GMS, ?46% BASED ON KNOWN EDC. ?(cont'd) ?Page 1 ?? Dictated: ? 17-Jan-2003 14:45 ?? Drafted: ?18-Jan-2003 08:44 ? D I A G N O S T I C ?? I M A G I N G ?? R E P O R T ?[place], [place] - ?? Pt Name: ??ANABELLA MERCADO ? Date: ? 16-Jan-2003 ? Pt.Type: O ?? Rm #: ? Exam #: ??[id number] ?? Ord.Phys: BERNARDINO SCHMITT MD ? : ? 1985 ?? MR #: ? [id number] ?HIS #: ?? [id number] ?Pertinent Clinical Information: ?33+WKS GESTATION ? (continued - US OB 2ND AND 3RD TRIMESTER) ?? TECH COMMENTS: ? RVOT, LVOT, NOSE.LOPS, HANDS, FEET NOT SEEN ?? WELL DUE TO POSITION. ??CERVIX = 4 CM. ??NO ABRUPTION OR ?? PLACENTA PREVIA VISUALIZED. ?? IMPRESSION: 33 WEEK 1 DAY INTRAUTERINE . ? NO SONOGRAPHIC EVIDENCE OF PLACENTAL ABRUPTION OR ? PLACENTA PREVIA. ?signed: AMA REYNOLDS MD ?? PV/jt ? Page 2 ?? Dictated: ? 17-Jan-2003 14:45 ?? Drafted: ?18-Jan-2003 08:44 Bernardino Schmitt MD [facility] documented in this encounter Visit [...] documented as of this encounter Care Teams Parts Sales Advisor Relationship Specialty Start Date End Date Celsa Preston MD [address] [place] [address] PCP - General Internal Medicine 12/10/17 documented as of this encounter
--- OUTSIDE RECORDS SUMMARY | 2024-07-26 05:45 | XMS_ITS | Encounter Summary ---
Author Organization [facility]: [facility] Address [facility] [phone] [place] [address] Care Team Providers Care Separating Machine Operator Name Role Phone Celsa Preston MD Primary Care Provider [phone] Reason for Visit * Reason Comments Nausea Vomiting * Hospital AuthCert (Routine) Specialty Diagnoses / Procedures Referred By Chao t Referred To Contact Diagnoses Intractable nausea and vomiting Referral ID Status Reason Start Date Expiration Date Visits Re quested Visits Authorized [id number] 1 1 Encounter Details Date Type Department Care Team (Late st Contact Info) Description 07/05/2024 7:14 AM EST - 07/06/2024 3:30 PM EST [place] [address] [place] [address] Yuli Nair MD [address] C/[place] [address] Dante Isidro MD [address] [place] [id number] Hyperglycemia (Primary Dx); Acute vomiting; Type 1 diabetes mellitus with hyperglycemia Discharge Disposition: Routine Discharge Home Social History [...] Unable or Declines to Respond No 07/03/2023 [facility] Utilities Answer Date Recorded In the past [...] often do you attend chur ch or advent services? Never 06/26/2024 Do you belong to any clubs o r organizations such as holiness groups, unions, fraternal or athletic groups, or [...] place to sleep or slept in a chcf (including now)? Patient declined 03/05/2024 Housing Stability [...] any time in the past 12 m [facility], were you homeless or living in a chcf (including now)? No 06/26/2024 Sex and Gender Information Value Date Recorded Sex Assigned at Female 12/25/2023 2:20 PM EDT Gender Identity Female 12/25/2023 2:20 PM EDT Sexual Orientation Bisexual 12/25/2023 2: 20 PM EDT documented as of this encounter Last Filed Vital Signs Vital Sign Reading Time Taken Comments Blood Pressure 172/104 07/06/2024 11:26 AM EST Pulse 97 07/06/2024 11:00 AM EST Temperature 37.1 ??C (98.8 ??F) 07/06/2024 8:56 AM ES T Respiratory Rate 16 07/06/2024 8:56 AM EST Oxygen Saturation 99% 07/06/2024 8:56 AM EST Inhaled Oxygen Concentration - - Weight 58.1 kg (128 lb) 07/05/2024 7:24 AM EST Height - - Body Mass Index 22.68 06/25/2024 10:17 PM [...] as of this encounter Discharge Summaries * Dante Isidro MD - 07/06/2024 1:44 PM EST DISCHARGE SUMMARY NAME: Lynne Brown AGE: [age] year old : 1985 ROOM: [place] [address] [place]: [id number] ADMITTING PROVIDER: Yuli Nair MD ADMIT DATE: 07/05/2024 PCP: CELSA PRESTON DISCHARGE DATE: 07/06/2024 DISCHARGING PROVIDER: Dante Isidro MD Code Status: Full Code FINAL DIAGNOSIS: Intractable nausea and vomiting History of cyclic vomiting syndrome and gastroparesis Type 1 diabetes mellitus with hyperglycemia (not DKA) Transient decreased responsiveness of unclear etiology SECONDARY DIAGNOSIS: Abnormal urine drug screen-cannabis Sickle cell trait Coronary artery disease Hypertension Dyslipidemia BRIEF HOSPITAL COURSE: Lynne is a 39 year old female with a history of type 1 diabetes mellitus with history of DKA, gastroparesis, sickle cell trait, coronary artery disease, hypertension, dyslipidemia, cardiomyopathy and apparent history of cyclic vomiting syndrome (though I cannot find it in the records other than the H&P from this hospitalization) who presented to the hospital yesterday by ambulance due to altered mental status, nausea and vomiting. She arrived to the ED with decreased level of responsiveness, but by the time she was admitted at 2 PM she was fully oriented and showed no evidence of altered state. She was found to have a blood sugar in the 300s but nothing to suggest DKA and nothing to suggest an underlying infectious process. Remains unclear why her level of consciousness was altered muscle was somehow cannabis-related, but fortunately she is doing fine now, has eaten lunch and is ready for discharge home. She received Reglan in the ED with good effect and received ample intravenous fluid replenishment. She was ordered for metoclopramide 10 mg IV every 6 hours with her last doseat 10 this morning, but when I offered to send her home with a prescription she politely declined. Her blood sugars remain elevated, but she feels she can tackle things at home just as well as we canhear. She is definitely going to be getting a hold of her mill roll rewinder as she is not using her pump currently because of hypoglycemic episodes last week. She will return to her usual 16 units of Lantus daily along with her usual coverage scale. Disposition: Routine Discharge Home CONSULTS:No orders of the defined types were placed in this encounter. PROCEDURES:No orders of the defined types were placed in this encounter. RADIOLOGY TESTS: CT Brain WO Contrast Final Result There is no acute intracranial abnormality. Electronically signed by: Jose Nolen MD 07/05/2024 8:28 AM PROPOSED MANAGEMENT PLAN: Risk for readmission within 30 days: Low Pending results: Unresulted Labs . . . Morphology [[id number]] Collected: 07/06/24701 Updated: 07/06/24724 Specimen Source: Blood, Venous Recommended Testing: Refer to Hospital Course DISCHARGE MEDICATIONS: Medication List TAKE these medications Dose Ordering Provider Morning Afternoon Evening Bedtime amitriptyline 25 MG Tabs Commonly known as: ELAVIL Instructions: Take 25 mg by mouth at bedtime. Dose: 25 mg aspirin 81 MG Chew Instructions: Chew 1 [...] mg total) by mouth every 48 hours. Dose: 325 mg Signed by: MIGUELITO Castro [...] mouth daily. Do not crush or chew Dose: 100 mg Signed by: Wisam Carrasco NERVIVE NERVE RELIEF PO Instructions: Take 1 Tablet by mouth daily. Dose: 1 Tablet NOVOLOG FLEXPEN 100 UNIT/ML Sopn Commonly known as: Insulin Aspart Instructions: Inject 5 Units subcutaneously as directed. Novolog Flexpens 5 units with meals and correction factor 50, target 150 as your were on previously Dose: 5 Units Signed by: MIGUELITO Castro RELION LANCETS [facility]-THIN [facility] Instructions: 1 Lancet 4 times a day before meals and at bedtime. Dose: 1 Lancet Signed by: Nigel Lin DO RELION PREMIER CLASSIC Macy Instructions: 1 Kit once for 1 dose. Dose: 1 Kit Signed by: Nigel Lin DO High-risk Medication Changes: Refer to Hospital Course SCREEN OPERATOR Medication Changes: Refer to Hospital Course FOLLOW UP: CELSA PRESTON MD Follow up. Specialties: Internal Medicine, Hospitalist Why: Please follow-up with your primary care provider within 1 to 2 weeks of discharge. Contact information [address] [facility] [address] RAFA RUSSELL MD Follow up. Specialties: Endocrinology, Internal Medicine Why: Please follow-up with your mill roll rewinder as soon as possible. Contact information [address] [facility] [address] CONDITION ON DISCHARGE: Well-developed well-nourished thin black female looking about her recorded age of 39 lying in bed in no acute distress. She does not look acutely toxic. Skin is warm and dry. HEENT oral mucosa moist and clear neck is supple lungs are clear heart sounds are normal abdomen good bowel sounds soft and nontender no HSM extremities-no edema neuro-- fully oriented awake and alert psych-blunted affect, cooperative ALLERGIES: Review of patient's allergies indicates: Ondansetron Hcl Rash, Itching IMMUNIZATIONS: Immunization History Administered Date(s) Administered DTP [birth year], 09/01/1987 MMR 09/01/1987 Polio - OPV 1985, 1985, 09/01/1987, 02/28/1989 Rhogam 09/14/2016 Tb Intradermal 05/05/2001 Tdap 07/15/2015 DISCHARGE ORDERS: Discharge Orders Procedures Resume diet as at home Activity as tolerated, No restrictions Call MD for: persistent nausea and vomiting TOTAL TIME SPENT ORCHESTRATING DISCHARGE: Time spent preparing discharge: 35-40 minutes, Including including face to face , review of patientrecord, and coordination of care documented in this encounter Discharge Instructions * Discharge Instructions* Dante Isidro MD - 07/06/2024 1:43 PM EST As recommended by the admitting physician, it is important that you strongly consider stopping any use of cannabis, as it can drastically increase your risk for episodes of nausea and vomiting. documented in this encounter Medications at Time [...] Do not crush or chew 03/07/2024 08/08/2024 Specialty Vitamins Products (NERVIVE NERVE RELIEF PO) Take 1 Tablet by mouth daily. documented as of this encounter Progress Notes * oLrin Hurtado RN - 07/05/2024 8:05 PM EST Identify Barriers To Meeting Goals/Advancing Plan Of Care: IV fluids, diet advancement, monitoring HR/BP Teaching needs/Teaching status: Plan of care, safety, fall precautions, mobility, medications, painmanagement, respiratory hygiene, infection prevention, DVT prophylaxis. Pt receptive to teaching. Out of Bed Activity This Shift (Include Assistance Required): independent in room Discharge Needs: pending clinical course Shift Event Update: 1944: Pt set up on telemetry per orders, pt in ST. BP: 167/90. Given one time dose of metoprolol per AUG. 2114: BP rechecked: 168/119. HR: 122, pt remains ST on monitor. POC B, scheduled lantus given. Pt requesting something to help w/ sleep , pt declines her prn ativan. Jojo Mares APRN made aware. OK to keep pt q6 blood sugars and insulin . See new order for prn melatonin. Vitals and assessments as charted. Medicated per MAR. A&Ox4, denies pain, pt appears fatigued. Reports baseline neuropathy to BLE. LS clear/dim on RA, denies SOB/chest pain. Bowel sounds active, denies any GI symptoms including nausea and abd tenderness. LBM: 07/05/2023 per pt report. Abd soft/flat. Tolerating small amounts of clears. Voiding in bathroom without difficulties. Fall precautions in place, call martinez within reach. * Renetta Harding RN - 07/05/2024 6:53 PM EST Assessment as documented. Pt is A+Ox4, heart rate tachy/regular, lungs are clear and dim bilaterally, BP elevated see flowsheets, ENDS BREAKAGE CLERK Jojo Kessler made aware. Pt having abd distension with pain upon palpation. Pt stating that's my bladder , pt states that she has been voiding. Jojo Kessler also aware of abd distention. Pt is on IVF, and not tolerating clears. Pt is voiding to bathroom. Environment is safe and safety precautions maintained. * Francisco Espino MD - 07/05/2024 7:24 AM EST Images from the original note were not included. CHIEF COMPLAINT Nausea and Vomiting HISTORY OF PRESENT ILLNESS Historian: Patient and EMS Personnel Limitations: None Lynne Brown is a 39 year old female with history of type 1 diabetes and prior hospitalizations for DKA who presents to the emergency department brought in by EMS for decreased responsiveness, elevated blood glucose, and nausea. Her 8-year-old son called EMS this morning when she was less responsive than normal. EMS found her with significantly elevated blood glucose in the 300s, hypertensive, minimally responsive. On my exam, she arouses to voice and is oriented to self, time, and situation. She reports beginning to feel ill yesterday afternoon with general malaise and nausea. Her current symptoms are similar to previous episodes of DKA. Past Medical History: Diagnosis Date CYST 01/2010 on wrist Depression Diabetes mellitus Gastroparesis Other and unspecified anemias Sickle-cell disease, unspecified (CMS/HCC) TRAIT only Unspecified mental or behavioral problem Past Surgical History: Procedure Laterality Date DELIVERY ONLY, WITH CARE EXCIS PRIMARY GANGLION WRIST 727. Dr Sood ORAL SURGERY PROCEDURE MTE Previous Medications AMITRIPTYLINE (ELAVIL) 25 MG ORAL TAB Take 25 mg by mouth at bedtime. ASPIRIN 81 MG ORAL CHEW TAB Chew 1 Tablet (81 mg total) daily. ATORVASTATIN (LIPITOR) 40 MG ORAL TAB Take 1 Tablet (40 mg total) by mouth at bedtime. BLOOD GLUCOSE MONITORING SUPPL (RELION PREMIER CLASSIC) DOES NOT APPLY DEVICE 1 Kit once for 1 dose. FERROUS SULFATE (IRON) 325 (65 FE) MG ORAL TAB Take 1 Tablet (325 mg total) by mouth every 48 hours. INSULIN ASPART (NOVOLOG FLEXPEN) 100 UNIT/ML SUBCUTANEOUS SOLUTION PEN-INJECTOR Inject 5 Units subcutaneously as directed. Novolog Flexpens 5 units with meals and correction factor 50, target 150 as your were on previously INSULIN GLARGINE (LANTUS SOLOSTAR) 100 UNIT/ML SUBCUTANEOUS SOLUTION PEN- INJECTOR Inject 16 Units subcutaneously at bedtime. LISINOPRIL (PRINIVIL) 20 MG ORAL TAB Take 1 Tablet (20 mg total) by mouth once daily every morning. METOPROLOL SUCCINATE (TOPROL XL) 100 MG ORAL TABLET SR 24 HR Take 1 Tablet (100 mg total) by mouth daily. Do not crush or chew RELION LANCETS MICRO-THIN 33G DOES NOT APPLY MISC 1 Lancet 4 times a day before meals and at bedtime. Review of patient's allergies indicates: Ondansetron Hcl Rash, Itching Family History Problem Relation Name Age of Onset Hypertension Father Social History Socioeconomic History Marital status: Significant [...] of Paying Living Expenses: Hard Food Insecurity: No Food Insecurity (06/26/2024) Hunger Vital Sign Worried About Running Out of Food in the Last Year: Never true Ran Out of Food in the Last Year: Never true Transportation Needs: No Transportation Needs (06/26/2024) PRAPARE - Transportation Lack of Transportation (Medical): No Lack of Transportation (Non-Medical): No Social Connections: Moderately Isolated (06/26/2024) Social Connection and Isolation Panel [NHANES] Frequency of Communication with Friends and Family: More than three times a week Frequency of Social Gatherings with Friends and Family: Twice a week Attends Zoroastrianism Services: Never Active Member of Clubs or Organizations: No Attends Club or Organization Meetings: Never Marital Status: Living with partner Intimate Partner Violence: Not At Risk (06/26/2024) Humiliation, Afraid, Rape, and Kick questionnaire Fear of Current or Ex-Partner: No Emotionally Abused: No Physically Abused: No Sexually Abused: No Housing Stability: Low Risk (06/26/2024) Housing Stability Vital Sign Unable to Pay for Housing in the Last Year: No Number of Times Moved in the Last Year: 0 Homeless in the Last Year: No ED Vitals Date and Time Temp Pulse BP Patient Position Resp SpO2 O2 Delivery Method O2 Flow Rate (L/min) User 07/05/24 1300 -- -- -- -- -- 99 % -- -- JS 07/05/24 1300 -- 123 182/116 -- 16 -- -- -- DS 07/05/24 1200 -- 127 199/129 -- 14 -- -- -- DS 07/05/24 1130 -- 121 190/129 -- 15 99 % -- -- JS 07/05/24 1100 -- 121 195/129 -- 17 99 % -- -- DS 07/05/24 1000 -- 114 148/103 -- 16 99 % -- -- DS 07/05/24 0920 -- 117 149/100 -- 12 97 % -- -- JS 07/05/24 0800 -- 119 -- -- 24 -- -- -- DS 07/05/24 0720 98.3 ??F (36.8 ??C) 112 184/121 -- 10 98 % -- -- Nursing notes and vital signs were reviewed Physical Exam Constitutional: Appearance: She is ill-appearing. HENT: Head: Normocephalic and atraumatic. Cardiovascular: Rate and Rhythm: Regular rhythm. Tachycardia present. Pulmonary: Effort: No respiratory distress. Breath sounds: Normal breath sounds. Abdominal: Palpations: Abdomen is soft. Tenderness: There is abdominal tenderness. There is no guarding or rebound. Skin: General: Skin is dry. Neurological: General: No focal deficit present. Mental Status: She is alert. Results Procedure Component Value Ref Range Date/Time POC EPOC BMP w/HH [[id number]] (Abnormal) Collected: 07/05/24 1312 Specimen: Blood, Venous Updated: 07/05/24 1315 Sodium POC 140 136 - 145 mmol/L Potassium POC 4.6 3.5 - 5.1 mmol/L Chloride POC 104 96 - 111 mmol/L Ionized Calcium POC 5.2 3.7 - 5.9 mg/dL Glucose POC 354 74 - 100 mg/dL BUN POC 24 9 - 23 mg/dL Creatinine POC 1.02 0.50 - 0.80 mg/dL TCO2 POC 27.7 20 - 31 mmol/L HGB POC 11.8 12 - 16 g/dL HCT POC 35 35 - 45 % POC TELLERS SUPERVISOR Yamini MORSEY POC EPO - BMP no lactate [[id number]] Specimen: Blood, Venous POC Blood Glucose [[id number]] Lactic Acid [[id number]] (Normal) Collected: 07/05/24 1117 Specimen: Blood, Venous Updated: 07/05/24 1143 Lactic Acid 1.6 0.5 - 2.0 mmol/L Urine Tox Screen [[id number]] (Abnormal) Collected: 07/05/24 1036 Specimen: Urine Updated: 07/05/24 1111 Amphetamines, Urine Not Detected Not Detected Barbiturates, Urine Not Detected Not Detected Benzodiazepines, Urine Not Detected Not Detected Cannabinoids, Urine Detected Not Detected Cocaine, Urine Not Detected Not Detected Methadone, Urine Not Detected Not Detected Opiates, Urine Not Detected Not Detected Phencyclidines, Urine Not Detected Not Detected Buprenorphine, Urine Not Detected Not Detected Alcohol, Urine Not Detected Not Detected Fentanyl, Urine Not Detected Not Detected Narrative: Urine Drug Screen testing provides a preliminary analytical result. Results are not confirmed and are for Medical purposes only. Limits of detections Cutoff Values Amphetamine 1000 ng/mL Barbiturates 200 ng/mL Benzodiazepines 200 ng/mL Cocaine 300 ng/mL Cannabinoids 50 ng/mL Opiates 300 ng/mL Phencyclidine 25 ng/mL Methadone 300 ng/mL Buprenorphine 5 ng/mL Alcohol 50 ng/mL Fentanyl 1 ng/mL Urinalysis, Microscopy and Culture if Indicated [[id number]] (Abnormal) Collected: 07/05/24 1036 Specimen: Urine, Clean Catch Updated: 07/05/24 1051 Color, Urine Colorless Colorless, Yellow, Straw, Dolly, Light Yellow, Dark-Yellow Clarity, Urine Clear Clear Glucose, Urine >1000 Normal mg/dL Bilirubin, Urine Negative Negative mg/dL Ketones, Urine 10 Negative mg/dL Specific [place], Urine 1.012 1.015 - 1.025 Blood, Urine Negative Negative mg/dL pH, Urine 6.5 5.0 - 9.0 Protein, Urine 100 Negative to 10 mg/dL Urobilinogen, Urine Normal Normal mg/dL Nitrite, Urine Negative Negative Leukocytes, Urine Negative Negative WBC/uL Bacteria, Urine 1+ None Seen /HPF Mucus, Urine 1+ None Seen /LPF WBC, Urine 1 <=3 /HPF RBC, Urine 4 <=2 /HPF Squamous Epithelial, Urine 15 <=20 /LPF Hyaline Casts, Urine 3 <=1 /LPF POC Urine [[id number]] Collected: 07/05/24 103 Specimen: Urine Updated: 07/05/24 1040 , Urine POC Negative Negative Internal Q.C. Pass Test Lot # and Exp Date [id number] 2024-12-16 Lot # /Exp Date Just In Case - Red Tube [[id number]] Collected: 07/05/24813 Specimen: Blood, Venous Updated: 07/05/24 1000 Narrative: The following orders were created for panel order Just In Case - Red Tube. Procedure Abnormality Status --------- ------ Just In Case - Red[[id number]] Final result Please view results for these tests on the individual orders. Just In Case - Red [[id number]] Collected: 07/05/24813 Specimen: Blood, Venous Updated: 07/05/24 1000 Hold Specimen N/A Comprehensive Metabolic Panel [[id number]] (Abnormal) Collected: 07/05/24813 Specimen: Blood, Venous Updated: 07/05/24 0916 Sodium 137 136 - 145 mmol/L Potassium 4.6 3.5 - 5.1 mmol/L Chloride 99 98 - 107 mmol/L Carbon Dioxide 23 20 - 31 mmol/L Anion Gap 15 5 - 15 mmol/L Glucose 294 74 - 100 mg/dL BUN 26 9 - 23 mg/dL Creatinine 1.09 0.55 - 1.02 mg/dL BUN/Creatinine Ratio 23.85 Calcium 10.6 8.3 - 10.6 mg/dL Protein, Total 8.9 5.7 - 8.2 g/dL Comment: Repeated and Verified. Albumin 5.1 3.2 - 4.8 g/dL AST 66 <=34 U/L ALT 89 10 - 49 U/L ALK Phos 152 46 - 116 U/L Bilirubin, Total 0.4 0.3 - 1.2 mg/dL Globulin 3.8 g/dL Albumin Globulin Ratio 1.34 eGFR 66 >=60 mL/min/1.73m*2 Non Legal Blood Alcohol [[id number]] Collected: 07/05/24813 Specimen: Blood, Venous Updated: 07/05/24914 Alcohol, Medical Not detected Lipase [[id number]] (Abnormal) Collected: 07/05/24813 Specimen: Blood, Venous Updated: 07/05/24908 Lipase 96 12 - 53 U/L Magnesium [[id number]] (Normal) Collected: 07/05/24813 Specimen: Blood, Venous Updated: 07/05/24908 Magnesium 1.9 1.6 - 2.6 mg/dL Phosphorus [[id number]] (Normal) Collected: 07/05/24813 Specimen: Blood, Venous Updated: 07/05/24908 Phosphorus 4.8 2.4 - 5.1 mg/dL Beta Hydroxybutyrate [[id number]] (Abnormal) Collected: 07/05/24813 Specimen: Blood, Venous Updated: 07/05/24908 Beta-hydroxybutyrate 2.36 <0.30 mmol/L Comment: > 2.0 mmol/L Ketoacidosis The BHB level may be used to demonstrate the resolution of ketoacidosis. Generally the patient is managed to a BHB level of < 1.0 mmol/L. Lactic Acid with Reflex [[id number]] (Abnormal) Collected: 07/05/24813 Specimen: Blood, Venous Updated: 07/05/24855 Lactic Acid 2.6 0.5 - 2.0 mmol/L Complete Blood Count with Auto Differential [[id number]] (Abnormal) Collected: 07/05/24813 Specimen: Blood, Venous Updated: 07/05/24836 Narrative: The following orders were created for panel order Complete Blood Count with Auto Differential. Procedure Abnormality Status --------- ------ Complete Blood Count wit...[[id number]] Abnormal Final result Please view results for these tests on the individual orders. Complete Blood Count with Auto Differential [[id number]] (Abnormal) Collected: 07/05/24813 Specimen: Blood, Venous Updated: 07/05/24836 WBC 8.40 4.23 - 10.80 10*3/uL RBC 4.21 4.20 - 5.40 10*6/uL HGB 11.4 12.0 - 16.0 g/dL HCT 33.9 35.0 - 45.0 % MCV 80.5 80.0 - 96.0 fL MCH 27.1 27.0 - 32.0 pg MCHC 33.6 32.0 - 37.0 g/dL RDW 13.2 11.5 - 14.5 % Platelet 496 150 - 400 10*3/uL Comment: Repeated and verified MPV 10.1 9.7 - 13.2 fL Neutrophils % 86.9 % Lymphocytes % 10.8 % Monocytes % 1.4 % Eos % 0.0 % Basophils % 0.4 % Immature Granulocytes % 0.50 % Abs Neutrophils 7.30 1.40 - 7.70 10*3/uL Abs Lymphocytes 0.91 1.10 - 4.00 10*3/uL Abs Monocytes 0.12 0.10 - 1.10 10*3/uL Abs Eosinophils 0.00 0.00 - 0.70 10*3/uL Abs Basophils 0.03 0.00 - 0.20 10*3/uL Abs Immature Granulocytes 0.04 0.00 - 0.03 10*3/uL Venous Blood Gas [[id number]] Collected: 07/05/24813 Specimen: Blood, Venous Updated: 07/05/24823 Temperature, VBG 37.0 C pH (T), VBG 7.350 7.220 - 7.460 pCO2 (T), VBG 44.0 29.0 - 58.0 mmHG pO2 (T), VBG 38.0 27.0 - 60.0 mmHG tHb, VBG 12.0 12.0 - 18.0 g/dL O2 Hb, VBG 65.4 60.0 - 90.0 % Met Hb, VBG 0.0 0.0 - 2.0 % Hct, VBG 36.0 % BASE, VBG -1.5 -2.5 - 2.5 mmol/L cHCO3- (P,st), VBG 24.3 19.0 - 25.0 mmol/L sO2, VBG 67.6 60.0 - 90.0 % STAT FLUVID Respiratory Multiplex PCR [[id number]] (Normal) Collected: 07/05/24724 Specimen: Swab from Nasopharyngeal Updated: 07/05/24 0809 COVID-19 SARS-CoV2/RT PCR Negative Negative Influenza A by PCR Negative Negative Influenza B by PCR Negative Negative RSV by PCR Negative Negative POC Glucose Level [[id number]] (Abnormal) Collected: 07/05/24 0734 Specimen: Blood Updated: 07/05/2435 Glucose POC 257 74 - 100 mg/dL POC TELLERS SUPERVISOR Yamini DUFFY POC GLUCOSE LEVEL (COLLECT) Once [[id number]] Specimen: Blood, Capillary These results were reviewed by me IMAGING CT Brain WO Contrast Final Result There is no acute intracranial abnormality. Electronically signed by: Jose Nolen MD 07/05/2024 8:28 AM EKG ELECTROCARDIOGRAM (ECG/EKG)-HOSPITAL Result Value Ref Range Status Ventricular Rate 118 BPM Incomplete Atrial Rate 118 BPM Incomplete P-R Interval 148 ms Incomplete QRS Duration 78 ms Incomplete Q-T Interval 338 ms Incomplete Q2C Calculation(Bezet) 473 ms Incomplete P [place] 50 degrees Incomplete R [place] 61 degrees Incomplete T [place] 61 degrees Incomplete Diagnosis Line Incomplete Value: Sinus tachycardia Septal infarct (cited on or before 25-JUN-2024) Abnormal ECG When compared with ECG of 25-JUN-2024 15:20, No significant change was found ED Medication Administration from 07/05/2024 7:13 AM to 07/05/2024 1:39 PM Date/Time Order Dose Route Action 07/05/2024 7:41 AM EST metoclopramide (REGLAN) injection 10 mg 10 mg Intravenous Given 07/05/2024 7:35 AM EST lactated ringers bolus 1,000 mL 1,000 mL Intravenous New Bag 07/05/2024 9:51 AM EST lactated ringers bolus 1,000 mL 0 mL Intravenous Stopped 07/05/2024 9:08 AM EST lactated ringers bolus 1,000 mL 1,000 mL Intravenous New Bag 07/05/2024 10:27 AM EST lactated ringers bolus 1,000 mL 0 mL Intravenous Stopped 07/05/2024 11:25 AM EST lisinopril (PRINIVIL) tablet 20 mg 0 mg Oral RX Held 07/05/2024 11:25 AM EST metoprolol succinate (TOPROL XL) tablet 100 mg 0 mg Oral RX Held 07/05/2024 11:53 AM EST droperidol (INAPSINE) injection 0.625 mg 0.625 mg Intravenous Given 07/05/2024 12:27 PM EST lactated ringers bolus 500 mL 500 mL Intravenous New Bag MEDICAL DECISION MAKING/ED COURSE 39-year-old female presenting with nausea, vomiting, and change in level of alertness. Differentialdiagnosis includes DKA, gastroparesis, hyperemesis, pancreatitis, other hepatobiliary pathology. Her abdomen is soft without peritoneal signs on exam. ED Course as of 07/05/24 1339 Francisco Espino's Documentation Sun Jul 05, 2024 0825 pH (T), VB.350 0917 LACTIC ACID(!): 2.6 0932 BUN(!): 26 0932 CREATININE(!): 1.09 0932 AST(!): 66 0932 ALT(!): 89 0932 ALK.PHOS.(!): 152 0932 LIPASE(!): 96 1144 LACTIC ACID: 1.6 1256 On reevaluation, she is alert and more comfortable appearing. She has tolerated a small amountof PO. States that since her last visit to the emergency department she was instructed to discontinue her insulin pump and has been using 16 units of long-acting insulin at night and followed by scheduled insulin with meals. 1336 WBC COUNT: 8.40 Labs are not consistent with DKA. pH 7.35. I treated her nausea with Reglan and droperidol, after which she tolerated a very small amount of p.o. but remained tachycardic with heart rate in the 120s despite 2L IV fluids. She does not have fever or leukocytosis to suggest sepsis. I suspect mixed picture of uncontrolled diabetes, ketosis, gastroparesis. CLINICAL IMPRESSION Final diagnoses: [R73.9] Hyperglycemia (Primary) [R11.10] Acute vomiting [E10.65] Type 1 diabetes mellitus with hyperglycemia Condition: Savita Espino MD This documentation was created with the aid of voice recognition software. Please understand any inadvertent spike maker errors not identified and corrected by the author. Associated attestation - Drake Vega MD - 07/05/2024 1:41 PM EST I saw and evaluated the patient, participating in the randle portions of the service. I reviewed the resident's note. I agree with the resident's findings and plan. documented in this encounter H&P Notes * Yuli Nair MD - 07/05/2024 2:03 PM EST HISTORY & PHYSICAL NAME: Lynne Brown : 1985 AGE: [age] year old MANSOOR: [id number] ROOM: [place] [address] ADMIT DATE: 07/05/2024 ADMITTING PROVIDER: uYli Nair MD Primary care physician: CELSA PRESTON CHIEF COMPLAINT: Nausea Vomiting HISTORY OF PRESENT ILLNESS: This is a 39 year old female with IDDM1, hx of DKA,, gastroparesis, sickle cell trait, CAD, HTN, Hyperlipidemia who presents with decreased responsiveness and nausea and vomiting. She was recently admitted to the CDU for hypoglycemia due to pump misadministration of insulin from 07/26- 06/26. She was also admitted here 01/18- for AMS, hyperglycemia/early DKA, cardiomyopathy; 03/03- to ICU for DKA, found to have delayed gastric emptying. She reports that she was in her USOH until yesterday afternoon with malaise and nausea. She was found to be less responsive this AM than usual and 911 was called. In the ED she was found to have BS 328 with elevated beta hydroxybutyrate but neither as high as when she has required ICU admission in the past. She was given reglan which usually works for her and did help today, She was then given droperidol and vomited shortly thereafter. At time of my eval sheis acutely nauseated, no abd pain. She reports using cannabis REVIEW OF SYSTEMS: History obtained from chart review and the patient All other systems reviewed and are negative. PAST MEDICAL HISTORY: Diagnosis Date delivery delivered 07/24/2016 CYST 01/2010 on wrist Depression Diabetes mellitus Diabetic ketoacidosis with coma associated with type 1 diabetes mellitus ([facility]) 06/28/2023 Gastroparesis History of 07/31/2016 Overview: 12/05/04 26 week delivery for abruption- Classical C/D (OP report in [facility] - reviewed); Will Need RCD as NOT a TOLAC candidate - typically recommended between 36-37-6/7 wks EGA (however willneed to consider DM control) and risk for RDS Desires BTL (understands limitations with delivery @ [facility] [place] at the time of a CD) Option for transfer of care discussed but patient declines Other and unspecified anemias Pyelonephritis 11/25/2023 Sickle-cell disease, unspecified ([facility]) TRAIT only Unspecified mental or behavioral problem UTI (urinary tract infection) 11/24/2023 PAST SURGICAL HISTORY: Past Surgical History: Procedure Laterality Date DELIVERY ONLY, WITH CARE EXCIS PRIMARY GANGLION WRIST 727.410 Dr Sood ORAL SURGERY PROCEDURE MTE SOCIAL [...] of Paying Living Expenses: Hard Food Insecurity: No Food Insecurity (06/26/2024) Hunger Vital Sign Worried About Running Out of Food in the Last Year: Never true Ran Out of Food in the Last Year: Never true Transportation Needs: No Transportation Needs (06/26/2024) PRAPARE - Transportation Lack of Transportation (Medical): No Lack of Transportation (Non-Medical): No Social Connections: Moderately Isolated (06/26/2024) Social Connection and Isolation Panel [NHANES] Frequency of Communication with Friends and Family: More than three times a week Frequency of Social Gatherings with Friends and Family: Twice a week Attends Zoroastrianism Services: Never Active Member of Clubs or Organizations: No Attends Club or Organization Meetings: Never Marital Status: Living with partner Intimate Partner Violence: Not At Risk (06/26/2024) Humiliation, Afraid, Rape, and Kick questionnaire Fear of Current or Ex-Partner: No Emotionally Abused: No Physically Abused: No Sexually Abused: No Housing Stability: Low Risk (06/26/2024) Housing Stability Vital Sign Unable to Pay for Housing in the Last Year: No Number of Times Moved in the Last Year: 0 Homeless in the Last Year: No FAMILY HISTORY: Reviewed and negative for any diseases related to today's diagnosis Problem Relation Age of Onset Hypertension Father ALLERGIES: Review of patient's allergies indicates: Ondansetron Hcl Rash, Itching MEDICATIONS: Prior to Admission Medications Prescriptions Last Dose Informant Patient Reported? Taking? Blood Glucose Monitoring Suppl (RELION PREMIER CLASSIC) Does not apply Device No No Si Kit once for 1 dose. Insulin Aspart (NOVOLOG FLEXPEN) 100 UNIT/ML Subcutaneous Solution Pen-injector Unknown Yes Yes Sig: Inject 5 Units subcutaneously as directed. Novolog Flexpens 5 units with meals and correction factor 50, target 150 as your were on previously RELION LANCETS MICRO-THIN 33G Does not apply Misc No No Si Lancet 4 times a day before meals and at bedtime. Specialty Vitamins Products (NERVIVE NERVE RELIEF PO) 07/03/2024 Yes Yes Sig: Take 1 Tablet by mouth daily. amitriptyline (ELAVIL) 25 MG Oral Tab 07/03/2024 Self Yes Yes Sig: Take 25 mg by mouth at bedtime. aspirin 81 MG Oral Chew Tab 07/03/2024 No Yes Sig: Chew 1 Tablet (81 mg total) daily. atorvastatin (LIPITOR) 40 MG Oral Tab 07/03/2024 No Yes Sig: Take 1 Tablet (40 mg total) by mouth at bedtime. ferrous sulfate (IRON) 325 (65 Fe) MG Oral Tab 07/04/2024 Self, Pharmacy No Yes Sig: Take 1 Tablet (325 mg total) by mouth every 48 hours. Patient taking differently: Take 325 mg by mouth twice a day. insulin glargine (LANTUS SOLOSTAR) 100 UNIT/ML Subcutaneous Solution Pen- injector 07/04/2024 Yes Yes Sig: Inject 16 Units subcutaneously at bedtime. lisinopril (PRINIVIL) 20 MG Oral Tab 07/05/2024 No Yes Sig: Take 1 Tablet (20 mg total) by mouth once daily every morning. metoprolol succinate (TOPROL XL) 100 MG Oral TABLET SR 24 HR 07/05/2024 No Yes Sig: Take 1 Tablet (100 mg total) by mouth daily. Do not crush or chew Facility-Administered Medications: None IMMUNIZATIONS: Immunization History Administered Date(s) Administered DTP 1985, 1985, 1985, 09/01/1987 MMR 09/01/1987 Polio - OPV 1985, 1985, 09/01/1987, 02/28/1989 Rhogam 09/14/2016 Tb Intradermal 05/05/2001 Tdap 07/15/2015 PHYSICAL EXAMINATION: VITAL SIGNS: Temp: 98.3 ??F (36.8 ??C) BP: (!) 182/116 HR: 123 RR: 16 SpO2: 99 % GENERAL APPEARANCE: alert, well appearing, and in no distress, oriented to person, place, and time,normal appearing weight, acyanotic, in no respiratory distress, and well hydrated. CVS EXAM: normal rate, regular rhythm, normal S1, S2, no murmurs, rubs, clicks or gallops. CHEST EXAM: clear to auscultation, no wheezes, rales or rhonchi, symmetric air entry, no tachypnea,retractions or cyanosis. ABDOMINAL EXAM: soft, nontender, nondistended, no masses or organomegaly bowel sounds normal. EXAM OF EXTREMITIES: feet normal, good pulses, normal color, temperature and sensation NEUROLOGICAL EXAM: alert, oriented, normal speech, no focal findings or movement disorder noted, motor and sensory grossly normal bilaterally. SKIN EXAM - warm, brown dry EKG: Reviewed by Yuli Nair MD unchanged from previous tracings, sinus rate 118, nl axis . LABS: Labs in Last 24 hours Lab Components 07/05/24 0814 07/05/24 1312 07/05/24 1315 WBC 8.40 -- -- RBC 4.21 -- -- HGB 11.4* -- -- HCT 33.9* -- -- PCT 496* -- -- NEUT 86.9 -- -- LYMPH 10.8 -- -- MONOS 1.4 -- -- EOS 0.0 -- -- GLU 294* -- 328* BUN 26* -- 22 CRS 1.09* -- 0.92 NA 137 -- 138 K 4.6 -- 4.5 CH 99 -- 101 AGPK 15 -- 12 CA 10.6 -- 9.8 MG 1.9 -- -- ALB 5.1* -- -- TP 8.9* -- -- TBIL 0.4 -- -- AST 66* -- -- ALT 89* -- -- ALK 152* -- -- LIP 96* -- -- POCGLU -- 354* -- ABG results None IMAGING: CT Brain WO Contrast Final Result There is no acute intracranial abnormality. Electronically signed by: Jose Nolen MD 07/05/2024 8:28 AM PROBLEM LIST: Principal Problem: Intractable nausea and vomiting (POA: Yes) ASSESSMENT AND PLAN: This is a 39 year old female with IDDM1, hx of DKA,, gastroparesis, sickle cell trait, CAD, HTN, Hyperlipidemia admitted on 07/05/2024 with intractable nausea in setting of IDDM1 with hx hypoglycemia/DKA. Intractable nausea/vomiting Hx gastroparesis Hx cyclic vomiting syndrome Do not suspect an acute intraabdominal process, and biofire is negative. - symptomatic care: prns for now, consider scheduling if not improved overnight - IVF as below - advised to stop using cannabis IDDM1 with hyperglycemia, hx DKA Elevated beta hydroxybutyrate but BS only in 2-300s. At high risk of hypo/hyperglycemia. - D5 NS at 100 for now, adjust prn - Cont Lantus at 10u for SCREEN OPERATOR 16u - ISS q6h until taking better po Sickle cell trait CAD HTN Hyperlipidemia Not acute. BP running high in ED, but she did not take her SCREEN OPERATOR meds - resume SCREEN OPERATOR meds FEN: clears, advance as tolerated; D5NS Code: Full DVT ppx: SCDs Disp: Anticipate discharge when acute issues resolved, likely in <2 midnights. NECESSITY OF MEDICAL SERVICES: The patient's acute signs and symptoms include: nausea . The patient's relevant comorbidities include: IDDM1, hx of DKA,, gastroparesis, sickle cell trait, CAD, HTN, Hyperlipidemia The patient will receive services that include: IV fluids, IV medications, and intensive nursing care. The patient's risk of leaving the hospital includes: increased risk of mortality, increased risk ofmorbidity, end organ injury, and risk of further decompensation. There are no questions and answers to display. documented in this encounter ED Notes * Maco Kc RN - 07/05/2024 5:21 PM EST Per provider Obdulia Nair MD, patient able to come off cardiac monitoring for transport. * Maco Kc RN - 07/05/2024 4:45 PM EST Remains resting in bed, pink, warm, dry, even respirations. No acute distress. Denies needs, call martinez in reach. * Maco Kc RN - 07/05/2024 4:12 PM EST Remains alert/awake, pink, warm, dry, even respirations. No acute distress. Denies needs, call bellin reach. * Maco Kc RN - 07/05/2024 2:16 PM EST Obdulia Nair MD at bedside. * Maco Kc RN - 07/05/2024 1:45 PM EST Remains resting in bed, alert/awake, pink, warm, dry, even respirations. No acute distress. Denies needs, call martinez in reach. * Maco Kc RN - 07/05/2024 12:11 PM EST Had x1 episode of vomiting right after administration of droperidol. Reports mild improvement of nausea since then. Noted to still be tachy in the 120s, provider aware. * ENMANUEL Devine - 07/05/2024 11:09 AM EST Food tray ordered * ENMANUEL Devine - 07/05/2024 11:07 AM EST Patient provided a menu for lunch * ENMANUEL Devine - 07/05/2024 10:36 AM EST Patient ambulated from bathroom to stretcher with this termite technician. Patient gave urine sample. * ENMANUEL Devine - 07/05/2024 10:36 AM EST Urine specimen obtained while maintaining proper PPE. Specimen processed and sent to lab.. * Maco Kc RN - 07/05/2024 10:34 AM EST Ambulated to bathroom with slow but steady gait * ENMANUEL Devine - 07/05/2024 10:29 AM EST Patient ambulated with this termite technician to the bathroom. O2 99% RA, HR 120 while walking. * Maco Kc RN - 07/05/2024 10:01 AM EST Remains resting in bed, alert/awake, pink, warm, dry, even respirations. No acute distress. Denies needs, call martinez in reach. * Maco Kc RN - 07/05/2024 9:01 AM EST Reports improvement of nausea after being medicated per MAR. * Maco Kc RN - 07/05/2024 7:58 AM EST Student provider at bedside for ultrasound IV. * Maco Kc RN - 07/05/2024 7:22 AM EST Weakness, N/V, over past few days. Type I diabetic. Alert/awake, pink, warm, dry, even respirations. documented in this encounter Miscellaneous Notes * Care Plan Note - Jory Reyes RN - 07/06/2024 3:30 PM EST Identify Barriers To Meeting Goals/Advancing Plan Of Care: pending clinical course Teaching needs/Teaching status: receptive to teaching, diabetes, diet, discharge Out of Bed Activity This Shift (Include Assistance Required): oob indep Discharge Needs: pending Shift Event Update: A+OX4. Denies pain or n/v. Poor appetite. Ivf infusing, changed to NS. Voiding.Up indep. Dr. Isidro in to see pt. Diet advanced. Will possibly discharge later today if stable. 1400 pt continues to deny n/v or pain. Stable for discharge. See d/c note. Problem: Pain - Adult Goal: Verbalizes/displays adequate comfort level or baseline comfort level Description: INTERVENTIONS: 1. Encourage pt to monitor pain and request assistance 2. Assess pain using appropriate pain scale 3. Administer analgesics based on type and severity of pain and evaluate response 4. Implement non-pharmacological measures as appropriate and evaluate response 5. Consider cultural and social influences on pain and pain management 6. Notify Provider if interventions unsuccessful or patient reports new pain Outcome: Progressing Flowsheets (Taken 07/06/2024 3012) Addressed this shift: Verbalizes/displays adequate comfort level or baseline comfort level: Encourage patient to monitor pain and request assistance Administer analgesics based on type and severity of pain and evaluate response Assess pain using appropriate pain scale Implement non-pharmacological measures as appropriate and evaluate response Problem: Gastrointestinal - Adult Goal: Minimal or absence of nausea and vomiting Description: INTERVENTIONS: 1. Administer IV fluids as ordered to ensure adequate hydration 2. Maintain NPO status until nausea and vomiting are resolved 3. Nasogastric tube to low intermittent suction as ordered 4. Administer ordered antiemetic medications as needed 5. Provide nonpharmacologic comfort measures as appropriate 6. Advance diet as tolerated, if ordered 7. Nutrition consult to assist patient with adequate nutrition and appropriate food choices Outcome: Progressing * Discharge Note - Jory Reyes RN - 07/06/2024 3:30 PM EST Discharge instructions reviewed with pt. Iv's removed. Pt discharged home via uber. * Care Plan Note - Maryjane Ambriz RN - 07/06/2024 2:25 AM EST Identify Barriers To Meeting Goals/Advancing Plan Of Care: Pain management, maintain adequate oxygenation, Q 6 hour BG, IV fluids, IV reglan, cardiac monitoring. Teaching needs/Teaching status: Medication education, safety education validated. Discharge Needs: Pending clinical course. Out of Bed Activity This Shift (Include Assistance Required): Independent. Shift Event Update: Patient alert and oriented x 4, denies pain or discomfort. Patient cooperative with care and nursing assessments. All nursing assessments as documented, medications administered per MAR. Patient BG continues elevated, coverage administered per sliding care and provider made aware both times; per sliding scale order. Received order to administer extra coverage this morning. Pt.checked hourly for safety, call martinez within patient's reach; bed in low position. Change of shift report given to oncoming nurse. Problem: Pain - Adult Goal: Verbalizes/displays adequate comfort level or baseline comfort level Description: INTERVENTIONS: 1. Encourage pt to monitor pain and request assistance 2. Assess pain using appropriate pain scale 3. Administer analgesics based on type and severity of pain and evaluate response 4. Implement non-pharmacological measures as appropriate and evaluate response 5. Consider cultural and social influences on pain and pain management 6. Notify Provider if interventions unsuccessful or patient reports new pain Outcome: Progressing Flowsheets (Taken 07/06/2024223) Addressed this shift: Verbalizes/displays adequate comfort level or baseline comfort level: Encourage patient to monitor pain and request assistance Administer analgesics based on type and severity of pain and evaluate response Consider cultural and social influences on pain and pain management Assess pain using appropriate pain scale Implement non-pharmacological measures as appropriate and evaluate response Problem: Safety Adult - Fall Goal: Free from fall injury Description: INTERVENTIONS: 1. Assess patient frequently for physical needs. 2. Identify cognitive and physical deficits and behaviors that affect risk of falls. 3. [place] fall precautions as indicated by assessment. 4. Educate patient/family on patient safety, including physical limitations. 5. Instruct patient to call for assistance with activity based on assessment. 6. Modify environment to reduce risk of injury. 7. Consider use of assistive mobility devices. 8. Consider OT/PT consult to assist with strengthening/mobility. Outcome: Progressing Flowsheets (Taken 07/06/2024223) Addressed this shift: Free from fall injury: Assess patient frequently for physical needs Instruct patient to call for assistance with activity based on assessment Identify cognitive and physical deficits and behaviors that affect risk of falls Educate patient/family on patient safety, including physical limitations Modify environment to reduce risk of injury Problem: Gastrointestinal - Adult Goal: Minimal or absence of nausea and vomiting Description: INTERVENTIONS: 1. Administer IV fluids as ordered to ensure adequate hydration 2. Maintain NPO status until nausea and vomiting are resolved 3. Nasogastric tube to low intermittent suction as ordered 4. Administer ordered antiemetic medications as needed 5. Provide nonpharmacologic comfort measures as appropriate 6. Advance diet as tolerated, if ordered 7. Nutrition consult to assist patient with adequate nutrition and appropriate food choices Outcome: Progressing Flowsheets (Taken 07/06/2024223) Addressed this shift: Minimal or absence of nausea and vomiting: Administer IV fluids as ordered to ensure adequate hydration Provide nonpharmacologic comfort measures as appropriate Administer ordered antiemetic medications as needed Advance diet as tolerated, if ordered Problem: Metabolic/Fluid and Electrolytes - Adult Goal: [...] restrictions as appropriate Outcome: Progressing Flowsheets (Taken 07/06/2024223) Addressed this shift: Electrolytes maintained within normal limits: Monitor labs and assess patient for signs and symptoms of electrolyte imbalances Monitor response to electrolyte replacements, including repeat lab results as appropriate Instruct patient on fluid and nutrition restrictions as appropriate Administer electrolyte replacement as ordered Fluid restriction as ordered * Arrival Note - Renetta Harding RN - 07/05/2024 6:38 PM EST Pt arrived to unit from ED. Pt oriented to room and call martinez and belongings within reach. Safety precautions maintained. * bell/MACIEL SCREEN OPERATOR Medication Note - Daniella Young PharmD - 07/05/2024 1:41 PM EST Adelaida/MACIEL RIBEIRO Medication Note Medication Review Completed: Prior to Admission Medication Information Obtained From: Patient, Prescription Bottle(s), and Surescripts Recently Completed Medications: None Significant Medication Changes: None PDMP last reviewed by No Data Recorded PDMP Query Date: 07/05/24 PDMP Comments: Patient found but no dispensations found. Compliance Assessment: No Concerns Noted Anticoagulation/Platelet Medications: Aspirin Non-Formulary Medications(no alternative available): None Preferred [facility]acy: [id number] - [place], [place] - [address] [facility] [address] [facility] [address] [facility] [id number] Allergies: Review of patient's allergies indicates: Ondansetron Hcl Rash, Itching Communication to Provider: None Thank you documented in this encounter Plan of Treatment Scheduled Orders Name Type Priority Associated Diagnoses Orde r Schedule POC GLUCOSE LEVEL (COLLECT) Once Point of Care Testing Routine ONCE for 1 Occurrences starting 07/06/2024 until 07/06/2024 documented as of this encounter Procedures Procedure Name Priority Date/Time Associated Diagnosis Comments POC GLUCOSE LEVEL UNSOLICITED RESULTS Routine 07/06/2024 12:44 PM EST BASIC METABOLIC PANEL Routine 07/06/2024 7:02 AM EST COMPLETE BLOOD COUNT WITH AUTO DIFFERENTIAL Routine 07/06/2024 7:02 AM EST COMPLETE BLOOD COUNT WITH AUTO DIFFERENTIAL Routine 07/06/2024 7:02 AM EST POC GLUCOSE LEVEL UNSOLICITED RESULTS Routine 07/06/2024 5:58 AM EST POC GLUCOSE LEVEL UNSOLICITED RESULTS Routine 07/06/2024 12:19 AM EST POC GLUCOSE LEVEL UNSOLICITED RESULTS Routine 07/05/2024 9:19 PM EST POC GLUCOSE LEVEL UNSOLICITED RESULTS Routine 07/05/2024 3:22 PM EST OSMOLALITY STAT 07/05/2024 1:34 PM EST BASIC METABOLIC PANEL STAT 07/05/2024 1:15 PM EST POC EPOC BMP WITH HH Routine 07/05/2024 1:12 PM EST LACTIC ACID FOR BPA STAT 07/05/2024 11:17 AM EST POC URINE STAT 07/05/2024 10:39 AM EST URINALYSIS, REFLEX TO MICROSCOPY AND CULTURE IF INDICATED STAT 07/05/2024 10:36 AM EST DRUG ABUSE SCREEN, URINE STAT 025 10:36 AM EST URINE CULTURE STAT 07/05/2024 10:[address] BRAIN WO CONTRAST STAT 07/05/2024 8:20 AM EST LACTIC ACID WITH REFLEX STAT 07/05/19 25 8:14 AM EST JUST IN CASE TUBES STAT 07/05/2024 8: 14 AM EST BLOOD GAS, VENOUS STAT 07/05/2024 8:1 4 AM EST PHOSPHORUS STAT 07/05/2024 8:14 AM EST MAGNESIUM STAT 07/05/2024 8:14 AM EST LIPASE STAT 07/05/2024 8:14 AM EST COMPREHENSIVE METABOLIC PANEL STAT 07/05/2024 8:14 AM EST BETA HYDROXYBUTYRATE STAT 07/05/2024 8:14 AM EST ALCOHOL, MEDICAL Add On-Routine 07/05/2024 8:14 AM EST JUST IN CASE - RED STAT 07/05/2024 8: 14 AM EST COMPLETE BLOOD COUNT WITH AUTO DIFFERENTIAL STAT 07/05/2024 8:14 AM EST COMPLETE BLOOD COUNT WITH AUTO DIFFERENTIAL STAT 07/05/2024 8:14 AM EST ELECTROCARDIOGRAM (ECG/EKG)-HOSPITAL STAT 07/05/2024 7:42 AM EST Hyperglycemia POC GLUCOSE LEVEL UNSOLICITED RESULTS Routine 07/05/2024 7:34 AM EST RESPIRATORY MULTIPLEX PCR (STAT FLUVID) STAT 07/05/2024 7:25 AM EST documented in this encounter Results * (ABNORMAL) POC Glucose Level (07/06/2024 12:44 PM EST) [facility] Glucose POC 295(H) 74 - 100 mg/dL 07/06/2024 12:45 PM EST EH POC WAIVED TESTING(CLIA# [id number]) POC TELLERS SUPERVISOR GINO CAMP 07/06/2024 12:45 PM EST EH POC WAIVED TESTING(CLIA# [id number]) Blood ENTIRE ANTECUBITAL VEIN / Unknown 07/06/2024 12:44 PM EST 07/06/2024 12:44 PM EST Point Of Care Provider LAB POINT OF CARE TEST DOCKED DEVICE UNSOLICITED RESULTS EH POC WAIVED TESTING(CLIA#[id number]) [address] [place] [id number] * (ABNORMAL) Complete Blood Count with Auto Differential (07/06/2024 7:02 AM EST) [facility] WBC 8.16 4.23 - 10.80 10*3/uL 07/06/2024 7:53 AM [facility] RBC 3.86(L) 4.20 - 5.40 10*6/uL 07/06/2024 7:53 AM [facility] HGB 10.7(L) 12.0 - 16.0 g/dL 07/06/2024 7:53 AM [facility] HCT 29.9(L) 35.0 - 45.0 % 07/06/2024 7:53 AM [facility] MCV 77.5(L) 80.0 - 96.0 fL 07/06/2024 7:53 AM [facility] MCH 27.7 27.0 - 32.0 pg 07/06/2024 7:53 AM [facility] MCHC 35.8 32.0 - 37.0 g/dL 07/06/2024 7:53 AM [facility] RDW 13.1 11.5 - 14.5 % 07/06/2024 7:53 AM [facility] Platelet 495(H) 150 - 400 10*3/uL 07/06/2024 7:53 AM [facility] [facility] Comment:Repeated and verifie d MPV 10.2 9.7 - 13.2 fL 07/06/2024 7:53 AM [facility] Neutrophils % 76.0 % 07/06/2024 7:53 AM [facility] Lymphocytes % 19.0 % 07/06/2024 7:53 AM [facility] Monocytes % 3.8 % 07/06/2024 7:53 AM [facility] Eos % 0.1 % 07/06/2024 7:53 AM [facility] Basophils % 0.7 % 07/06/2024 7:53 AM [facility] Immature Granulocytes % 0.40 % 07/06/2024 7:53 AM [facility] Abs Neutrophils 6.20 1.40 - 7.70 10*3/uL 07/06/2024 7:53 AM [facility] Abs Lymphocytes 1.55 1.10 - 4.00 10*3/uL 07/06/2024 7:53 AM [facility] Abs Monocytes 0.31 0.10 - 1.10 10*3/uL 07/06/2024 7:53 AM [facility] Abs Eosinophils 0.01 0.00 - 0.70 10*3/uL 07/06/2024 7:53 AM [facility] Abs Basophils 0.06 0.00 - 0.20 10*3/uL 07/06/2024 7:53 AM [facility] Abs Immature Granulocytes 0.03 0.00 - 0.03 10*3/uL 07/06/2024 7:53 AM [facility] Blood ENTIRE ANTECUBITAL VEIN / Unknown Venipuncture / Unknown 07/06/2024 7:02 AM EST 07/06/2024 7:18 AM EST Yuli Nair MD LAB BLOOD ORDERABLE S [facility] [address] [place] [address] * (ABNORMAL) Basic Metabolic Panel (07/06/2024 7:02 AM EST) Sodium 137 136 - 145 mmol/L LAB SEROLOGY [facility]ELLICA METHOD 07/06/2024 8:05 AM [facility] Potassium 3.9 3.5 - 5.1 mmol/L LAB SEROLOGY ATELLICA METHOD 07/06/2024 8:05 AM [facility] Chloride 100 98 - 107 mmol/L LAB SEROLOGY ATELLICA METHOD 07/06/2024 8:05 AM [facility] Carbon Dioxide 24 20 - 31 mmol/L LAB SEROLOGY [facility]ELLICA METHOD 07/06/2024 8:05 AM [facility] Anion Gap 13 5 - 15 mmol/L LAB SEROLOGY [facility]ELLICA METHOD 07/06/2024 8:05 AM [facility] Glucose 360(H) 74 - 100 mg/dL LAB SEROLOGY [facility]ELLICA METHOD 07/06/2024 8:05 AM [facility] BUN 17 9 - 23 mg/dL LAB SEROLOGY ATELLICA METHOD 07/06/2024 8:05 AM [facility] Creatinine 1.01 0.55 - 1.02 mg/dL LAB SEROLOGY ATELLICA METHOD 07/06/2024 8:05 AM [facility] Calcium 9.4 8.3 - 10.6 mg/dL LAB SEROLOGY ATELLICA METHOD 07/06/2024 8:05 AM [facility] BUN/Creatinine Ratio 16.83 LAB SEROLOGY ATELLICA METHOD 07/06/2024 8:05 AM [facility] eGFR 73 >=60 mL/min/1.7 3m*2 LAB SEROLOGY ATELLICA METHOD 07/06/2024 8:05 AM [facility] Blood ENTIRE ANTECUBITAL VEIN / Unknown Venipuncture / Unknown 07/06/2024 7:02 AM EST 07/06/2024 7:18 AM EST Yuli Nair MD LAB BLOOD ORDERABLE S Performing Organization Address [facility] Co de Phone Number [facility] [address] [place] [address] * (ABNORMAL) POC Glucose Level (07/06/2024 5:58 AM EST) Glucose POC 371(H) 74 - 100 mg/dL 07/06/2024 5:59 AM EST [facility] POC WAIVED TESTING(CLIA# [id number]) POC TELLERS SUPERVISOR AMBRIZ MARYJANE 07/06/2024 5:59 AM EST [facility] POC WAIVED TESTING(CLIA# [id number]) Blood ENTIRE ANTECUBITAL VEIN / Unknown 07/06/2024 5:58 AM EST 07/06/2024 5:59 AM EST Point Of Care Provider LAB POINT OF CARE TEST DOCKED DEVICE UNSOLICITED RESULTS Performing Organization Address [facility] de Phone Number [facility]H POC WAIVED TESTING(CLIA#[id number]) [address] [place] [address] * (ABNORMAL) POC Glucose Level (07/06/2024 12:19 AM EST) Glucose POC 365(H) 74 - 100 mg/dL 07/06/2024 12:26 AM EST [facility] POC WAIVED TESTING(CLIA# [id number]) Comment:RN NOTIFIED POC TELLERS SUPERVISOR AMBRIZ MARYJANE 07/06/2024 12:26 AM EST [facility] POC WAIVED TESTING(CLIA# [id number]) Blood ENTIRE ANTECUBITAL VEIN / Unknown 07/06/2024 12:19 AM EST 07/06/2024 12:26 AM EST Point Of Care Provider LAB POINT OF CARE TEST DOCKED DEVICE UNSOLICITED RESULTS Performing Organization Address City/[facility] Co de Phone Number [facility] POC WAIVED TESTING(CLIA#[id number]) [address] [place] [address] * (ABNORMAL) POC Glucose Level (07/05/2024 9:19 PM EST) Glucose POC 308(H) 74 - 100 mg/dL 07/05/2024 9:19 PM EST [facility] POC WAIVED TESTING(CLIA# [id number]) POC TELLERS SUPERVISOR INGRID CANSECO 07/05/2024 9:19 PM EST [facility] POC WAIVED TESTING(CLIA# [id number]) Blood ENTIRE ANTECUBITAL VEIN / Unknown 07/05/2024 9:19 PM EST 07/05/2024 9:19 PM EST Point Of Care Provider LAB POINT OF CARE TEST DOCKED DEVICE UNSOLICITED RESULTS Performing Organization Address City/[facility]/ZIP Co de Phone Number [facility] POC WAIVED TESTING(CLIA#[id number]) [address] [place] [address] * (ABNORMAL) POC Glucose Level (07/05/2024 3:22 PM EST) Glucose POC 290(H) 74 - 100 mg/dL 07/05/2024 3:23 PM EST [facility] POC WAIVED TESTING(CLIA# [id number]) POC TELLERS SUPERVISOR JEANETTE ODEN 07/05/2024 3:23 PM EST [facility] POC WAIVED TESTING(CLIA# [id number]) Blood ENTIRE ANTECUBITAL VEIN / Unknown 07/05/2024 3:22 PM EST 07/05/2024 3:23 PM EST Point Of Care Provider LAB POINT OF CARE TEST DOCKED DEVICE UNSOLICITED RESULTS EH POC WAIVED TESTING(CLIA#[id number]) [address] [place] [address] * (ABNORMAL) Osmolality (07/05/2024 1:34 PM EST) Osmolality 308(H) 280 - 300 mOsm/kg 07/05/2024 2:18 PM EST [facility] Blood ENTIRE ANTECUBITAL VEIN / Unknown Venipuncture / Unknown 07/05/2024 1:34 PM EST 07/05/2024 1:37 PM EST Drake Vega MD LAB BLOOD ORDERABLES [facility] [address] [place] [address] * (ABNORMAL) Basic Metabolic Panel (07/05/2024 1:15 PM EST) Sodium 138 136 - 145 mmol/L LAB SEROLOGY ATELLICA METHOD 07/05/2024 1:41 PM [facility] Potassium 4.5 3.5 - 5.1 mmol/L LAB SEROLOGY ATELLICA METHOD 07/05/2024 1:41 PM [facility] Chloride 101 98 - 107 mmol/L LAB SEROLOGY ATELLICA METHOD 07/05/2024 1:41 PM [facility] Carbon Dioxide 25 20 - 31 mmol/L LAB SEROLOGY ATELLICA METHOD 07/05/2024 1:41 PM [facility] Anion Gap 12 5 - 15 mmol/L LAB SEROLOGY ATELLICA METHOD 07/05/2024 1:41 PM [facility] Glucose 328(H) 74 - 100 mg/dL LAB SEROLOGY ATELLICA METHOD 07/05/2024 1:41 PM [facility] BUN 22 9 - 23 mg/dL LAB SEROLOGY ATELLICA METHOD 07/05/2024 1:41 PM [facility] Creatinine 0.92 0.55 - 1.02 mg/dL LAB SEROLOGY ATELLICA METHOD 07/05/2024 1:41 PM [facility] Calcium 9.8 8.3 - 10.6 mg/dL LAB SEROLOGY ATELLICA METHOD 07/05/2024 1:41 PM [facility] BUN/Creatinine Ratio 23.91 LAB SEROLOGY ATELLICA METHOD 07/05/2024 1:41 PM [facility] eGFR 81 >=60 mL/min/1.7 3m*2 LAB SEROLOGY ATELLICA METHOD 07/05/2024 1:41 PM [facility] Blood ENTIRE ANTECUBITAL VEIN / Unknown Venipuncture / Unknown 07/05/2024 1:15 PM EST 07/05/2024 1:18 PM EST Francisco Espino MD LAB BLOOD ORDERABLES [facility] [address] [place] [address] * (ABNORMAL) POC EPOC BMP w/HH (07/05/2024 1:12 PM EST) Sodium POC 140 136 - 145 mmol/L 07/05/2024 1:15 PM EST [facility] POC TESTING(CLIA #[id number]) Potassium POC 4.6 3.5 - 5.1 mmol/L 07/05/2024 1:15 PM EST [facility] POC TESTING(CLIA #[id number]) Chloride POC 104 96 - 111 mmol/L 07/05/2024 1:15 PM EST [facility] POC TESTING(CLIA #[id number]) Ionized Calcium POC 5.2 3.7 - 5.9 mg/dL 07/05/2024 1:15 PM EST [facility] POC TESTING(CLIA #[id number]) Glucose POC 354(H) 74 - 100 mg/dL 07/05/2024 1:15 PM EST [facility] POC TESTING(CLIA #[id number]) BUN POC 24(H) 9 - 23 mg/dL 07/05/2024 1:15 PM EST [facility] POC TESTING(CLIA #[id number]) Creatinine POC 1.02(H) 0.50 - 0.80 mg/dL 07/05/2024 1:15 PM EST [facility] POC TESTING(CLIA #[id number]) TCO2 POC 27.7 20 - 31 mmol/L 07/05/2024 1:15 PM EST [facility] POC TESTING(CLIA #[id number]) HGB POC 11.8(L) 12 - 16 g/dL 07/05/2024 1:15 PM EST [facility] POC TESTING(CLIA #[id number]) HCT POC 35 35 - 45 % 07/05/2024 1:15 PM EST [facility] POC TESTING(CLIA #[id number]) POC TELLERS SUPERVISOR Yamini DUFFY 07/05 1:15 PM EST [facility] POC TESTING(CLIA #[id number]) Blood ENTIRE ANTECUBITAL VEIN / Unknown 07/05/2024 1:12 PM EST 07/05/2024 1:15 PM EST Point Of Care Provider LAB POINT OF CARE TEST DOCKED DEVICE UNSOLICITED RESULTS Performing Organization Address [facility] de Phone Number POC TESTING(CLIA#[id number]) [address] [place] [address] * Lactic Acid (07/05/2024 11:17 AM EST) [facility] Lactic Acid 1.6 0.5 - 2.0 mmol/L LAB SEROLOGY ATELLICA METHOD 07/05/2024 11:43 AM EST [facility] Blood ENTIRE ANTECUBITAL VEIN / Unknown Venipuncture / Unknown 07/05/2024 11:17 AM EST 07/05/2024 11:19 AM EST Drake Vega MD LAB BLOOD ORDERABLES Performing Organization Address [facility] de Phone Number [facility] [address] [place] [address] * POC Urine (07/05/2024 10:39 AM EST) [facility] , Urine POC Negative Negative [facility] POC WAIVED TESTING(CLIA #[id number]) Internal Q.C. Pass [facility] POC WAIVED TESTING(CLIA #[id number]) Test Lot # and Exp Date [id number] 2024-12-16 Lot # /Exp Date [facility] POC WAIVED TESTING(CLIA #[id number]) Urine URINE SPECIMEN / Unknown 07/05/2024 10:39 AM EST Drake Vega MD POINT OF CARE TEST E NTER/EDIT ORDERABLES Performing Organization Address [facility] de Phone Number POC WAIVED TESTING(CLIA#[id number]) [address] [place] [address] * Urine Culture (07/05/2024 10:36 AM EST) Pathologist [facility] Urine Culture No Growth. 07/07/2024 7:32 AM [facility] Urine URINE SPECIMEN OBTAINED BY CLEAN CATCH PROCEDURE / Unknown Non-Blood Collection / Unknown 07/05/2024 10:36 AM EST 07/05/2024 10:50 AM EST Physician E/R Staff LAB URINE ORDERAB LES [facility] [address] [place] [address] * (ABNORMAL) Urinalysis, Microscopy and Culture if Indicated (07/05/2024 10:36 AM EST) Color, Urine Colorless Colorless, Yellow, Straw, Dolly, Light Yellow, Dark-Yellow 07/05/2024 10:51 AM [facility] Clarity, Urine Clear Clear 07/05/2024 10:51 AM [facility] Glucose, Urine >1000(A) Normal mg/dL 07/05/2024 10:51 AM [facility] Bilirubin, Urine Negative Negative mg/dL 07/05/2024 10:51 AM [facility] Ketones, Urine 10(A) Negative mg/dL 07/05/2024 10:51 AM [facility] Specific [place], Urine 1.012(L) 1.015 - 1.025 07/05/2024 10:51 AM [facility] Blood, Urine Negative Negative mg/dL 07/05/2024 10:51 AM [facility] pH, Urine 6.5 5.0 - 9.0 07/05/2024 10:51 AM [facility] Protein, Urine 100(A) Negative to 10 mg/dL 07/05/2024 10:51 AM [facility] Urobilinogen, Urine Normal Normal mg/dL 07/05/2024 10:51 AM [facility] Nitrite, Urine Negative Negative 07/05/2024 10:51 AM [facility] Leukocytes, Urine Negative Negative WBC/uL 07/05/2024 10:51 AM [facility] Bacteria, Urine 1+(A) None Seen /HPF 07/05/2024 10:51 AM [facility] Mucus, Urine 1+(A) None Seen /LPF 07/05/2024 10:51 AM [facility] WBC, Urine 1 <=3 /HPF 07/05/2024 10:51 AM [facility] RBC, Urine 4(H) <=2 /HPF 07/05/2024 10:51 AM [facility] Squamous Epithelial, Urine 15 <=20 /LPF 07/05/2024 10:51 AM [facility] Hyaline Casts, Urine 3(H) <=1 /LPF 07/05/2024 10:51 AM [facility] Urine URINE SPECIMEN OBTAINED BY CLEAN CATCH PROCEDURE / Unknown Non-Blood Collection / Unknown 07/05/2024 10:36 AM EST 07/05/2024 10:42 AM EST Physician E/R Staff LAB URINE ORDERAB LES Performing Organization Address City/State/[facility] Co de Phone Number [facility] [address] [place] [phone] * (ABNORMAL) Urine Tox Screen (07/05/2024 10:36 AM EST) Amphetamines, Urine Not Detected Not Detected LAB SEROLOGY ATELLICA METHOD 07/05/2024 11:11 AM [facility] Barbiturates, Urine Not Detected Not Detected LAB SEROLOGY ATELLICA METHOD 07/05/2024 11:11 AM [facility] Benzodiazepin es, Urine Not Detected Not Detected LAB SEROLOGY ATELLICA METHOD 07/05/2024 11:11 AM [facility] Cannabinoids, Urine Detected(A) Not Detected LAB SEROLOGY ATELLICA METHOD 07/05/2024 11:11 AM [facility] Cocaine, Urine Not Detected Not Detected LAB SEROLOGY ATELLICA METHOD 07/05/2024 11:11 AM [facility] Methadone, Urine Not Detected Not Detected LAB SEROLOGY ATELLICA METHOD 07/05/2024 11:11 AM [facility] Opiates, Urine Not Detected Not Detected LAB SEROLOGY ATELLICA METHOD 07/05/2024 11:11 AM [facility] Phencyclidine s, Urine Not Detected Not Detected LAB SEROLOGY ATELLICA METHOD 07/05/2024 11:11 [facility] Buprenorphine , Urine Not Detected Not Detected LAB SEROLOGY ATELLICA METHOD 07/05/2024 11:11 AM [facility] Alcohol, Urine Not Detected Not Detected LAB SEROLOGY ATELLICA METHOD 07/05/2024 11:11 AM [facility] Fentanyl, Urine Not Detected Not Detected LAB SEROLOGY ATELLICA METHOD 07/05/2024 11:11 AM [facility] Urine URINE SPECIMEN / Unknown Non-Blood Collection / Unknown 07/05/2024 10:36 AM [facility] 07/05/2024 10:40 AM [facility] - 07/05/2024 11:11 AM [facility] Urine Drug Screen testing provides a preliminary analytical result. Results are not confirmed and are for Medical purposes only. Limits of detections ? Cutoff Values Amphetamine ?1000 ng/mL Barbiturates ? 200 ng/mL Benzodiazepines ? 200 ng/mL Cocaine ? 300 ng/mL Cannabinoids ?50 ng/mL Opiates ?300 ng/mL Phencyclidine ?25 ng/mL Methadone ? 300 ng/mL Buprenorphine ? 5 ng/mL Alcohol ? 50 ng/mL Fentanyl ?1 ??ng/mL Drake Vega MD LAB URINE ORDERABLES [facility] [address] [place] [address] * CT Brain WO Contrast (07/05/2024 8:20 AM EST) Anatomical Region Laterality Modality head Computed Tomogra phy 07/05/2024 8:14 AM EST Impressions 07/05/2024 8:28 AM EST There is no acute intracranial abnormality. Electronically signed by: Jose Nolen MD 07/05/2024 8:28 AM Narrative 07/05/2024 8:[address] SCAN OF THE HEAD INDICATION: Mental status change, unknown cause. COMPARISON: Study of 01/19/2024. TECHNIQUE: The study was performed without intravenous contrast. Multiplanar reformatting was performed. One or more of the following dose optimization techniques were used: automated exposure control; adjustment of the mA and/or kV according to patient size; use of iterative reconstruction technique. FINDINGS: Intracranial hemorrhage: None. Cerebral and cerebellar parenchyma: Within normal limits for age. There are no foci of abnormal attenuation to suggest acute ischemic change. There is no focal mass lesion, mass effect, or shift of the midline structures. Ventricles and extra-axial CSF spaces: Within normal limits for age and without hydrocephalus. Midline structures (pituitary, corpus callosum, pineal gland, vermis, and cerebellar tonsils): Within normal limits. Visualized paranasal sinuses and mastoid air cells: Clear. Visualized orbits: Normal. Soft tissues: Normal. Osseous structures: No significant abnormality. Procedure Note Jose Nolen MD - 07/05/2024 CT SCAN OF THE HEAD INDICATION: Mental status change, unknown cause. COMPARISON: Study of 01/19/2024. TECHNIQUE: The study was performed without intravenous contrast. Multiplanar reformatting was performed. One or more of the following dose optimization techniques were used: automated exposure control; adjustment of the mA and/or kV according to patient size; use of iterative reconstruction technique. FINDINGS: Intracranial hemorrhage: None. Cerebral and cerebellar parenchyma: Within normal limits for age. There are no foci of abnormal attenuation to suggest acute ischemic change. There is no focal mass lesion, mass effect, or shift of the midline structures. Ventricles and extra-axial CSF spaces: Within normal limits for age and without hydrocephalus. Midline structures (pituitary, corpus callosum, pineal gland, vermis, and cerebellar tonsils): Within normal limits. Visualized paranasal sinuses and mastoid air cells: Clear. Visualized orbits: Normal. Soft tissues: Normal. Osseous structures: No significant abnormality. IMPRESSION: There is no acute intracranial abnormality. Electronically signed by: Jose Nolen MD 07/05/2024 8:28 AM Drake Vega MD CT * Non Legal Blood Alcohol (07/05/2024 8:14 AM EST) [facility] Alcohol, Medical Not detected 07/05/2024 9:15 AM EST [facility] Blood ENTIRE ANTECUBITAL VEIN / Unknown Venipuncture / Unknown 07/05/2024 8:14 AM EST 07/05/2024 8:22 AM EST Drake Vega MD LAB BLOOD ORDERABLES Performing Organization Address City/[facility]/ZIP Co de Phone Number [facility] [address] [place] [address] * Just In Case - Red (07/05/2024 8:14 AM EST) [facility] Hold Specimen N/A 07/05/2024 10:00 AM EST [facility] Blood ENTIRE ANTECUBITAL VEIN / Unknown Venipuncture / Unknown 07/05/2024 8:14 AM EST 07/05/2024 8:22 AM EST Drake Vega MD LAB BLOOD ORDERABLES Performing Organization Address City/[facility]/ZIP Co de Phone Number [facility] [address] [place] [address] * (ABNORMAL) Complete Blood Count with Auto Differential (07/05/2024 8:14 AM EST) [facility] WBC 8.40 4.23 - 10.80 10*3/uL 07/05/2024 8:37 AM EST [facility] RBC 4.21 4.20 - 5.40 10*6/uL 07/05/2024 8:37 AM [facility] HGB 11.4(L) 12.0 - 16.0 g/dL 07/05/2024 8:37 AM [facility] HCT 33.9(L) 35.0 - 45.0 % 07/05/2024 8:37 AM [facility] MCV 80.5 80.0 - 96.0 fL 07/05/2024 8:37 AM [facility] MCH 27.1 27.0 - 32.0 pg 07/05/2024 8:37 AM [facility] MCHC 33.6 32.0 - 37.0 g/dL 07/05/2024 8:37 AM [facility] RDW 13.2 11.5 - 14.5 % 07/05/2024 8:37 AM [facility] Platelet 496(H) 150 - 400 10*3/uL 07/05/2024 8:37 AM [facility] Comment: Repeated and verified MPV 10.1 9.7 - 13.2 fL 07/05/2024 8:37 AM [facility] Neutrophils % 86.9 % 07/05/2024 8:37 AM [facility] Lymphocytes % 10.8 % 07/05/2024 8:37 AM [facility] Monocytes % 1.4 % 07/05/2024 8:37 AM [facility] Eos % 0.0 % 07/05/2024 8:37 AM [facility] Basophils % 0.4 % 07/05/2024 8:37 AM [facility] Immature Granulocytes % 0.50 % 07/05/2024 8:37 AM [facility] Abs Neutrophils 7.30 1.40 - 7.70 10*3/uL 07/05/2024 8:37 AM [facility] Abs Lymphocytes 0.91(L) 1.10 - 4.00 10*3/uL 07/05/2024 8:37 AM [facility] Abs Monocytes 0.12 0.10 - 1.10 10*3/uL 07/05/2024 8:37 AM [facility] Abs Eosinophils 0.00 0.00 - 0.70 10*3/uL 07/05/2024 8:37 AM [facility] Abs Basophils 0.03 0.00 - 0.20 10*3/uL 07/05/2024 8:37 AM [facility] Abs Immature Granulocytes 0.04(H) 0.00 - 0.03 10*3/uL 07/05/2024 8:37 AM [facility] Blood ENTIRE ANTECUBITAL VEIN / Unknown Venipuncture / Unknown 07/05/2024 8:14 AM EST 07/05/2024 8:22 AM EST Drake Vega MD LAB BLOOD ORDERABLES Performing Organization Address [facility] Co de Phone Number [facility] [address] [place] [address] * (ABNORMAL) Lactic Acid with Reflex (07/05/2024 8:14 AM EST) Lactic Acid 2.6(H) 0.5 - 2.0 mmol/L LAB SEROLOGY ATELLICA METHOD 07/05/2024 8:56 AM [facility] Blood ENTIRE ANTECUBITAL VEIN / Unknown Venipuncture / Unknown 07/05/2024 8:14 AM EST 07/05/2024 8:22 AM EST Drake Vega MD LAB BLOOD ORDERABLES Performing Organization Address [facility] Co de Phone Number [facility] [address] [place] [address] * (ABNORMAL) Beta Hydroxybutyrate (07/05/2024 8:14 AM EST) Beta-hydroxybuty rate 2.36(H) <0.30 mmol/L LAB SEROLOGY ATELLICA METHOD 07/05/2024 9:09 AM [facility] Comment: ?> 2.0 mmol/L Ketoacidosis The BHB level may be used to demonstrate the resolution of ketoacidosis. ??Generally the patient is managed to a BHB level of < 1.0 mmol/L. Blood ENTIRE ANTECUBITAL VEIN / Unknown Venipuncture / Unknown 07/05/2024 8:14 AM EST 07/05/2024 8:22 AM EST Drake Vega MD LAB BLOOD ORDERABLES [facility] [address] [place] [address] * Venous Blood Gas (07/05/2024 8:14 AM EST) Temperature, VBG 37.0 C 07/05/2024 8:24 AM [facility] pH (T), VBG 7.350 7.220 - 7.460 07/05/2024 8:24 AM [facility] pCO2 (T), VBG 44.0 29.0 - 58.0 mmHG 07/05/2024 8:24 AM [facility] pO2 (T), VBG 38.0 27.0 - 60.0 mmHG 07/05/2024 8:24 AM [facility] tHb, VBG 12.0 12.0 - 18.0 g/dL 07/05/2024 8:24 AM [facility] O2 Hb, VBG 65.4 60.0 - 90.0 % 07/05/2024 8:24 AM [facility] Met Hb, VBG 0.0 0.0 - 2.0 % 07/05/2024 8:24 AM [facility] Hct, VBG 36.0 % 07/05/2024 8:24 AM [facility] BASE, VBG -1.5 -2.5 - 2.5 mmol/L 07/05/2024 8:24 AM [facility] cHCO3- (P,st), VBG 24.3 19.0 - 25.0 mmol/L 07/05/2024 8:24 AM [facility] sO2, VBG 67.6 60.0 - 90.0 % 07/05/2024 8:24 AM [facility] Blood ENTIRE ANTECUBITAL VEIN / Unknown Venipuncture / Unknown 07/05/2024 8:14 AM EST 07/05/2024 8:22 AM EST Drake Vega MD LAB BLOOD ORDERABLES Performing Organization Address [facility] de Phone Number [facility] [address] [place] [address] * Phosphorus (07/05/2024 8:14 AM EST) Phosphorus 4.8 2.4 - 5.1 mg/dL LAB SEROLOGY ATELLICA METHOD 07/05/2024 9:09 AM EST [facility] Blood ENTIRE ANTECUBITAL VEIN / Unknown Venipuncture / Unknown 07/05/2024 8:14 AM EST 07/05/2024 8:22 AM EST Drake Vega MD LAB BLOOD ORDERABLES Performing Organization Address [facility] [facility] Phone Number [facility] [address] [place] [address] * Magnesium (07/05/2024 8:14 AM EST) Magnesium 1.9 1.6 - 2.6 mg/dL LAB SEROLOGY ATELLICA METHOD 07/05/2024 9:09 AM EST [facility] Blood ENTIRE ANTECUBITAL VEIN / Unknown Venipuncture / Unknown 07/05/2024 8:14 AM EST 07/05/2024 8:22 AM EST Drake Vega MD LAB BLOOD ORDERABLES Performing Organization Address [facility] de Phone Number [facility] [address] [place] [address] * (ABNORMAL) Lipase (07/05/2024 8:14 AM EST) Lipase 96(H) 12 - 53 U/L LAB SEROLOGY ATELLICA METHOD 07/05/2024 9:09 AM EST [facility] Blood ENTIRE ANTECUBITAL VEIN / Unknown Venipuncture / Unknown 07/05/2024 8:14 AM EST 07/05/2024 8:22 AM EST Drake Vega MD LAB BLOOD ORDERABLES [facility] [address] [place] [address] * (ABNORMAL) Comprehensive Metabolic Panel (07/05/2024 8:14 AM EST) Sodium 137 136 - 145 mmol/L LAB SEROLOGY ATELLICA METHOD 07/05/2024 9:16 AM [facility] Potassium 4.6 3.5 - 5.1 mmol/L LAB SEROLOGY ATELLICA METHOD 07/05/2024 9:16 AM [facility] Chloride 99 98 - 107 mmol/L LAB SEROLOGY ATELLICA METHOD 07/05/2024 9:16 AM [facility] Carbon Dioxide 23 20 - 31 mmol/L LAB SEROLOGY ATELLICA METHOD 07/05/2024 9:16 AM [facility] Anion Gap 15 5 - 15 mmol/L LAB SEROLOGY ATELLICA METHOD 07/05/2024 9:16 AM [facility] Glucose 294(H) 74 - 100 mg/dL LAB SEROLOGY ATELLICA METHOD 07/05/2024 9:16 AM [facility] BUN 26(H) 9 - 23 mg/dL LAB SEROLOGY ATELLICA METHOD 07/05/2024 9:16 AM [facility] Creatinine 1.09(H) 0.55 - 1.02 mg/dL LAB SEROLOGY ATELLICA METHOD 07/05/2024 9:16 AM [facility] BUN/Creatinine Ratio 23.85 LAB SEROLOGY ATELLICA METHOD 07/05/2024 9:16 AM [facility] Calcium 10.6 8.3 - 10.6 mg/dL LAB SEROLOGY ATELLICA METHOD 07/05/2024 9:16 AM [facility] Protein, Total 8.9(H) 5.7 - 8.2 g/dL LAB SEROLOGY ATELLICA METHOD 07/05/2024 9:16 AM [facility] Comment:Repeated and Verifie d. Albumin 5.1(H) 3.2 - 4.8 g/dL LAB SEROLOGY ATELLICA METHOD 07/05/2024 9:16 AM [facility] AST 66(H) <=34 U/L LAB SEROLOGY ATELLICA METHOD 07/05/2024 9:16 AM [facility] ALT 89(H) 10 - 49 U/L LAB SEROLOGY ATELLICA METHOD 07/05/2024 9:16 AM [facility] ALK Phos 152(H) 46 - 116 U/L LAB SEROLOGY ATELLICA METHOD 07/05/2024 9:16 AM [facility] Bilirubin, Total 0.4 0.3 - 1.2 mg/dL LAB SEROLOGY ATELLICA METHOD 07/05/2024 9:16 AM [facility] Globulin 3.8 g/dL 07/05/2024 9:16 AM [facility] Albumin Globulin Ratio 1.34 07/05/2024 9:16 AM [facility] eGFR 66 >=60 mL/min/1. 73m*2 LAB SEROLOGY ATELLICA METHOD 07/05/2024 9:16 AM [facility] Blood ENTIRE ANTECUBITAL VEIN / Unknown Venipuncture / Unknown 07/05/2024 8:14 AM EST 07/05/2024 8:22 AM EST Drake Vega MD LAB BLOOD ORDERABLES Performing Organization Address City/State/[facility] Co de Phone Number [facility] [address] [place] [address] * EKG (07/05/2024 7:42 AM EST) Ventricular Rate 118 BPM CARDIOLOGY MUSE Atrial Rate 118 BPM CARDIOLO GY MUSE P-R Interval 148 ms CARDIOL OGY MUSE QRS Duration 78 ms CARDIOL OGY MUSE Q-T Interval 338 ms CARDIOL OGY MUSE Q2C Calculation(Be zet) 473 ms CARDIOLOGY MUSE P [place] 50 degrees CARDIOLOGY MUSE R [place] 61 degrees CARDIOLOGY MUSE T [place] 61 degrees CARDIOLOGY MUSE Diagnosis Line Sinus tachycardia Septal infarct (cited on or before 25-JUN-2024) Abnormal ECG When compared with ECG of 25-JUN-2024 15:20, No significant change was found CARDIOLOGY MUSE 07/05/2024 7:42 AM EST 07/05/2024 11:42 PM EST Francisco Espino MD EKG ORDERABLES Performing Organization Address [facility]/ZIP Co de Phone Number CARDIOLOGY MUSE [address] [place] [address] * (ABNORMAL) POC Glucose Level (07/05/2024 7:34 AM EST) Glucose POC 257(H) 74 - 100 mg/dL 07/05/2024 7:35 AM EST EH POC WAIVED TESTING(CLIA #[id number]) POC TELLERS SUPERVISOR Yamini DUFFY 07/05 7:35 AM EST EH POC WAIVED TESTING(CLIA #[id number]) Blood ENTIRE ANTECUBITAL VEIN / Unknown 07/05/2024 7:34 AM EST 07/05/2024 7:35 AM EST Point Of Care Provider LAB POINT OF CARE TEST DOCKED DEVICE UNSOLICITED RESULTS Performing Organization Address [facility] de Phone Number POC WAIVED TESTING(CLIA#[id number]) [address] [place] [address] * STAT FLUVID Respiratory Multiplex PCR (07/05/2024 7:25 AM EST) Pathologist [facility] COVID-19 SARS-CoV2/RT PCR Negative Negative 07/05/2024 8:09 AM [facility] Influenza A by PCR Negative Negative 07/05/2024 8:09 AM [facility] Influenza B by PCR Negative Negative 07/05/2024 8:09 AM [facility] RSV by PCR Negative Negative 07/05/2024 8:09 AM [facility] Swab NASOPHARYNGEAL STRUCTURE / Unknown Non-Blood Collection / Unknown 07/05/2024 7:25 AM EST 07/05/2024 7:29 AM EST Drake Vega MD LAB MICROBIOLOGY - G ENERAL ORDERABLES Performing Organization Address City/[facility]/ZIP Co de Phone Number [facility] [address] [place] [address] documented in this encounter Visit Diagnoses Diagnosis Intractable nausea and vomiting- Primary Persistent vomiting Hyperglycemia Other abnormal glucose Acute vomiting Vomiting alone Type 1 diabetes mellitus with hyperglycemia Type I (juvenile type) diabetes mellitus without mention of complication, not stated as uncontrolled documented in this encounter Administered Medications Inactive Administered Medications - up to 3 most recent administrations Medication Order MAR Action Action Date Dose Rate Site amitriptyline (ELAVIL) tablet 25 mg 25 mg, Oral, AT BEDTIME, First dose on Sat07/05/24 at 2100, Until Discontinued Given 07/05/2024 9:21 PM EST 25 mg aspirin chew tablet 81 mg 81 mg, Chew, DAILY, First dose on Sat07/05/24 at 1435, Until Discontinued Given 07/06/2024 9:54 AM EST 81 mg Given 07/05/2024 3:01 PM EST 81 mg atorvastatin (LIPITOR) tablet 40 mg 40 mg, Oral, AT BEDTIME, First dose on Sat07/05/24 at 2100, Until Discontinued Given 07/05/2024 9:21 PM EST 40 mg dextrose 5 % and 0.45% NaCl infusion Intravenous, CONTINUOUS, at 75 mL/hr, Starting on Sat07/05/24 at 1435 New Bag 07/06/2024 4:01 AM EST 75 mL/hr Rate Documented 07/06/2024 12:25 AM EST 75 mL/h r New Bag 07/05/2024 3:01 PM EST 75 mL/hr droperidol (INAPSINE) injection 0.625 mg 0.625 mg, Intravenous, ONCE, On Sat07/05/24 at 1150 Given 07/05/2024 11:53 AM EST 0.625 mg ferrous sulfate (IRON) tablet 325 mg 325 mg, Oral, EVERY 48 HOURS, First dose on Sat07/06/24 at 0900, Until Discontinued Given 07/06/2024 9:54 AM EST 32 5 mg insulin glargine (LANTUS) pen 10 Units 10 Units, Subcutaneous, AT BEDTIME, First dose on Sat07/05/24 at 2100, Until Discontinued Given 07/05/2024 9:21 PM EST 10 Units insulin lispro (HUMALOG/ADMELOG) injection 0-10 Units 0-10 Units, Subcutaneous, 3 TIMES A DAY, First dose (after last modification) on Sat07/05/24 at 1540, Until Discontinued Given 07/06/2024 12:54 PM EST 6 Un its Given 07/06/2024 5:59 AM EST 10 Units Given 07/05/2024 3:51 PM EST 6 Units insulin lispro (HUMALOG/ADMELOG) injection 0-4 Units 0-4 Units, Subcutaneous, DAILY AT 2400, First dose on Sat07/06/24 at 0000, Until Discontinued Given 07/06/2024 12:22 AM EST 4 Units insulin lispro (HUMALOG/ADMELOG) injection 5 Units 5 Units, Subcutaneous, ONCE, On Sat07/06/24 at 0645 Given 07/06/2024 6:41 AM EST 5 Units lactated ringers bolus 1,000 mL 1,000 mL, Intravenous, ONCE, On Sat07/05/24 at 0745 07/05/2024 7:35 AM EST 1,000 mL lactated ringers bolus 1,000 mL 1,000 mL, Intravenous, ONCE, On Sat07/05/24 at 0905 07/05/2024 9:08 AM EST 1,000 mL lactated ringers bolus 500 mL 500 mL, Intravenous, ONCE, On Sat07/05/24 at 1235 07/05/2024 12:27 PM EST 500 mL lisinopril (PRINIVIL) tablet 20 mg 20 mg, Oral, EVERY MORNING, First dose on Sat07/06/24 at 0900, Until Discontinued Given 07/06/2024 9:54 AM EST 20 mg LORazepam (ATIVAN) injection 1 mg 1 mg, Intravenous, EVERY 4 HOURS PRN, Nausea or Vomiting 3rd line, Starting on Sat07/05/24 at 1446, Until Sat07/06/24 at 1802 melatonin tablet 6 mg 6 mg, Oral, AT BEDTIME PRN, Sleep, Starting on Sat07/05/24 at 2145, Until Sat07/06/24 at 1802 Given 07/05/2024 10:08 PM EST 6 mg metoclopramide (REGLAN) 10 mg in sodium chloride 0.9 % 50 mL piggyback 10 mg, Intravenous, EVERY 6 HOURS (Scheduled), First dose on Sat07/05/24 at 1800, Until Discontinued New 07/06/2024 9:53 AM EST 10 mg 200 mL/hr New 07/06/2024 2:59 AM EST 10 mg 200 mL/hr 07/05/2024 9:21 PM EST 10 mg 200 mL/hr metoclopramide (REGLAN) injection 10 mg 10 mg, Intravenous, ONCE, On Sat07/05/24 at 0735 Given 07/05/2024 7:41 AM EST 10 mg metoprolol succinate (TOPROL XL) tablet 100 mg 100 mg, Oral, DAILY, First dose on Sat07/06/24 at 0900, Until Discontinued Given 07/06/2024 9:54 AM EST 100 mg metoprolol tartrate (LOPRESSOR) tablet 50 mg 50 mg, Oral, ONCE, On Sat07/05/24 at 1945 Given 07/05/2024 7:51 PM EST 50 mg proCHLORperazine (COMPAZINE) injection 5 mg 5 mg, Intravenous, EVERY 4 HOURS PRN, Nausea or Vomiting 2nd line, Starting on Sat07/05/24 at 1420, Until Sat07/06/24 at 1802 Given 07/05/2024 2:35 PM EST 5 mg proMETHazine (PHENERGAN) rectal suppository 25 mg 25 mg, Rectal, EVERY 6 HOURS PRN, Nausea or Vomiting 2nd line, Starting on Sat07/05/24 at 1420, Until Sat07/06/24 at 1802 proMETHazine (PHENERGAN) tablet 25 mg 25 mg, Oral, EVERY 6 HOURS PRN, Nausea or Vomiting 2nd line, Starting on Sat07/05/24 at 1420, Until Sat07/06/24 at 1802 sodium chloride 0.9 % flush 10 mL 10 mL, Intravenous, TWICE A DAY, First dose on Sat07/05/24 at 1435, Until Discontinued Given 07/06/2024 9:00 AM EST 10 mL Given 07/05/2024 9:00 PM EST 10 mL Given 07/05/2024 3:03 PM EST 10 mL sodium chloride 0.9 % infusion Intravenous, CONTINUOUS, at 75 mL/hr, Starting on Sat07/06/24 at 0845 New Bag 07/06/2024 9:54 AM EST 75 mL/hr documented in this encounter Active and Recently Administered Medications Times are shown in EST. Scheduled Medication Order 07/04/2024 07/05/2024 07/06/2024 amitriptyline (ELAVIL) tablet 25 mg 25 mg, Oral, AT BEDTIME, First dose on Sat07/05/24 at 2100, Until Discontinued 2120 (Given - Provider: Lorin Hurtado RN) aspirin chew tablet 81 mg 81 mg, Chew, DAILY, First dose on Sat07/05/24 at 1435, Until Discontinued 1501 (Given - Provider: Maco Kc RN) 0954 (Given - Provider: Jory Reyes, MACIEL) atorvastatin (LIPITOR) tablet 40 mg 40 mg, Oral, AT BEDTIME, First dose on Sat07/05/24 at 2100, Until Discontinued 2120 (Given - Provider: Lorin Hurtado RN) droperidol (INAPSINE) injection 0.625 mg (COMPLETED) 0.625 mg, Intravenous, ONCE, On 07/05/24 at 1150 1153 (Given - Provider: Maco Kc RN) ferrous sulfate (IRON) tablet 325 mg 325 mg, Oral, EVERY 48 HOURS, First dose on Sat07/06/24 at 0900, Until Discontinued 0954 (Given - Provid er: Jory Reyes RN) insulin glargine (LANTUS) pen 10 Units 10 Units, Subcutaneous, AT BEDTIME, First dose on Sat07/05/24 at 2100, Until Discontinued 2120 (Given - Provider: Lorin Hurtado RN) insulin lispro (HUMALOG/ADMELOG) injection 0-10 Units 0-10 Units, Subcutaneous, 3 TIMES A DAY, First dose (after last modification) on Sat07/05/24 at 1540, Until Discontinued 155 (Given - Provider: Maco Kc RN) 0559 (Given - Provider: Maryjane Ambriz RN)1254 (Given - Provider: Jory Reyes, MACIEL) insulin lispro (HUMALOG/ADMELOG) injection 0-4 Units 0-4 Units, Subcutaneous, DAILY AT 2400, First dose on Sat07/06/24 at 0000, Until Discontinued 0022 (Given - Provid er: Maryjane Ambriz RN) insulin lispro (HUMALOG/ADMELOG) injection 5 Units (COMPLETED) 5 Units, Subcutaneous, ONCE, On Sat07/06/24 at 0645 0641 (Given - Provid er: Maryjane Ambriz RN) lactated ringers bolus 1,000 mL (COMPLETED) 1,000 mL, Intravenous, ONCE, On Sat07/05/24 at 0745 0735 (New Bag - Provider: Maco Kc RN)0951 (Stopped - Provider: Maco Kc RN) lactated ringers bolus 1,000 mL (COMPLETED) 1,000 mL, Intravenous, ONCE, On 07/05/24 at 0905 0908 (New Bag - Provider: Maco Kc RN)1027 (Stopped - Provider: Maco Kc RN) lactated ringers bolus 500 mL (COMPLETED) 500 mL, Intravenous, ONCE, On 07/05/24 at 1235 1227 (New Bag - Provider: Maco Kc RN)1534 (Stopped - Provider: Maco Kc RN) lisinopril (PRINIVIL) tablet 20 mg 20 mg, Oral, EVERY MORNING, First dose on Sat07/06/24 at 0900, Until Discontinued 953 (Given - Provid er: Jory Reyes RN) metoclopramide (REGLAN) 10 mg in sodium chloride 0.9 % 50 mL piggyback 10 mg, Intravenous, EVERY 6 HOURS (Scheduled), First dose on Sat07/05/24 at 1800, Until Discontinued 2120 (New Bag - Provider: Lorin Hurtado RN)2136 (Stopped - Provider: Lorin Hurtado RN) 0259 (New Bag - Provider: Maryjane Ambriz RN)0314 (Stopped - Provider: Maryjane Ambriz RN)0953 (New Bag - Provider: Jory Reyes RN)1008 (Stopped - Provider: Jory Reyes RN)1500 (Due - Provider: Francis Marr, PharmD) metoclopramide (REGLAN) injection 10 mg (COMPLETED) 10 mg, Intravenous, ONCE, On Sat07/05/24 at 0735 0741 (Given - Provider: Maco Kc RN) metoprolol succinate (TOPROL XL) tablet 100 mg 100 mg, Oral, DAILY, First dose on Sat07/06/24 at 0900, Until Discontinued 54 (Given - Provid er: Jory Reyes RN) metoprolol tartrate (LOPRESSOR) tablet 50 mg (COMPLETED) 50 mg, Oral, ONCE, On Sat07/05/24 at 1945 1951 (Given - Provider: Lorin Hurtado, RN) sodium chloride 0.9 % flush 10 mL 10 mL, Intravenous, TWICE A DAY, First dose on Sat07/05/24 at 1435, Until Discontinued 1503 (Given - Provider: Maco Kc, MACIEL)2100 (Given - Provider: Lorin Hurtado, RN) 0900 (Given - Provider: Jory Reyes, MACIEL) Continuous Medication Order 07/04/2024 07/05/2024 07/06/2024 dextrose 5 % and 0.45% NaCl infusion (CANCELED) Intravenous, CONTINUOUS, at 75 mL/hr, Starting on Sat07/05/24 at 1435 1501 (New Bag - Provider: Maco Kc RN) 0025 (Rate Documented - Provider: Maryjane Ambriz, RN)0401 (New Bag - Provider: Maryjane Ambriz, MACIEL)0804 (Stopped - Provider: Jory Reyes, MACIEL) sodium chloride 0.9 % infusion Intravenous, CONTINUOUS, at 75 mL/hr, Starting on Sat07/06/24 at 0845 0954 (New Bag - Provider: Jory Reyes, MACIEL)1802 (Due: Stopped) PRN Medication Order 07/04/2024 07/05/2024 07/06/2024 acetaminophen (TYLENOL) tablet 500 mg 500 mg, Oral, EVERY 6 HOURS PRN, Mild Pain (Pain Score 1-3), Moderate Pain (Pain Score 4-7), Starting on Sat07/05/24 at 1426, Until Sat07/06/24 at 1802 atropine sulfate injection 1 mg 1 mg, Intravenous, PRN, Heart Rate less than 50 BPM, Starting on Sat07/05/24 at 1426, Until Sat07/06/24 at 1802 dextrose (D50) solution 25 g 25 g (50 mL), Intravenous, PRN, hypoglycemia, for patients unconscious, uncooperative, or unable to tolerate PO, Starting on Sat07/05/24 at 1426, Until Sat07/06/24 at 1802 glucose chew tab 16-32 g 16-32 g, Oral, PRN, hypoglycemia, Starting on Sat07/05/24 at 1426, Until Sat07/06/24 at 1802 LORazepam (ATIVAN) injection 1 mg 1 mg, Intravenous, EVERY 4 HOURS PRN, Nausea or Vomiting 3rd line, Starting on 07/05/24 at 1446, Until Sat07/06/24 at 1802 melatonin tablet 6 mg 6 mg, Oral, AT BEDTIME PRN, Sleep, Starting on 07/05/24 at 2145, Until Sat07/06/24 at 1802 2208 (Given - Provider: Kylee Hurtado RN) nitroGLYCERIN (NITROSTAT) sublingual tablet 0.4 mg 0.4 mg, Sublingual, EVERY 5 MIN PRN, Chest Pain, Starting on 07/05/24 at 1426, Until Sat07/06/24 at 1802 proCHLORperazine (COMPAZINE) injection 5 mg(Linked Group 1) 5 mg, Intravenous, EVERY 4 HOURS PRN, Nausea or Vomiting 2nd line, Starting on 07/05/24 at 1420, Until Sat07/06/24 at 1802 1435 (Given - Provider: Maco Kc RN) proMETHazine (PHENERGAN) rectal suppository 25 mg(Linked Group 1) 25 mg, Rectal, EVERY 6 HOURS PRN, Nausea or Vomiting 2nd line, Starting on 07/05/24 at 1420, Until Sat07/06/24 at 1802 1435 (See Alternative - Provider: Maco Kc RN) proMETHazine (PHENERGAN) tablet 25 mg(Linked Group 1) 25 mg, Oral, EVERY 6 HOURS PRN, Nausea or Vomiting 2nd line, Starting on 07/05/24 at 1420, Until Sat07/06/24 at 1802 1435 (See Alternative - Provider: Maco Kc RN) Linked Groups Order Group 1: proMETHazine (PHENERGAN) tablet 25 mgJump to med 25 mg, Oral, EVERY 6 HOURS PRN, Nausea or Vomiting 2nd line, Starting on 07/05/24 at 1420, Until 07/06/24 at 1802 Or proMETHazine (PHENERGAN) rectal suppository 25 mgJump to med 25 mg, Rectal, EVERY 6 HOURS PRN, Nausea or Vomiting 2nd line, Starting on 07/05/24 at 1420, Until Sat07/06/24 at 1802 Or proCHLORperazine (COMPAZINE) injection 5 mgJump to med 5 mg, Intravenous, EVERY 4 HOURS PRN, Nausea or Vomiting 2nd line, Starting on 07/05/24 at 1420, Until 07/06/24 at 1802 documented in this encounter Additional Health Concerns Infection Onset Date Last Indicated Resolved Time Influenza Rule-Out 07/05/2024 07/05/2024 8:09 AM EST RSV Rule-Out 07/05/2024 07/05/2024 07/05/2024 8:09 AM EST COVID-19 Rule-Out 07/05/2024 07/05/2024 07/05/2024 8:09 AM EST documented as of this encounter 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
--- OUTSIDE RECORDS SUMMARY | 2024-07-26 05:45 | XMS_ITS | Clinical Summary ---
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 Temperature, VBG 37.0 C 07/05/2024 8:24 AM [facility] pH (T), VBG 7.350 7.220 - 7.460 07/05/2024 8:24 AM [facility] pCO2 (T), VBG 44.0 29.0 - 58.0 mmHG 07/05/2024 8:24 AM [facility] pO2 (T), VBG 38.0 27.0 - 60.0 mmHG 07/05/2024 8:24 AM [facility] tHb, VBG 12.0 12.0 - 18.0 g/dL 07/05/2024 8:24 AM [facility] O2 Hb, VBG 65.4 60.0 - 90.0 % 07/05/2024 8:24 AM [facility] Met Hb, VBG 0.0 0.0 - 2.0 % 07/05/2024 8:24 AM [facility] Hct, VBG 36.0 % 07/05/2024 8:24 AM [facility] BASE, VBG -1.5 -2.5 - 2.5 mmol/L 07/05/2024 8:24 AM [facility] cHCO3- (P,st), VBG 24.3 19.0 - 25.0 mmol/L 07/05/2024 8:24 AM [facility] sO2, VBG 67.6 60.0 - 90.0 % 07/05/2024 8:24 AM [facility] Blood ENTIRE ANTECUBITAL VEIN / Unknown Venipuncture / Unknown 07/05/2024 8:14 AM EST 07/05/2024 8:22 AM EST Drake Vega MD LAB BLOOD ORDERABLES Performing Organization Address [facility] de Phone Number [facility] [address] [place] [address] * Phosphorus (07/05/2024 8:14 AM EST) Only the most recent of2 resultswithin the time period is included. Phosphorus 4.8 2.4 - 5.1 mg/dL LAB SEROLOGY ATELLICA METHOD 07/05/2024 9:09 AM EST [facility] Blood ENTIRE ANTECUBITAL VEIN / Unknown Venipuncture / Unknown 07/05/2024 8:14 AM EST 07/05/2024 8:22 AM EST Drake Vega MD LAB BLOOD ORDERABLES Performing Organization Address [facility] de Phone Number [facility] [address] [place] [address] * Magnesium (07/05/2024 8:14 AM EST) Only the most recent of2 resultswithin the time period is included. Magnesium 1.9 1.6 - 2.6 mg/dL LAB SEROLOGY ATELLICA METHOD 07/05/2024 9:09 AM EST [facility] Blood ENTIRE ANTECUBITAL VEIN / Unknown Venipuncture / Unknown 07/05/2024 8:14 AM EST 07/05/2024 8:22 AM EST Drake Vega MD LAB BLOOD ORDERABLES Performing Organization Address [facility] de Phone Number [facility] [address] [place] [address] * (ABNORMAL) Lipase (07/05/2024 8:14 AM EST) Lipase 96(H) 12 - 53 U/L LAB SEROLOGY ATELLICA METHOD 07/05/2024 9:09 AM EST [facility] Blood ENTIRE ANTECUBITAL VEIN / Unknown Venipuncture / Unknown 07/05/2024 8:14 AM EST 07/05/2024 8:22 AM EST Drake Vega MD LAB BLOOD ORDERABLES [facility] [address] [place] [address] * (ABNORMAL) Comprehensive Metabolic Panel (07/05/2024 8:14 AM EST) Only the most recent of2 resultswithin the time period is included. Sodium 137 136 - 145 mmol/L LAB SEROLOGY ATELLICA METHOD 07/05/2024 9:16 AM [facility] Potassium 4.6 3.5 - 5.1 mmol/L LAB SEROLOGY ATELLICA METHOD 07/05/2024 9:16 AM [facility] Chloride 99 98 - 107 mmol/L LAB SEROLOGY ATELLICA METHOD 07/05/2024 9:16 AM [facility] Carbon Dioxide 23 20 - 31 mmol/L LAB SEROLOGY ATELLICA METHOD 07/05/2024 9:16 AM [facility] Anion Gap 15 5 - 15 mmol/L LAB SEROLOGY ATELLICA METHOD 07/05/2024 9:16 AM [facility] Glucose 294(H) 74 - 100 mg/dL LAB SEROLOGY ATELLICA METHOD 07/05/2024 9:16 AM [facility] BUN 26(H) 9 - 23 mg/dL LAB SEROLOGY ATELLICA METHOD 07/05/2024 9:16 AM [facility] Creatinine 1.09(H) 0.55 - 1.02 mg/dL LAB SEROLOGY ATELLICA METHOD 07/05/2024 9:16 AM [facility] BUN/Creatinine Ratio 23.85 LAB SEROLOGY ATELLICA METHOD 07/05/2024 9:16 AM [facility] Calcium 10.6 8.3 - 10.6 mg/dL LAB SEROLOGY ATELLICA METHOD 07/05/2024 9:16 AM [facility] Protein, Total 8.9(H) 5.7 - 8.2 g/dL LAB SEROLOGY ATELLICA METHOD 07/05/2024 9:16 AM [facility] Comment:Repeated and Verifie d. Albumin 5.1(H) 3.2 - 4.8 g/dL LAB SEROLOGY ATELLICA METHOD 07/05/2024 9:16 AM [facility] AST 66(H) <=34 U/L LAB SEROLOGY ATELLICA METHOD 07/05/2024 9:16 AM [facility] ALT 89(H) 10 - 49 U/L LAB SEROLOGY ATELLICA METHOD 07/05/2024 9:16 AM [facility] ALK Phos 152(H) 46 - 116 U/L LAB SEROLOGY ATELLICA METHOD 07/05/2024 9:16 AM [facility] Bilirubin, Total 0.4 0.3 - 1.2 mg/dL [facility] 07/05/2024 9:16 AM [facility] Globulin 3.8 g/dL 07/05/2024 9:16 AM [facility] Albumin Globulin Ratio 1.34 07/05/2024 9:16 AM [facility] eGFR 66 >=60 mL/min/1. 73m*2 LAB SEROLOGY ATELLICA METHOD 07/05/2024 9:16 AM [facility] Blood ENTIRE ANTECUBITAL VEIN / Unknown Venipuncture / Unknown 07/05/2024 8:14 AM EST 07/05/2024 8:22 AM EST Drake Vega MD LAB BLOOD ORDERABLES Performing Organization Address City/State/[facility] Co de Phone Number [facility] [address] [place] [address] * (ABNORMAL) Beta Hydroxybutyrate (07/05/2024 8:14 AM EST) Beta-hydroxybuty rate 2.36(H) <0.30 mmol/L LAB SEROLOGY ATELLICA METHOD 07/05/2024 9:09 AM [facility] Comment: ?> 2.0 mmol/L Ketoacidosis The BHB level may be used to demonstrate the resolution of ketoacidosis. ??Generally the patient is managed to a BHB level of < 1.0 mmol/L. Blood ENTIRE ANTECUBITAL VEIN / Unknown Venipuncture / Unknown 07/05/2024 8:14 AM EST 07/05/2024 8:22 AM EST Drake Vega MD LAB BLOOD ORDERABLES Performing Organization Address [facility] Co de Phone Number [facility] [address] [place] [address] * Non Legal Blood Alcohol (07/05/2024 8:14 AM EST) Alcohol, Medical Not detected 07/05/2024 9:15 AM EST [facility] Blood ENTIRE ANTECUBITAL VEIN / Unknown Venipuncture / Unknown 07/05/2024 8:14 AM EST 07/05/2024 8:22 AM EST Drake Vega MD LAB BLOOD ORDERABLES Performing Organization Address [facility] Phone Number [facility] [address] [place] [address] * Just In Case - Red (07/05/2024 8:14 AM EST) Pathologist [facility] Hold Specimen N/A 07/05/2024 10:00 AM EST [facility] Blood ENTIRE ANTECUBITAL VEIN / Unknown Venipuncture / Unknown 07/05/2024 8:14 AM EST 07/05/2024 8:22 AM EST Drake Vega MD LAB BLOOD ORDERABLES Performing Organization Address [facility] de Phone Number [facility] [address] [place] [id number] * EKG (07/05/2024 7:42 AM EST) Only the most recent of2 resultswithin the time period is included. Ventricular Rate 118 BPM CARDIOLOGY MUSE Atrial Rate 118 BPM CARDIOLO GY MUSE P-R Interval 148 ms CARDIOL OGY MUSE QRS Duration 78 ms CARDIOL OGY MUSE Q-T Interval 338 ms CARDIOL OGY MUSE Q2C Calculation(Be zet) 473 ms CARDIOLOGY MUSE P [place] 50 degrees CARDIOLOGY MUSE R [place] 61 degrees CARDIOLOGY MUSE T [place] 61 degrees CARDIOLOGY MUSE Diagnosis Line Sinus tachycardia Septal infarct (cited on or before 25-JUN-2024) Abnormal ECG When compared with ECG of 25-JUN-2024 15:20, No significant change was found CARDIOLOGY MUSE 07/05/2024 7:42 AM EST 07/05/2024 11:42 PM EST Francisco Espino MD EKG ORDERABLES CARDIOLOGY MUSE [address] [place] [address] * STAT FLUVID Respiratory Multiplex PCR (07/05/2024 7:25 AM EST) COVID-19 SARS-CoV2/RT PCR Negative Negative 07/05/2024 8:09 AM [facility] Influenza A by PCR Negative Negative 07/05/2024 8:09 AM [facility] Influenza B by PCR Negative Negative 07/05/2024 8:09 AM [facility] RSV by PCR Negative Negative 07/05/2024 8:09 AM [facility] Swab NASOPHARYNGEAL STRUCTURE / Unknown Non-Blood Collection / Unknown 07/05/2024 7:25 AM EST 07/05/2024 7:29 AM EST Drake Vega MD LAB MICROBIOLOGY - G ENERAL ORDERABLES Performing Organization Address City/[facility]/ZIP Co de Phone Number [facility] [address] [place] [address] * Strep pneumoniae Antigen (06/26/2024 2:09 PM EST) Strep pneumoniae Antigen Negative Negative 06/26/2024 2:34 PM EST [facility] Comment: Testing Performed by Immunochromatographic Antigen Detection Urine URINE SPECIMEN OBTAINED BY CLEAN CATCH PROCEDURE / Unknown Non-Blood Collection / Unknown 06/26/2024 2:09 PM EST 06/26/2024 2:13 PM EST Rhianna FARLEY LAB MICROBIOLOGY - G ENERAL ORDERABLES Performing Organization Address City/[facility]/ZIP Co de Phone Number [facility] [address] [place] [address] * Legionella Antigen, Urine (06/26/2024 2:09 PM EST) Legionella pneumophila serotype 1 antigen Negative Negative 06/26/2024 2:34 PM EST [facility] Comment: Testing Performed by Immunochromatographic Antigen Detection Urine URINE SPECIMEN OBTAINED BY CLEAN CATCH PROCEDURE / Unknown Non-Blood Collection / Unknown 06/26/2024 2:09 PM EST 06/26/2024 2:13 PM EST [facility] LAB URINE ORDERABLES Performing Organization Address City/[facility]/ZIP Co de Phone Number [facility] [address] [place] [address] * (ABNORMAL) Hemoglobin A1c (06/26/2024 8:13 AM EST) Hemoglobin A1C 7.8(H) <=5.7 % LAB SEROLOGY ATELLICA METHOD 06/26/2024 11:25 AM EST [facility] Est. Average Glucose 177(H) 68 - 123 mg/dL LAB SEROLOGY ATELLICA METHOD 06/26/2024 11:25 AM EST [facility] Blood ENTIRE ANTECUBITAL VEIN / Unknown Venipuncture / Unknown 06/26/2024 8:13 AM EST 06/26/2024 9:05 AM EST [facility] LAB BLOOD ORDERABLES Performing Organization Address City/[facility] Co de Phone Number [facility] [address] [place] [address] * CXR (Portable) (06/25/2024 7:32 PM EST) [...] 7:39 PM He Sapp MD [place] * Troponin, HS 2 Hour(reflex) (06/25/2024 6:22 PM EST) Troponin I HS, 2 hour <3 <=34 ng/L LAB SEROLOGY ATELLICA METHOD 06/25/2024 6:55 PM EST [facility] Blood ENTIRE ANTECUBITAL VEIN / Unknown Venipuncture / Unknown 06/25/2024 6:22 PM EST 06/25/2024 6:24 PM EST Narrative [facility] - 06/25/2024 6:55 PM EST [...] 3rd sample to be tested Female result: 34 ? Change < 7 ng/L ? Continue Evaluation/Order Male result: ? 9 - 54 ?3rd sample to be tested Female result: 34 ?Change > / = 7 ng/L ? Likely acute myocardial injury Male result: ? 9 - 54 Female result: ?> 34 ? Change < 20 % ? Abnormal troponin, likely Male result: ?> 54 ? chronic elevation ? (i.e. Dialysis, myopathy) Female result: ?> 34 ? Change > / = 20% ? Likely acute myocardial injury Male result: ?> 54 He Sapp MD LAB BLOOD ORDERABLES Performing Organization Address [facility] de Phone Number [facility] [address] [place] [address] * Troponin, HS (06/25/2024 4:22 PM EST) Troponin I HS 3 <=34 ng/L LAB SEROLOGY ATELLICA METHOD 06/25/2024 4:50 PM EST [facility] Blood ENTIRE ANTECUBITAL VEIN / Unknown Venipuncture / Unknown 06/25/2024 4:22 PM EST 06/25/2024 4:26 PM EST Narrative [facility] - 06/25/2024 4:50 PM EST Result Clinical Decision < 3 ng/L ? Negative, Rule Out ? (if > 3 hrs of chest pain ONLY, ? if < 3 hrs continue to 2 hr specimen) > / = 120 ng/L Positive, likely Acute Myocardial injury He Sapp MD LAB BLOOD ORDERABLES Performing Organization Address [facility] de Phone Number [facility] [address] [place] [address] * Blood Culture (06/25/2024 4:22 PM EST) Blood Culture No Growth at 120 Hours. 06/30/2024 5:01 PM EST [facility] Blood ENTIRE ANTECUBITAL VEIN / Unknown Venipuncture / Unknown 06/25/2024 4:22 PM EST 06/25/2024 4:26 PM EST [facility]ORY - 06/30/2024 5:01 PM EST Culture results may be compromised by the limited volume of specimen received. Pediatric bottle only received. He Sapp MD LAB MICROBIOLOGY - G ENERAL ORDERABLES Performing Organization Address [facility]/ZIP Co de Phone Number [facility] [address] [place] [address] * HCG, Qualitative, Urine (06/25/2024 4:04 PM EST) Pathologist [facility] HCG, Urine Screen Negative Negative 06/25/2024 4:24 PM [facility] Urine URINE SPECIMEN / Unknown Non-Blood Collection / Unknown 06/25/2024 4:04 PM EST 06/25/2024 4:10 PM EST Physician E/R Staff LAB URINE ORDERAB LES Performing Organization Address City/[facility]/ZIP Co de Phone Number [facility] [address] [place] [address] * Respiratory Panel 2 [employer] Film[employer] NAAT (06/25/2024 4:04 PM EST) [facility] Adenovirus Not Detected Not Detected 06/25/2024 5:05 PM [facility] Coronavirus 229E Not Detected Not Detected 06/25/2024 5:05 PM [facility] Coronavirus HKU1 Not Detected Not Detected 06/25/2024 5:05 PM [facility] Coronavirus NL63 Not Detected Not Detected 06/25/2024 5:05 PM [facility] Coronavirus OC43 Not Detected Not Detected 06/25/2024 5:05 PM [facility] Severe Acute Respiratory Syndrome Coronavirus 2 (SARS-CoV-2) Not Detected Not Detected 06/25/2024 5:05 PM [facility] Comment:Negative results do not preclude SARS-CoV-2 infection and should not be used as the sole basis for treatment or other patient management decisions. Negative results must be combined with clinical observations, patient history, and epidemiological information. The [employer] RP2.1 Respiratory panel has been granted FDA [place] marketing authorization for SARS-CoV-2 detection. Human Metapneumovirus Not Detected Not Detected 06/25/2024 5:05 PM [facility] Human Rhinovirus/Enterov irus Not Detected Not Detected 06/25/2024 5:05 PM [facility] Influenza A Not Detected Not Detected 06/25/2024 5:05 PM [facility] Influenza A/H1 06/25/2024 5:05 PM [facility] Influenza A/2009-H1 06/25/2024 5:05 PM [facility] Influenza B Not Detected Not Detected 06/25/2024 5:05 PM [facility] Parainfluenza Virus 1 Not Detected Not Detected 06/25/2024 5:05 PM [facility] Parainfluenza Virus 2 Not Detected Not Detected 06/25/2024 5:05 PM [facility] Parainfluenza Virus 3 Not Detected Not Detected 06/25/2024 5:05 PM [facility] Parainfluenza Virus 4 Not Detected Not Detected 06/25/2024 5:05 PM [facility] Respiratory Syncytial Virus Not Detected Not Detected 06/25/2024 5:05 PM [facility] Bordetella parapertussis Not Detected Not Detected 06/25/2024 5:05 PM [facility] Bordetella pertussis Not Detected Not Detected 06/25/2024 5:05 PM [facility] Chlamydia (Chlamydophila) pneumoniae Not Detected Not Detected 06/25/2024 5:05 PM [facility] Mycoplasma pneumoniae Not Detected Not Detected 06/25/2024 5:05 PM [facility] Influenza A/H3 06/25/2024 5:05 PM [facility] Nasopharyngeal Swab NASOPHARYNGEAL STRUCTURE / Unknown Swab / Unknown 06/25/2024 4:04 PM EST 06/25/2024 4:09 PM EST He Sapp MD LAB MICROBIOLOGY - G ENERAL ORDERABLES [facility] [address] [place] [address] * Hepatitis Panel, Acute (03/04/2024 12:06 PM EDT) Hepatitis B Surface Antigen Nonreactive Nonreactive LAB SEROLOGY ATELLICA METHOD 03/04/2024 2:24 PM EDT [facility] Hepatitis C Antibody Nonreactive Nonreactive LAB SEROLOGY ATELLICA METHOD 03/04/2024 2:24 PM EDT [facility] Hepatitis A IgM Nonreactive Nonreactive LAB SEROLOGY ATELLICA METHOD 03/04/2024 2:24 PM EDT [facility] Hepatitis B Core IgM Nonreactive Nonreactive LAB SEROLOGY ATELLICA METHOD 03/04/2024 2:24 PM EDT [facility] Blood ENTIRE ANTECUBITAL VEIN / Unknown Venipuncture / Unknown 03/04/2024 12:06 PM EDT 03/04/2024 12:13 PM EDT Wisam Carrasco MD LAB BLOOD ORDERABLES Performing Organization Address [facility]/State/[facility] Co de Phone Number [facility] [address] [place] [address] * Lipid Panel (Calc LDL) (01/22/2024 5:13 AM EDT) Pathologist [facility] Cholesterol 173 <=200 mg/dL LAB SEROLOGY ATELLICA METHOD 01/22/2024 11:47 AM EDT [facility] Triglycerides 92 <=150 mg/dL LAB SEROLOGY ATELLICA METHOD 01/22/2024 11:47 AM EDT [facility] Comment: Interpretation ?? mg/dL Normal ?< 150 Borderline ? 150 - 199 High ?200 - 499 Very high ? >= 500 HDL 44 41 - 60 mg/dL LAB SEROLOGY ATELLICA METHOD 01/22/2024 11:47 AM EDT [facility] LDL Calculated 111 <=130 mg/dL 01/22/2024 11:47 AM T [facility] Comment: Interpretation ?mg/dL Optimal ?< 100 Near/Above Optimal ?100 - 129 Borderline High ?130 - 159 High ? 160 - 189 Very High ?> ??= 190 Cholesterol HDL Ratio 3.9 01/22/2024 11:47 AM EDT [facility] Blood ENTIRE ANTECUBITAL VEIN / Unknown Venipuncture / Unknown 01/22/2024 5:13 AM EDT 01/22/2024 6:03 AM EDT Kali Rueda MD LAB BLOOD ORDERABLES Performing Organization Address [facility]/State/[facility] Co de Phone Number [facility] [address] [place] [address] * (ABNORMAL) Obstetric Panel with HIV (07/24/2016 11:45 AM EST) WBC COUNT 6.71 3.98 - 10.04 10*3/uL [facility] RBC COUNT 4.03 3.93 - 5.22 10*6/uL [facility] HEMOGLOBIN 11.1(L) 11.2 - 15.7 g/dL [facility] HEMATOCRIT 32.2(L) 34.1 - 44.9 % [facility] MCV 79.9(L) 80.0 - 96.0 fL [facility] MCH 27.5 25.6 - 32.2 pg [facility] MCHC 34.5 32.2 - 35.5 g/dL [facility] RDW 12.2 11.7 - 14.4 % [facility] PLATELET COUNT 348 150 - 400 10*3/uL [facility] NEUTROPHILS 56.3 % [facility] LYMPHOCYTES 36.8 % [facility] MONOCYTES 6.0 % [facility] EOSINOPHILS 0.1 % [facility] BASOPHILS 0.7 % [facility] IMMATURE GRANULOCYTES 0.10 % [facility] NEUTROPHIL NO. 3.77 1.40 - 7.70 10*3/uL [facility] LYMPHOCYTE No. 2.47 1.10 - 4.00 10*3/uL [facility] MONOCYTE No. 0.40 0.10 - 1.10 10*3/uL [facility] EOSINOPHIL No. 0.01 0.0 - 0.7 10*3/uL [facility] BASOPHIL No. 0.05 0.0 - 0.2 10*3/uL [facility] IMMATURE GRANULOCYTE No. 0.01 0.00 - 0.03 10*3/uL [facility] RUBELLA ANTIBODY IgG 119.2 IU/mL [facility] Comment: < 5.0 ? IU/ml NON-IMMUNE 5.0 - 9.9 ?? IU/ml EQUIVOCAL (GRAYZONE) > OR = 10.0 IU/ml IMMUNE RESULTS OBTAINED BY IgG ASSAY CANNOT BE CORRELATED WITH ENDPOINT TITRE ASSAY. RPR NON REACTIVE NON REACTIVE [facility] HEP B SURFACE ANTIGEN NON REACTIVE NON REACTIVE [facility] HIV,4TH GENERATION NON REACTIVE NON REACTIVE [facility] Comment: (NOTE) Non Reactive for Antibodies to HIV-1,HIV-2 and p24 antigen 07/24/2016 11:4 5 AM EST 07/24/2016 4:06 PM EST Comment:Whole blood sample ( specimen)~Serum specimen (specimen)~SERUM Jolly Short RN LABORATORY [facility] [address] [place] [address] * Pap Smear (03/25/2014 12:00 AM EDT) PAP REPORT CASE: [id number] [facility] Comment: PATIENT: ANABELLA MERCADO CERVICOVAGINAL CYTOLOGY REPORT Specimen Type: ??Liquid Based Pap Smear Specimen Source: Endocervical; Ectocervical Last Menstrual Period: 03/08/14 Clinical History: ICD 9 Codes: V76.2 Ancillary Testing:If ASC-US, reflex to HPV Imaged Slide: This specimen was successfully screened by the [employer] System ([email or web address], [place], [place]) along with an additional review by a scientific diver and/or pathologist. PRIOR PAP SMEAR DIAGNOSES: DATE PATHOLOGY# ? DIAGNOSIS PHYSICIAN 03/26/11 ??CT--[id number] ?RCC ??AMA SCRUGGS MD 07/15/09 ??CT--[id number] ?ASC-H ? Ricky HUFFMAN MD 03/26/03 ??[id number] ?ASC ??JOLLY SHORT CNM Only the 3 most recent reports are included. ??Fewer reports may be available for some patients. ??This history does not include results of any Pap smears performed at other institutions or tissue studies done. SPECIMEN ADEQUACY: Satisfactory for evaluation; transformation zone component present. DIAGNOSTIC INTERPRETATION: Negative for intraepithelial lesion or malignancy, reactive cellular changes, RCC The Pap test is a screening test to aid in the detection of cervical cancer and its precursors. ??As a screening test, both false negative and false positive results may and do occur. Final Diagnosis performed by William Britton M.D. Electronically signed 03/30/2014 1:22:04PM 03/25/2014 03/26/2014 Ricky Huffman MD LABORATORY [facility] [address] [place] [address] * Microalbumin Urine Random (EH) (02/12/2013 12:25 PM EDT) MICROALBUMIN,U RINE RANDOM 11.1 mg/L [facility] 02/12/2013 12:2 5 PM EDT 02/12/2013 4:15 PM EDT Ricky Huffman MD NON BLOOD [facility] [address] [place] [address] from Last 3 Months or Most Recently Relevant to Health Maintenance Advance Directives For more information, please contact: [phone] * Full Code (Latest Code Status on File) Date Activated Date Inactivated Comments 07/05/2024 2:26 PM * Full Code Date Activated Date Inactivated Comments 06/25/2024 10:05 PM 07/05/2024 7:14 AM * Full Code Date Activated Date Inactivated Comments 03/02/2024 11:34 PM 06/25/2024 12:46 PM * Full Code Date Activated Date Inactivated Comments 01/19/2024 5:25 PM 03/02/2024 8:23 PM * Full Code Date Activated Date Inactivated Comments 06/28/2023 4:16 PM 08/03/2023 1:01 PM Care Teams Behavioral Pediatrician Relationship Specialty Start Date End Date Celsa Preston MD [address] [place] [address] PCP - General Internal Medicine 12/10/17
--- OUTSIDE RECORDS SUMMARY | 2024-07-26 05:45 | XMS_ITS | Encounter Summary ---
Author Organization [facility]: [facility] Address [facility] [phone] [place] [address] Care Team Providers Care Waiter/Waitress Bar Name Role Phone Celsa Preston MD Primary Care Provider [phone] Encounter Details Date Type Department Care Team (Latest Contact Info) Description 09/21/2002 Orders Only Jolly Short, RN [address] [place] [id number] Social History Tobacco Use Types Packs/Day Years [...] Priority Date/Time Associated Diagnosis Comments US OBS / TRI Routine 09/21/2002 documented in this encounter Results * US OBS / TRI (09/21/2002) Anatomical Region Laterality Modality Pelvis Other 09/21/2002 Narrative 07/04/2005 5:56 PM EST ? D I A G N O S T I C ?? I M A G I N G ?? R E P O R T ?[place], [place] - ?? Pt Name: ??ANABELLA MERCADO ? Date: ? 21-Sep-2002 ? Pt.Type: O ?? Rm #: ? Exam #: ??[id number] ?? Ord.Phys: JOLLY SHORT CNM ? : ? 1985 ?? MR #: ? [id number] ?HIS #: ?? [id number] ?Pertinent Clinical Information: ?SIZE DATES, CERV LENGTH ?? Exam: US OB 2ND AND 3RD TRIMESTER ?? LMP: ??06/22/03 ?? EDC: ??03/29/03 ?? FIRST US DATE: ??09/21/02 ?? FINDINGS ?GENERAL: ??Single, male ? POSITION: ??Breech ?AMNIOTIC FLUID: ??Normal ?PLACENTA LOCATION: Anterior / GRADE: ?ACTIVITY: ??Heart rate 160 bpm, general spontaneous ? THE FOLLOWING ANATOMY WAS IMAGED AND APPEARS NORMAL: ? Stomach, 3-vessel cord, 4-chamber heart, urinary bladder, ? kidneys, spine, hands, feet, choroid plexus, ? cerebellum. ?MEASUREMENTS & CALCULATIONS ? BIPARIETAL DIAMETER: ?33 mm = 16 wks, 2 days ? HEAD CIRCUMFERENCE: ?133 mm = 16 wks, 6 days ? ABDOMINAL CIRCUMFERENCE: ?? 109 mm = 16 wks, 5 days ? FEMUR LENGTH: ? 22 mm = 16 wks, 4 days ? HC/AC: ? 1.23 ?COMPOSITE GESTATIONAL AGE: ??16 wks, 5 days ?ESTIMATED WEIGHT AT TIME OF ULTRASOUND: ??188 gms +/- 25 gms ?? TECH COMMENTS: ??LMP = 13 weeks, U/S = 16 weeks, 5 days. ??Cervix ?? measures 3.3 cm. ?(cont'd) ?Page 1 ?? Dictated: ? 21-Sep-2002 16:55 ?? Drafted: ?22-Sep-2002 13:04 ? D I A G N O S T I C ?? [facility] ?? [facility] E P O [facility] ?[place], [place] - ?? Pt Name: ??ANABELLA MERCADO ? Date: ? 21-Sep-2002 ? Pt.Type: O ?? Rm #: ? Exam #: ??[id number] ?? Ord.Phys: JOLLY SHORT CN ? : ? 1985 ?? MR #: ? [id number] ?HIS #: ?? [id number] ?Pertinent Clinical Information: ?SIZE DATES, CERV LENGTH ? (continued - US OB 2ND AND 3RD TRIMESTER) ?? IMPRESSION: 16 WEEKS, 5 DAYS INTRAUTERINE . ?signed: SUSAN KINGSLEY MD ?? EJO/jlt ? Page 2 ?? Dictated: ? 21-Sep-2002 16:55 ?? Drafted: ?22-Sep-2002 13:04 Jolly Short RN [facility] [place] documented in this encounter Visit Diagnoses Not [...] 5:23 AM EDT Influenza Rule-Out 06/28/2023 06/28/2023 3 11:25 AM EST RSV Rule-Out 06/28/2023 06/28/2023 06/28/2023 11:2 5 AM EST COVID-19 Rule-Out 06/28/2023 06/28/2023 06/28/2023 11:25 AM EST Respiratory Rule-Out 06/25/2024 06/25/2024 024 5:05 PM EST Influenza Rule-Out 07/05/2024 07/05/2024 8:09 AM EST RSV Rule-Out 07/05/2024 07/05/2024 07/05/2024 8:09 AM EST COVID-19 Rule-Out 07/05/2024 07/05/2024 07/05/2024 8:09 AM EST documented as of this encounter Care Teams Waiter/Waitress Bar Relationship Specialty Start Date End Date Celsa Preston MD [address] [place] [id number] PCP - General Internal Medicine 12/10/17 documented as of this encounter
--- OUTSIDE RECORDS SUMMARY | 2024-07-26 05:45 | XMS_ITS | Encounter Summary ---
Author Organization [facility]: [facility] Address [facility] [phone] [place] [address] Care Team Providers Care Easter Bunny Name Role Phone Celsa Preston MD Primary Care Provider [phone] Encounter Details Date Type Department Care Team (Latest Contact Info) Description 04/29/2004 Orders Only Juancho Burns MD Social History Tobacco Use Types Packs/Day [...] Name Priority Date/Time Associated Diagnosis Comments XR PANOREX (MAN ONLY) Routine 04/29/2004 CT BRAIN WO CONTRAST Routine 04/29/2004 documented in this encounter Results * XR PANOREX (04/29/2004) Anatomical Region Laterality Modality Other 04/29/2004 Narrative 03/27/2005 5:20 PM EDT ? D I A G N O S T I C ?? I M A G I N G ?? R E P O R T ?[place], [place] - ?? Pt Name: ??ANABELLA MERCADO ? Date: ? 29-Apr-2004 ? Pt.Type: I ?? Rm #: ? Exam #: ??[id number] ?? Ord.Phys: JUANCHO BURNS MD ? : ? 1985 ?? MR #: ? [id number] ?HIS #: ?? [id number] ?Pertinent Clinical Information: ?PAIN TO FACE ?? Exam: PANOREX ?? The mandible and maxilla appear unremarkable. ??There is no evidence ?? for fracture nor subluxation. ??What is seen of the maxillary sinuses ?? appears normal. ??The TMJ's are also unremarkable. ?? IMPRESSION: NORMAL PANOREX VIEW. ?signed: SUSAN KINGSLEY MD ?? EJO/trouble shooter ?? Dictated: ? 29-Apr-2004 15:00 ?? Drafted: ?02-May-2004 11:54 Juancho Burns MD SH [facility] * CT BRAIN W/O CONT (04/29/2004) Anatomical Region Laterality Modality head Other 04/29/2004 Narrative 03/25/2005 3:28 PM EDT ? D I A G N O S T I C ?? I M A G I N G ?? R E P O R T ?[place], [place] - ?? Pt Name: ??ANABELLA MERCADO ? Date: ? 29-Apr-2004 ? Pt.Type: I ?? Rm #: ? Exam #: ??[id number] ?? Ord.Phys: JUANCHO BURNS MD ? : ? 1985 ?? MR #: ? [id number] ?HIS #: ?? [id number] ?Pertinent Clinical Information: ?PAIN TO HEAD ?? Exam: CT BRAIN WO CONTRAST ?? Serial computed tomographic sections were obtained through the ?? brain in the transverse plane without contrast administration. ?? There is no shift of midline structures. ??The ventricles and ?? subarachnoid cisterns appear normal. ??Although no mass effect is ?? seen, small tumors or recent ischemic infarcts could be missed on ?? this unenhanced examination. ??There is no evidence of an acute ?? intracranial hemorrhage. ?? IMPRESSION: 1. ??NORMAL UNENHANCED BRAIN CT. ?signed: SUSAN KINGSLEY MD ?? EJO/jt ?? Dictated: ? 29-Apr-2004 11:38 ?? Drafted: ?02-May-2004 11:37 Juancho Burns MD SH CT documented in this encounter Visit Diagnoses [...] documented as of this encounter Care Teams Easter Bunny Relationship Specialty Start Date End Date Celsa Preston MD [address] [place] [address] PCP - General Internal Medicine 12/10/17 documented as of this encounter
--- OUTSIDE RECORDS SUMMARY | 2024-07-26 05:45 | XMS_ITS | Referral Summary ---
Author Organization [employer]: [facility] & [facility] Address [facility] [phone] [place] [address] Care Team Providers Care Zipper Repairer Name Role Phone Celsa Preston MD Primary Care Provider [phone] Encounters Date Type Department Care Team Description 07/05/2024 7:14 AM EST - 07/06/2024 3:30 PM EST [place] [address] Drake Vega MD Saich, Elizabeth D, MD French, Dante Prieto MD Hyperglycemia (Primary Dx); Acute vomiting; Type 1 diabetes mellitus with hyperglycemia Discharge Disposition: Routine Discharge Home 07/05/2024 Travel 06/25/2024 12:45 PM EST - 06/26/2024 5:59 PM EST Emergency [place] [address] He Sapp MD Smith, MD Kirsten Walton Basil I, MD Hypoglycemia (Primary Dx) Discharge Disposition: Routine Discharge Home 06/25/2024 Travel from Last 3 Months Allergies Active Allergy Reactions Criticality Noted Date [...] mg total) daily. 30 Tablet 1 01/26/2024 5 Active atorvastatin (LIPITOR) 40 MG Oral Tab Take 1 Tablet (40 mg total) by mouth at bedtime. 30 Tablet 1 01/25/2024 5 Active metoprolol succinate (TOPROL XL) 100 MG Oral TABLET SR 24 HR Take 1 Tablet (100 mg total) by mouth daily. Do not crush or chew 03/07/2024 Active ferrous sulfate (IRON) 325 (65 Fe) [...] doses. Take with food 8 Tablet 06/26/2024 potassium & sodium phosphates (NEUTRA-PHOS) 280-160-250 MG Oral Pack Take 1 Packet by mouth 4 times a day for 3 doses. 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 Not the [...] Desires BTL (understands limitations with delivery @ [facility] even at the time of a CD) [...] disease, unspecified 07/05/2024 Overview (04/15/2020): TRAIT only Immunizations Name Administration Dates Next Due DTP 09/01/1987,1985,1985 ,1985 MMR 09/01/1987 Polio - OPV 02/28/1989,09/01/1987,1985 ,1985 Rhogam 09/14/2016 Tb Intradermal 05/05/2001 Tdap 07/15/2015 Social History Tobacco Use Types Packs/Day Years [...] Unable or Declines to Respond No 07/03/2023 [facility] Utilities Answer Date Recorded In the [...] often do you attend chur ch or worship services? Never 06/26/2024 Do you belong to any clubs o r organizations such as temple groups, unions, fraternal or athletic groups, or [...] or slept in a detention (including now)? Patient declined 03/05/2024 Housing Stability [...] any time in the past 12 m [facility], were you homeless or living in a detention (including now)? No 06/26/2024 Sex and Gender [...] Mass Index 22.68 06/25/2024 10:17 PM EST Functional Status Functional Status Response Date of [...] concentrating, remembering, or making decisions? No 06/26/2024 Plan of Treatment Not on file Procedures Procedure Name Priority Date/Time Associated Diagnosis [...] EST LACTIC ACID WITH REFLEX STAT 07/05/19 8:14 AM EST BETA HYDROXYBUTYRATE STAT 07/05/2024 [...] 7:25 AM EST STREP PNEUMONIAE ANTIGEN Routine 024 2:09 PM EST LEGIONELLA ANTIGEN, URINE Routine [...] 12:45 PM EST EH POC WAIVED TESTING(CLIA# [id number]) POC FILLING STATION ATTENDANT GINO CAMP 07/06/2024 12:45 PM EST EH POC WAIVED TESTING(CLIA# [id number]) Blood ENTIRE ANTECUBITAL VEIN / Unknown 07/06/2024 12:44 PM EST 07/06/2024 12:44 PM EST Point Of Care Provider LAB POINT OF CARE TEST DOCKED DEVICE UNSOLICITED RESULTS EH POC WAIVED TESTING(CLIA#[id number]) [address] [place] [address] * (ABNORMAL) Basic Metabolic Panel (07/06/2024 7:02 AM EST) Only the most recent of4 resultswithin the time period is included. Sodium 137 136 - 145 mmol/L LAB SEROLOGY ATELLICA METHOD 07/06/2024 8:05 AM [facility] Potassium 3.9 3.5 - 5.1 mmol/L LAB SEROLOGY ATELLICA METHOD 07/06/2024 8:05 AM [facility] Chloride 100 98 - 107 mmol/L LAB SEROLOGY ATELLICA METHOD 07/06/2024 8:05 AM [facility] Carbon Dioxide 24 20 - 31 mmol/L LAB SEROLOGY ATELLICA METHOD 07/06/2024 8:05 AM [facility] Anion Gap 13 5 - 15 mmol/L LAB SEROLOGY ATELLICA METHOD 07/06/2024 8:05 AM [facility] Glucose 360(H) 74 - 100 mg/dL LAB SEROLOGY ATELLICA METHOD 07/06/2024 8:05 AM [facility] BUN 17 9 - 23 mg/dL LAB SEROLOGY ATELLICA METHOD 07/06/2024 8:05 AM [facility] Creatinine 1.01 0.55 - 1.02 mg/dL LAB SEROLOGY ATELLICA METHOD 07/06/2024 8:05 AM [facility] Calcium 9.4 8.3 - 10.6 mg/dL LAB SEROLOGY ATELLICA METHOD 07/06/2024 8:05 AM [facility] BUN/Creatinine Ratio 16.83 LAB SEROLOGY ATELLICA METHOD 07/06/2024 8:05 AM [facility] eGFR 73 >=60 mL/min/1.7 3m*2 LAB SEROLOGY ATELLICA METHOD 07/06/2024 8:05 AM [facility] Blood ENTIRE ANTECUBITAL VEIN / Unknown Venipuncture / Unknown 07/06/2024 7:02 AM EST 07/06/2024 7:18 AM EST Yuli Nair MD LAB BLOOD ORDERABLE S [facility] [address] [place] [address] * (ABNORMAL) Complete Blood Count with Auto Differential (07/06/2024 7:02 AM EST) Only the most recent of4 resultswithin the time period is included. WBC 8.16 4.23 - 10.80 10*3/uL 07/06/2024 7:53 AM [facility] RBC 3.86(L) 4.20 - 5.40 10*6/uL 07/06/2024 7:53 AM [facility] HGB 10.7(L) 12.0 - 16.0 g/dL 07/06/2024 7:53 AM [facility] HCT 29.9(L) 35.0 - 45.0 % 07/06/2024 7:53 AM [facility] MCV 77.5(L) 80.0 - 96.0 fL 07/06/2024 7:53 AM [facility] MCH 27.7 27.0 - 32.0 pg 07/06/2024 7:53 AM [facility] MCHC 35.8 32.0 - 37.0 g/dL 07/06/2024 7:53 AM [facility] RDW 13.1 11.5 - 14.5 % 07/06/2024 7:53 AM [facility] Platelet 495(H) 150 - 400 10*3/uL 07/06/2024 7:53 AM [facility] Comment:Repeated and verifie d MPV 10.2 9.7 - 13.2 fL 07/06/2024 7:53 AM [facility] Neutrophils % 76.0 % 07/06/2024 7:53 AM [facility] Lymphocytes % 19.0 % 07/06/2024 7:53 AM [facility] Monocytes % 3.8 % 07/06/2024 7:53 AM [facility] Eos % 0.1 % 07/06/2024 7:53 AM [facility] Basophils % 0.7 % 07/06/2024 7:53 AM [facility] Immature Granulocytes % 0.40 % 07/06/2024 7:53 AM [facility] Abs Neutrophils 6.20 1.40 - 7.70 10*3/uL 07/06/2024 7:53 AM [facility] Abs Lymphocytes 1.55 1.10 - 4.00 10*3/uL 07/06/2024 7:53 AM [facility] Abs Monocytes 0.31 0.10 - 1.10 10*3/uL 07/06/2024 7:53 AM [facility] Abs Eosinophils 0.01 0.00 - 0.70 10*3/uL 07/06/2024 7:53 AM [facility] Abs Basophils 0.06 0.00 - 0.20 10*3/uL 07/06/2024 7:53 AM [facility] Abs Immature Granulocytes 0.03 0.00 - 0.03 10*3/uL 07/06/2024 7:53 AM [facility] Blood ENTIRE ANTECUBITAL VEIN / Unknown Venipuncture / Unknown 07/06/2024 7:02 AM EST 07/06/2024 7:18 AM EST Yuli Nair MD LAB BLOOD ORDERABLE S [facility] [address] [place] [address] * (ABNORMAL) Osmolality (07/05/2024 1:34 PM EST) Osmolality 308(H) 280 - 300 mOsm/kg 07/05/2024 2:18 PM [facility] Blood ENTIRE ANTECUBITAL VEIN / Unknown Venipuncture / Unknown 07/05/2024 1:34 PM EST 07/05/2024 1:37 PM EST Drake Vega MD LAB BLOOD ORDERABLES [facility] [address] [place] [address] * (ABNORMAL) POC EPOC BMP w/HH (07/05/2024 1:12 PM EST) Sodium POC 140 136 - 145 mmol/L 07/05/2024 1:15 PM EST EH POC TESTING(CLIA #[id number]) Potassium POC 4.6 3.5 - 5.1 mmol/L 07/05/2024 1:15 PM EST EH POC TESTING(CLIA #[id number]) Chloride POC 104 96 - 111 mmol/L 07/05/2024 1:15 PM EST EH POC TESTING(CLIA #[id number]) Ionized Calcium POC 5.2 3.7 - 5.9 mg/dL 07/05/2024 1:15 PM EST EH POC TESTING(CLIA #[id number]) Glucose POC 354(H) 74 - 100 mg/dL 07/05/2024 1:15 PM EST EH POC TESTING(CLIA #[id number]) BUN POC 24(H) 9 - 23 mg/dL 07/05/2024 1:15 PM EST EH POC TESTING(CLIA #[id number]) Creatinine POC 1.02(H) 0.50 - 0.80 mg/dL 07/05/2024 1:15 PM EST EH POC TESTING(CLIA #[id number]) TCO2 POC 27.7 20 - 31 mmol/L 07/05/2024 1:15 PM EST EH POC TESTING(CLIA #[id number]) HGB POC 11.8(L) 12 - 16 g/dL 07/05/2024 1:15 PM EST EH POC TESTING(CLIA #[id number]) HCT POC 35 35 - 45 % 07/05/2024 1:15 PM EST EH POC TESTING(CLIA #[id number]) POC FILLING STATION ATTENDANT Yamini DUFFY 07/05 1:15 PM EST EH POC TESTING(CLIA #[id number]) Blood ENTIRE ANTECUBITAL VEIN / Unknown 07/05/2024 1:12 PM EST 07/05/2024 1:15 PM EST Point Of Care Provider LAB POINT OF CARE TEST DOCKED DEVICE UNSOLICITED RESULTS Performing Organization Address [facility] de Phone Number EH POC TESTING(CLIA#[id number]) [address] [place] [address] * Lactic Acid (07/05/2024 11:17 AM EST) Pathologist [facility] Lactic Acid 1.6 0.5 - 2.0 mmol/L LAB SEROLOGY ATELLICA METHOD 07/05/2024 11:43 AM EST [facility] Blood ENTIRE ANTECUBITAL VEIN / Unknown Venipuncture / Unknown 07/05/2024 11:17 AM EST 07/05/2024 11:19 AM EST Drake Vega MD LAB BLOOD ORDERABLES Performing Organization Address [facility] Co de Phone Number [facility] [address] [place] [phone] * POC Urine (07/05/2024 10:39 AM EST) Pathologist [facility] , Urine POC Negative Negative EH POC WAIVED TESTING(CLIA #[id number]) Internal Q.C. Pass EH POC WAIVED TESTING(CLIA #[id number]) Test Lot # and Exp Date [id number] 2024-12-16 Lot # /Exp Date EH POC WAIVED TESTING(CLIA #[id number]) Urine URINE SPECIMEN / Unknown 07/05/2024 10:39 AM EST Drake Vega MD POINT OF CARE TEST E NTER/EDIT ORDERABLES Performing Organization Address [facility]/ZIP Co de Phone Number POC WAIVED TESTING(CLIA#[id number]) [address] [place] [address] * (ABNORMAL) Urinalysis, Microscopy and Culture if Indicated (07/05/2024 10:36 AM EST) Only the most recent of3 resultswithin the time period is included. Color, Urine Colorless Colorless, Yellow, Straw, Dolly, Light Yellow, Dark-Yellow 07/05/2024 10:51 AM [facility] Clarity, Urine Clear Clear 07/05/2024 10:51 AM [facility] Glucose, Urine >1000(A) Normal mg/dL 07/05/2024 10:51 AM [facility] Bilirubin, Urine Negative Negative mg/dL 07/05/2024 10:51 AM [facility] Ketones, Urine 10(A) Negative mg/dL 07/05/2024 10:51 AM [facility] Specific [place], Urine 1.012(L) 1.015 - 1.025 07/05/2024 10:51 AM [facility] Blood, Urine Negative Negative mg/dL 07/05/2024 10:51 AM [facility] pH, Urine 6.5 5.0 - 9.0 07/05/2024 10:51 AM [facility] Protein, Urine 100(A) Negative to 10 mg/dL 07/05/2024 10:51 AM [facility] Urobilinogen, Urine Normal Normal mg/dL 07/05/2024 10:51 AM [facility] Nitrite, Urine Negative Negative 07/05/2024 10:51 AM [facility] Leukocytes, Urine Negative Negative WBC/uL 07/05/2024 10:51 AM [facility] Bacteria, Urine 1+(A) None Seen /HPF 07/05/2024 10:51 AM [facility] Mucus, Urine 1+(A) None Seen /LPF 07/05/2024 10:51 AM [facility] WBC, Urine 1 <=3 /HPF 07/05/2024 10:51 AM [facility] RBC, Urine 4(H) <=2 /HPF 07/05/2024 10:51 AM [facility] Squamous Epithelial, Urine 15 <=20 /LPF 07/05/2024 10:51 AM [facility] Hyaline Casts, Urine 3(H) <=1 /LPF 07/05/2024 10:51 AM [facility] Urine URINE SPECIMEN OBTAINED BY CLEAN CATCH PROCEDURE / Unknown Non-Blood Collection / Unknown 07/05/2024 10:36 AM EST 07/05/2024 10:42 AM EST Physician E/R Staff LAB URINE ORDERAB LES [facility] [address] [place] [address] * (ABNORMAL) Urine Tox Screen (07/05/2024 10:36 AM EST) Pathologist [facility] Amphetamines, Urine Not Detected Not Detected LAB SEROLOGY ATELLICA METHOD 07/05/2024 11:11 AM [facility] Barbiturates, Urine Not Detected Not Detected LAB SEROLOGY ATELLICA METHOD 07/05/2024 11:11 AM [facility] Benzodiazepin es, Urine Not Detected Not Detected LAB SEROLOGY ATELLICA METHOD 07/05/2024 11:11 AM [facility] Cannabinoids, Urine Detected(A) Not Detected LAB SEROLOGY ATELLICA METHOD 07/05/2024 11:11 AM [facility] Cocaine, Urine Not Detected Not Detected LAB SEROLOGY ATELLICA METHOD 07/05/2024 11:11 AM [facility] Methadone, Urine Not Detected Not Detected LAB SEROLOGY ATELLICA METHOD 07/05/2024 11:11 AM [facility] Opiates, Urine Not Detected Not Detected LAB SEROLOGY ATELLICA METHOD 07/05/2024 11:11 AM [facility] Phencyclidine s, Urine Not Detected Not Detected LAB SEROLOGY ATELLICA METHOD 07/05/2024 11:11 AM [facility] Buprenorphine , Urine Not Detected Not Detected LAB SEROLOGY ATELLICA METHOD 07/05/2024 11:11 AM [facility] Alcohol, Urine Not Detected Not Detected LAB SEROLOGY ATELLICA METHOD 07/05/2024 11:11 AM [facility] Fentanyl, Urine Not Detected Not Detected LAB SEROLOGY ATELLICA METHOD 07/05/2024 11:11 AM [facility] Urine URINE SPECIMEN / Unknown Non-Blood Collection / Unknown 07/05/2024 10:36 AM EST 07/05/2024 10:40 AM [facility] - 07/05/2024 11:11 AM EST Urine Drug Screen testing provides a preliminary [...] MD LAB URINE ORDERABLES Performing Organization Address [facility]/State/[facility] Co de Phone Number [facility] [address] [place] [address] * Urine Culture (07/05/2024 10:36 AM EST) Only the most recent of2 resultswithin the time period is included. Urine Culture No Growth. 07/07/2024 7:32 AM EST [facility] Urine URINE SPECIMEN OBTAINED BY CLEAN CATCH PROCEDURE / Unknown Non-Blood Collection / Unknown 07/05/2024 10:36 AM EST 07/05/2024 10:50 AM EST Physician E/R Staff LAB URINE ORDERAB LES [facility] [address] [place] [address] * CT Brain WO Contrast (07/05/2024 8:20 [...] 8:28 AM Drake Vega MD CT * (ABNORMAL) Lactic Acid with Reflex (07/05/2024 8:14 AM EST) Only the most recent of2 resultswithin the time period is included. Lactic Acid 2.6(H) 0.5 - 2.0 mmol/L LAB SEROLOGY ATELLICA METHOD 07/05/2024 8:56 AM EST [facility] Blood ENTIRE ANTECUBITAL VEIN / Unknown Venipuncture / Unknown 07/05/2024 8:14 AM EST 07/05/2024 8:22 AM EST Drake Vega MD LAB BLOOD ORDERABLES [facility] [address] [place] [address] * Venous Blood Gas (07/05/2024 8:14 AM EST) Only the most recent of2 resultswithin the time period is included. Temperature, VBG 37.0 C 07/05/2024 8:24 AM [facility] pH (T), VBG 7.350 7.220 - 7.460 07/05/2024 8:24 AM [facility] pCO2 (T), VBG 44.0 29.0 - 58.0 mmHG 07/05/2024 8:24 AM [facility] pO2 (T), VBG 38.0 27.0 - 60.0 mmHG 07/05/2024 8:24 AM EST [facility] tHb, VBG 12.0 12.0 - 18.0 g/dL 07/05/2024 8:24 AM [facility] O2 Hb, VBG 65.4 60.0 - 90.0 % 07/05/2024 8:24 AM [facility] Met Hb, VBG 0.0 0.0 - 2.0 % 07/05/2024 8:24 AM [facility] Hct, VBG 36.0 % 07/05/2024 8:24 AM [facility] BASE, VBG -1.5 -2.5 - 2.5 mmol/L 07/05/2024 8:24 AM [facility] cHCO3- (P,st), VBG 24.3 19.0 - 25.0 mmol/L 07/05/2024 8:24 AM [facility] sO2, VBG 67.6 60.0 - 90.0 % 07/05/2024 8:24 AM [facility] Blood ENTIRE ANTECUBITAL VEIN / Unknown Venipuncture / Unknown 07/05/2024 8:14 AM EST 07/05/2024 8:22 AM EST Drake Vega MD LAB BLOOD ORDERABLES [facility] [address] [place] [address] * Phosphorus (07/05/2024 8:14 AM EST) Only the most recent of2 resultswithin the time period is included. Phosphorus 4.8 2.4 - 5.1 mg/dL LAB SEROLOGY ATELLICA METHOD 07/05/2024 9:09 AM [facility] Blood ENTIRE ANTECUBITAL VEIN / Unknown Venipuncture / Unknown 07/05/2024 8:14 AM EST 07/05/2024 8:22 AM EST Drake Vega MD LAB BLOOD ORDERABLES Performing Organization Address City/[facility]/ZIP Co de Phone Number [facility] [address] [place] [phone] * Magnesium (07/05/2024 8:14 AM EST) Only the most recent of2 resultswithin the time period is included. Magnesium 1.9 1.6 - 2.6 mg/dL LAB SEROLOGY ATELLICA METHOD 07/05/2024 9:09 AM [facility] Blood ENTIRE ANTECUBITAL VEIN / Unknown Venipuncture / Unknown 07/05/2024 8:14 AM EST 07/05/2024 8:22 AM EST Drake Vega MD LAB BLOOD ORDERABLES Performing Organization Address City/[facility]/ZIP Co de Phone Number [facility] [address] [place] [address] * (ABNORMAL) Lipase (07/05/2024 8:14 AM EST) Pathologist [facility] Lipase 96(H) 12 - 53 U/L LAB SEROLOGY ATELLICA METHOD 07/05/2024 9:09 AM [facility] Blood ENTIRE ANTECUBITAL VEIN / Unknown Venipuncture / Unknown 07/05/2024 8:14 AM EST 07/05/2024 8:22 AM EST Drake Vega MD LAB BLOOD ORDERABLES Performing Organization Address City/[facility] Co de Phone Number [facility] [address] [place] [address] * (ABNORMAL) Comprehensive Metabolic Panel (07/05/2024 8:14 AM EST) Only the most recent of2 resultswithin the time period is included. Pathologist [facility] Sodium 137 136 - 145 mmol/L LAB SEROLOGY ATELLICA METHOD 07/05/2024 9:16 AM [facility] Potassium 4.6 3.5 - 5.1 mmol/L LAB SEROLOGY ATELLICA METHOD 07/05/2024 9:16 AM [facility] Chloride 99 98 - 107 mmol/L LAB SEROLOGY ATELLICA METHOD 07/05/2024 9:16 AM [facility] Carbon Dioxide 23 20 - 31 mmol/L LAB SEROLOGY ATELLICA METHOD 07/05/2024 9:16 AM [facility] Anion Gap 15 5 - 15 mmol/L LAB SEROLOGY ATELLICA METHOD 07/05/2024 9:16 AM [facility] Glucose 294(H) 74 - 100 mg/dL LAB SEROLOGY ATELLICA METHOD 07/05/2024 9:16 AM [facility] BUN 26(H) 9 - 23 mg/dL LAB SEROLOGY ATELLICA METHOD 07/05/2024 9:16 AM [facility] Creatinine 1.09(H) 0.55 - 1.02 mg/dL LAB SEROLOGY ATELLICA METHOD 07/05/2024 9:16 AM [facility] BUN/Creatinine Ratio 23.85 LAB SEROLOGY ATELLICA METHOD 07/05/2024 9:16 AM [facility] Calcium 10.6 8.3 - 10.6 mg/dL LAB SEROLOGY ATELLICA METHOD 07/05/2024 9:16 AM [facility] Protein, Total 8.9(H) 5.7 - 8.2 g/dL LAB SEROLOGY ATELLICA METHOD 07/05/2024 9:16 AM [facility] Comment:Repeated and Verifie d. Albumin 5.1(H) 3.2 - 4.8 g/dL LAB SEROLOGY ATELLICA METHOD 07/05/2024 9:16 AM [facility] AST 66(H) <=34 U/L LAB SEROLOGY ATELLICA METHOD 07/05/2024 9:16 AM [facility] ALT 89(H) 10 - 49 U/L LAB SEROLOGY ATELLICA METHOD 07/05/2024 9:16 AM [facility] ALK Phos 152(H) 46 - 116 U/L LAB SEROLOGY ATELLICA METHOD 07/05/2024 9:16 AM [facility] Bilirubin, Total 0.4 0.3 - 1.2 mg/dL LAB SEROLOGY ATELLICA METHOD 07/05/2024 9:16 AM [facility] Globulin 3.8 g/dL 07/05/2024 9:16 AM [facility] Albumin Globulin Ratio 1.34 07/05/2024 9:16 AM [facility] eGFR 66 >=60 mL/min/1. 73m*2 LAB SEROLOGY ATELLICA METHOD 07/05/2024 9:16 AM [facility] Blood ENTIRE ANTECUBITAL VEIN / Unknown Venipuncture / Unknown 07/05/2024 8:14 AM EST 07/05/2024 8:22 AM EST Drake Vega MD LAB BLOOD ORDERABLES Performing Organization Address City/[facility]/ZIP Co de Phone Number [facility] [address] [place] [address] * (ABNORMAL) Beta Hydroxybutyrate (07/05/2024 8:14 AM EST) Beta-hydroxybuty rate 2.36(H) <0.30 mmol/L LAB SEROLOGY ATELLICA METHOD 07/05/2024 9:09 AM EST [facility] Comment: ?> 2.0 mmol/L Ketoacidosis The BHB level may be used to demonstrate the resolution of ketoacidosis. ??Generally the patient is managed to a BHB level of < 1.0 mmol/L. Blood ENTIRE ANTECUBITAL VEIN / Unknown Venipuncture / Unknown 07/05/2024 8:14 AM EST 07/05/2024 8:22 AM EST Drake Vega MD LAB BLOOD ORDERABLES Performing Organization Address City/[facility]/ZIP Co de Phone Number [facility] [address] [place] [address] * Non Legal Blood Alcohol (07/05/2024 8:14 AM EST) Pathologist [facility] Alcohol, Medical Not detected 07/05/2024 9:15 AM EST [facility] Blood ENTIRE ANTECUBITAL VEIN / Unknown Venipuncture / Unknown 07/05/2024 8:14 AM EST 07/05/2024 8:22 AM EST Drake Vega MD LAB BLOOD ORDERABLES Performing Organization Address City/[facility] Co de Phone Number [facility] [address] [place] [address] * Just In Case - Red (07/05/2024 8:14 AM EST) Hold Specimen N/A 07/05/2024 10:00 AM EST [facility] Blood ENTIRE ANTECUBITAL VEIN / Unknown Venipuncture / Unknown 07/05/2024 8:14 AM EST 07/05/2024 8:22 AM EST Drake Vega MD LAB BLOOD ORDERABLES Performing Organization Address City/[facility] Co de Phone Number [facility] [address] [place] [address] * EKG (07/05/2024 7:42 AM EST) Only the most recent of2 resultswithin the time period is included. Ventricular Rate 118 BPM CARDIOLOGY MUSE Atrial Rate 118 BPM CARDIOLO GY MUSE P-R Interval 148 ms CARDIOL OGY MUSE QRS Duration 78 ms CARDIOL OGY MUSE Q-T Interval 338 ms CARDIOL OGY MUSE Q2C Calculation(Be zet) 473 ms CARDIOLOGY MUSE P [place] 50 degrees CARDIOLOGY MUSE R [place] 61 degrees CARDIOLOGY MUSE T [place] 61 degrees CARDIOLOGY MUSE Diagnosis Line Sinus tachycardia Septal infarct (cited on or before 25-JUN-2024) Abnormal ECG When compared with ECG of 25-JUN-2024 15:20, No significant change was found CARDIOLOGY MUSE 07/05/2024 7:42 AM EST 07/05/2024 11:42 PM EST Francisco Espino MD EKG ORDERABLES Performing Organization Address [facility]/ZIP Co de Phone Number CARDIOLOGY MUSE [address] [place] [address] * STAT FLUVID Respiratory Multiplex PCR (07/05/2024 7:25 AM EST) COVID-19 SARS-CoV2/RT PCR Negative Negative 07/05/2024 8:09 AM [facility] Influenza A by PCR Negative Negative 07/05/2024 8:09 AM EST [facility] Influenza B by PCR Negative Negative 07/05/2024 8:09 AM EST [facility] RSV by PCR Negative Negative 07/05/2024 8:09 AM EST [facility] Swab NASOPHARYNGEAL STRUCTURE / Unknown Non-Blood Collection / Unknown 07/05/2024 7:25 AM EST 07/05/2024 7:29 AM EST Drake Vega MD LAB MICROBIOLOGY - G ENERAL ORDERABLES Performing Organization Address City/[facility]/ZIP Co de Phone Number [facility] [address] [place] [address] * Strep pneumoniae Antigen (06/26/2024 2:09 PM EST) Strep pneumoniae Antigen Negative Negative 06/26/2024 2:34 PM EST [facility] Comment: Testing Performed by Immunochromatographic Antigen Detection Urine URINE SPECIMEN OBTAINED BY CLEAN CATCH PROCEDURE / Unknown Non-Blood Collection / Unknown 06/26/2024 2:09 PM EST 06/26/2024 2:13 PM EST Rhianna FARLEY LAB MICROBIOLOGY - G ENERAL ORDERABLES Performing Organization Address City/[facility]/ZIP Co de Phone Number [facility] [address] [place] [address] * Legionella Antigen, Urine (06/26/2024 2:09 PM EST) Legionella pneumophila serotype 1 antigen Negative Negative 06/26/2024 2:34 PM EST [facility] Comment: Testing Performed by Immunochromatographic Antigen Detection Urine URINE SPECIMEN OBTAINED BY CLEAN CATCH PROCEDURE / Unknown Non-Blood Collection / Unknown 06/26/2024 2:09 PM EST 06/26/2024 2:13 PM EST Rhianna Vergaraab PAC LAB URINE ORDERABLES Performing Organization Address City/[facility]/ZIP Co de Phone Number [facility] [address] [place] [address] * (ABNORMAL) Hemoglobin A1c (06/26/2024 8:13 AM EST) Hemoglobin A1C 7.8(H) <=5.7 % LAB SEROLOGY ATELLICA METHOD 06/26/2024 11:25 AM EST [facility] Est. Average Glucose 177(H) 68 - 123 mg/dL LAB SEROLOGY ATELLICA METHOD 06/26/2024 11:25 AM EST [facility] Blood ENTIRE ANTECUBITAL VEIN / Unknown Venipuncture / Unknown 06/26/2024 8:13 AM EST 06/26/2024 9:05 AM EST Rhianna Shanks Aron [facility] LAB BLOOD ORDERABLES [facility] [address] [place] [address] * CXR (Portable) (06/25/2024 7:32 PM EST) [...] SEROLOGY ATELLICA METHOD 06/25/2024 6:55 PM EST [facility] Blood ENTIRE ANTECUBITAL VEIN / Unknown Venipuncture / Unknown 06/25/2024 6:22 PM EST 06/25/2024 6:24 PM EST Narrative [facility] - 06/25/2024 6:55 PM EST Initial [...] 3rd sample to be tested Female result: 9 ? Change < 7 ng/L ? Continue [...] MD LAB BLOOD ORDERABLES Performing Organization Address City/State/[facility] Co de Phone Number [facility] [address] [place] [id number] * Troponin, HS (06/25/2024 4:22 PM EST) Troponin I HS 3 <=34 ng/L LAB SEROLOGY ATELLICA METHOD 06/25/2024 4:50 PM EST [facility] Blood ENTIRE ANTECUBITAL VEIN / Unknown Venipuncture / Unknown 06/25/2024 4:22 PM EST 06/25/2024 4:26 PM EST Narrative [facility] - 06/25/2024 4:50 PM EST Result Clinical Decision < 3 ng/L ? Negative, Rule Out ? (if > 3 hrs of chest pain ONLY, ? if < 3 hrs continue to 2 hr specimen) > / = 120 ng/L Positive, likely Acute Myocardial injury He Sapp MD LAB BLOOD ORDERABLES Performing Organization Address [facility] de Phone Number [facility] [address] [place] [address] * Blood Culture (06/25/2024 4:22 PM EST) Pathologist [facility] Blood Culture No Growth at 120 Hours. 06/30/2024 5:01 PM EST [facility] Blood ENTIRE ANTECUBITAL VEIN / Unknown Venipuncture / Unknown 06/25/2024 4:22 PM EST 06/25/2024 4:26 PM EST Narrative [facility] - 06/30/2024 5:01 PM EST Culture results may be compromised by the limited volume of specimen received. Pediatric bottle only received. He Sapp MD LAB MICROBIOLOGY - G ENERAL ORDERABLES Performing Organization Address [facility] de Phone Number [facility] [address] [place] [address] * HCG, Qualitative, Urine (06/25/2024 4:04 PM EST) Pathologist [facility] HCG, Urine Screen Negative Negative 06/25/2024 4:24 PM EST [facility] Urine URINE SPECIMEN / Unknown Non-Blood Collection / Unknown 06/25/2024 4:04 PM EST 06/25/2024 4:10 PM EST Physician E/R Staff LAB URINE ORDERAB LES Performing Organization Address [facility] de Phone Number [facility] [address] [place] [address] * Respiratory Panel 2 BioFire FilmArray NAAT (06/25/2024 4:04 PM EST) Adenovirus Not Detected Not Detected 06/25/2024 5:05 PM [facility] Coronavirus 229E Not Detected Not Detected 06/25/2024 5:05 PM [facility] Coronavirus HKU1 Not Detected Not Detected 06/25/2024 5:05 PM [facility] Coronavirus NL63 Not Detected Not Detected 06/25/2024 5:05 PM [facility] Coronavirus OC43 Not Detected Not Detected 06/25/2024 5:05 PM [facility] Severe Acute Respiratory Syndrome Coronavirus 2 (SARS-CoV-2) Not Detected Not Detected 06/25/2024 5:05 PM [facility] Comment:Negative results do not preclude SARS-CoV-2 infection and should not be used as the sole basis for treatment or other patient management decisions. Negative results must be combined with clinical observations, patient history, and epidemiological information. The [employer] RP2.1 Respiratory panel has been granted FDA [place] marketing authorization for SARS-CoV-2 detection. Human Metapneumovirus Not Detected Not Detected 06/25/2024 5:05 PM [facility] Human Rhinovirus/Enterov irus Not Detected Not Detected 06/25/2024 5:05 PM [facility] Influenza A Not Detected Not Detected 06/25/2024 5:05 PM [facility] Influenza A/H1 06/25/2024 5:05 PM [facility] Influenza A/2009-H1 06/25/2024 5:05 PM [facility] Influenza B Not Detected Not Detected 06/25/2024 5:05 PM [facility] Parainfluenza Virus 1 Not Detected Not Detected 06/25/2024 5:05 PM [facility] Parainfluenza Virus 2 Not Detected Not Detected 06/25/2024 5:05 PM [facility] Parainfluenza Virus 3 Not Detected Not Detected 06/25/2024 5:05 PM [facility] Parainfluenza Virus 4 Not Detected Not Detected 06/25/2024 5:05 PM [facility] Respiratory Syncytial Virus Not Detected Not Detected 06/25/2024 5:05 PM [facility] Bordetella parapertussis Not Detected Not Detected 06/25/2024 5:05 PM [facility] Bordetella pertussis Not Detected Not Detected 06/25/2024 5:05 PM [facility] Chlamydia (Chlamydophila) pneumoniae Not Detected Not Detected 06/25/2024 5:05 PM [facility] Mycoplasma pneumoniae Not Detected Not Detected 06/25/2024 5:05 PM [facility] Influenza A/H3 06/25/2024 5:05 PM [facility] Nasopharyngeal Swab NASOPHARYNGEAL STRUCTURE / Unknown Swab / Unknown 06/25/2024 4:04 PM EST 06/25/2024 4:09 PM EST He Sapp MD LAB MICROBIOLOGY - G ENERAL ORDERABLES Performing Organization Address City/[facility]/ZIP Co de Phone Number [facility] [address] [place] [address] * Hepatitis Panel, Acute (03/04/2024 12:06 PM EDT) Hepatitis B Surface Antigen Nonreactive Nonreactive LAB SEROLOGY ATELLICA METHOD 03/04/2024 2:24 PM EDT [facility] Hepatitis C Antibody Nonreactive Nonreactive LAB SEROLOGY ATELLICA METHOD 03/04/2024 2:24 PM EDT [facility] Hepatitis A IgM Nonreactive Nonreactive LAB SEROLOGY ATELLICA METHOD 03/04/2024 2:24 PM EDT [facility] Hepatitis B Core IgM Nonreactive Nonreactive LAB SEROLOGY ATELLICA METHOD 03/04/2024 2:24 PM EDT [facility] Blood ENTIRE ANTECUBITAL VEIN / Unknown Venipuncture / Unknown 03/04/2024 12:06 PM EDT 03/04/2024 12:13 PM EDT Wisam Carrasco MD LAB BLOOD ORDERABLES Performing Organization Address [facility]/ZIP Co de Phone Number [facility] [address] [place] [address] * Lipid Panel (Calc LDL) (01/22/2024 5:13 AM EDT) Cholesterol 173 <=200 mg/dL [facility] 01/22/2024 11:47 [facility] Triglycerides 92 <=150 mg/dL [facility] METHOD 01/22/2024 11:47 [facility] Comment: Interpretation ?? mg/dL Normal ?< 150 Borderline ? 150 - 199 High ?200 - 499 Very high ? >= 500 HDL 44 41 - 60 mg/dL LAB SEROLOGY [facility] METHOD 01/22/2024 11:47 [facility] LDL Calculated 111 <=130 mg/dL 01/22/2024 11:47 [facility] Comment: Interpretation ?mg/dL Optimal ?< 100 Near/Above Optimal ?100 - 129 Borderline High ?130 - 159 High ? 160 - 189 Very High ?> ??= 190 Cholesterol HDL Ratio 3.9 01/22/2024 11:47 [facility] Blood ENTIRE ANTECUBITAL VEIN / Unknown Venipuncture / Unknown 01/22/2024 5:[address] [facility] 01/22/2024 6:03 AM EDT Kali Rueda MD LAB BLOOD ORDERABLES [facility] [address] [place] [address] * (ABNORMAL) Obstetric Panel with HIV (07/24/2016 11:45 AM EST) WBC COUNT 6.71 3.98 - 10.04 10*3/uL [facility] RBC COUNT 4.03 3.93 - 5.22 10*6/uL [facility] HEMOGLOBIN 11.1(L) 11.2 - 15.7 g/dL [facility] HEMATOCRIT 32.2(L) 34.1 - 44.9 % [facility] MCV 79.9(L) 80.0 - 96.0 fL [facility] MCH 27.5 25.6 - 32.2 pg [facility] MCHC 34.5 32.2 - 35.5 g/dL [facility] RDW 12.2 11.7 - 14.4 % [facility] PLATELET COUNT 348 150 - 400 10*3/uL [facility] NEUTROPHILS 56.3 % [facility] LYMPHOCYTES 36.8 % [facility] MONOCYTES 6.0 % [facility] EOSINOPHILS 0.1 % [facility] BASOPHILS 0.7 % [facility] IMMATURE GRANULOCYTES 0.10 % [facility] NEUTROPHIL NO. 3.77 1.40 - 7.70 10*3/uL [facility] LYMPHOCYTE No. 2.47 1.10 - 4.00 10*3/uL [facility] MONOCYTE No. 0.40 0.10 - 1.10 10*3/uL [facility] EOSINOPHIL No. 0.01 0.0 - 0.7 10*3/uL [facility] BASOPHIL No. 0.05 0.0 - 0.2 10*3/uL [facility] IMMATURE GRANULOCYTE No. 0.01 0.00 - 0.03 10*3/uL [facility] RUBELLA ANTIBODY IgG 119.2 IU/mL [facility] Comment: < 5.0 ? IU/ml NON-IMMUNE 5.0 - 9.9 ?? IU/ml EQUIVOCAL (GRAYZONE) > OR = 10.0 IU/ml IMMUNE RESULTS OBTAINED BY IgG ASSAY CANNOT BE CORRELATED WITH ENDPOINT TITRE ASSAY. RPR NON REACTIVE NON REACTIVE [facility] HEP B SURFACE ANTIGEN NON REACTIVE NON REACTIVE [facility] HIV,4TH GENERATION NON REACTIVE NON REACTIVE [facility] Comment: (NOTE) Non Reactive for Antibodies to HIV-1,HIV-2 and p24 antigen 07/24/2016 11:4 5 AM EST 07/24/2016 4:06 PM EST Comment:Whole blood sample ( specimen)~Serum specimen (specimen)~SERUM Jolly Short RN LABORATORY [facility] [address] [place] [address] * Pap Smear (03/25/2014 12:00 AM EDT) PAP REPORT CASE: [id number] [facility] Comment: PATIENT: ANABELLA MERCADO CERVICOVAGINAL CYTOLOGY REPORT Specimen Type: ??Liquid Based Pap Smear Specimen Source: Endocervical; Ectocervical Last Menstrual Period: 03/08/14 Clinical History: ICD 9 Codes: V76.2 Ancillary Testing:If ASC-US, reflex to HPV Imaged Slide: This specimen was successfully screened by the Thin[employer] Imaging System ([employer], [place], [place]) along with an additional review by a portrait artist and/or pathologist. PRIOR PAP SMEAR DIAGNOSES: DATE PATHOLOGY# ? DIAGNOSIS PHYSICIAN 03/26/11 ??[id number] ?RCC ??AMA SCRUGGS MD 07/15/09 ??[id number] ?ASC-H ? Ricky HUFFMAN MD 03/26/03 ??[id number] ?ASC ??JOLLY SHORT CNM Only the 3 [...] 1:22:04PM 03/25/2014 03/26/2014 Ricky Huffman MD LABORATORY Performing Organization Address City/[facility] Co de Phone Number [facility] [address] [place] [address] * Microalbumin Urine Random (EH) (02/12/2013 12:25 PM EDT) MICROALBUMIN,U RINE RANDOM 11.1 mg/L [facility] 02/12/2013 12:2 5 PM EDT 02/12/2013 4:15 PM EDT Ricky Huffman MD SH NON BLOOD Performing Organization Address [facility] Co de Phone Number [facility] [address] [place] [address] from Last 3 Months or Most Recently Relevant to Health Maintenance Advance Directives For more information, please contact: [phone] * Full Code (Latest Code Status on [...] 4:16 PM 08/03/2023 1:01 PM Care Teams Zipper Repairer Relationship Specialty Start Date End Date Celsa Preston MD [address] [place] [address] (work) PCP - General Internal Medicine 12/10/17
--- OUTSIDE RECORDS SUMMARY | 2024-07-26 05:45 | XMS_ITS | Encounter Summary ---
Author Organization [facility]: [facility] Address [facility] [phone] [place] [address] Care Team Providers Care Validation Analyst Name Role Phone Celsa Preston MD Primary Care Provider [phone] Encounter Details Date Type Department Care Team (Latest Contact Info) Description 04/29/2004 Orders Only Osmany White, Aditi Faria, KASANDRA Social History Tobacco Use Types Packs/Day Years [...] Name Priority Date/Time Associated Diagnosis Comments XR FACIAL/SINUSES 1 VIEW Routine 04/29/2004 XR CHEST PA AND LATERAL Routine 04/29/2004 documented in this encounter Results * XR FACIAL/SINUSES 1 VIEW (04/29/2004) Anatomical Region Laterality Modality Other 04/29/2004 Narrative 03/25/2005 3:28 PM EDT ? D I A G N O S T I C ?? I M A G I N G ?? R E P O R T ?[place], [place] - ?? Pt Name: ??ANABELLA MERCADO ? Date: ? 29-Apr-2004 ? Pt.Type: I ?? Rm #: ? Exam #: ??[id number] ?? Ord.Phys: JR ADITI CERON DDS ?: ? 1985 ?? MR #: ? [id number] ?HIS #: ?? [id number] ?Pertinent Clinical Information: ?PAIN ?? Exam: FACIAL SINUSES 1 VIEW ?? Examination of the paranasal sinuses shows them to be clear and ?? well aerated. ??No fluid levels are seen. ??The bony lamina appear ?? intact. ??The nasal septum is midline. ?? IMPRESSION: NORMAL SINUSES. ?signed: SUSAN KINGSLEY MD ?? EJO/prl ?? Dictated: ? 29-Apr-2004 15:00 ?? Drafted: ?02-May-2004 11:56 Aditi Johnsonpalma Blackman., DDS SH GR * XR CHEST PA & LATERAL (04/29/2004) Anatomical Region Laterality Modality Lung Other 04/29/2004 Narrative 03/25/2005 3:28 PM EDT ? D I A G N O S T I C ?? I M A G I N G ?? R E P O R T ?[place], [place] - ?? Pt Name: ??ANABELLA MERCADO ? Date: ? 29-Apr-2004 ? Pt.Type: I ?? Rm #: ? Exam #: ??[id number] ?? Ord.Phys: JR ADITI CERON DDS ?: ? 1985 ?? MR #: ? [id number] ?HIS #: ?? [id number] ?Pertinent Clinical Information: ?PAIN ?? Exam: CXR CHEST PA & LAT ?? Examination of the chest shows no evidence of acute pulmonary ?? disease. ??The heart and pulmonary vasculature appear normal. ??No ?? hilar adenopathy, pneumothorax or pleural effusion is seen. ??The ?? trachea is in the midline. ?? IMPRESSION: 1) ??NORMAL CHEST. ?signed: SUSAN KINGSLEY MD ?? EJO/global logistics analyst ?? Dictated: ? 29-Apr-2004 15:00 ?? Drafted: ?02-May-2004 11:55 Aditi Ceron Jr., DDS SH GR documented in this encounter Visit [...] documented as of this encounter Care Teams Validation Analyst Relationship Specialty Start Date End Date Celsa Preston MD [address] [place] [address] PCP - General Internal Medicine 12/10/17 documented as of this encounter
[2024-07-26 05:48] LABS: Glucose, Whole Blood 117 mg/dL (60-115)
--- NOTE | 2024-07-26 05:49 | P.HPHOSP_ITS ---
History of Present Illness Date of Service: 07/26/24 Attending physician on admission: Heather Morales Chief Complaint: Loss of consciousness Lynne Mann is a 39 years old woman with past medical history significant for type 1 diabetes mellitus on insulin pump and hypertension was brought to the emergency department via EMS after she was found to be unconscious by her boyfriend no we will call the ambulance. According to notes the patient was found to be hypoglycemic (50s) and was given glucagon and D10 IV. Patient stated that she does not remember what happened. She denied not eating today or missing any meals. She denied alcohol abuse, tobacco smoking or illicit drug use. She denied any headache, sore throat, fever, chills, palpitations, dizziness, chest pain, shortness on breath, abdominal pain, nausea, vomiting or diarrhea. She denied any acute urinary symptoms. In the ED, she was found to have normal vital signs. There is no leukocytosis and platelets are normal.. Hemoglobin is 9 5 4. There are no significant electrolyte imbalances except for hyperchloremia. Anion gap is 11 BUN 23 creatinine 0.99 and CO2 26. Glucose was found to be 60. POC is 86--> 62--> 75--> 117. Transaminases slightly elevated with normal total bilirubin and alk- phos. ETOH level less than 10. According to ED provider her insulin pump was removed and treatment with D10 infusion was started. Review of Systems 2 Review of Systems: All 12 systems were reviewed and normal except as noted in HPI. [facility] Medical History (Updated 07/26/24 @ 06:08 by Heather Morales MD) Essential hypertension Type 1 diabetes mellitus Social History Smoked in Last 30 Days: No Use of substances other than those prescribed or required for medical reasons: Yes Substance Use Type: Marijuana Substance Use Frequency: Socially Advance Directives: No Advance Directives Information Provided: Yes Do you have a plan to hurt others: No Plan Meds Allergies Allergy/AdvReac Type Severity Reaction Status Date / Time ondansetron [From Zofran] AdvReac Hives Verified 07/26/24 03:31 Active Medications: Current Medications Acetaminophen (Acetaminophen 325 Mg Tablet) 975 mg PO Q6H PRN PRN Reason: Pain, Mild 1-3,fever,headache Dextrose (D10) 1,000 mls @ 100 mls/hr IVCONT .Q10H NIKI Last Admin: 07/26/24 04:34 Dose: 100 mls/hr Sodium Chloride (0.9 % Sodium Chloride Flush 3 Ml Syringe) 3 ml IVFLUSH QSHIFT [facility] Physical Exam 2 Vital Signs and Narrative: Vital Signs: Last Vital Signs Temp 98.7 F 07/26/24 04:45 Pulse 84 07/26/24 04:45 Resp 16 07/26/24 04:45 BP 110/70 07/26/24 04:45 Pulse Ox 98 07/26/24 04:45 O2 Del Method Room Air 07/26/24 04:45 BMI result Body Mass Index 22.1 Constitutional - Awake and Alert, No apparent distress Eyes - PERRLA, EOMI Cardiovascular - S1S2, RRR, No edema Respiratory - Normal lung expansion, Normal respiratory effort, No respiratory distress, CTA bilaterally Gastrointestinal - NT / ND; +BS; No rebound or guarding - No CVA tenderness Extremities - no calf tenderness bilaterally, no swelling Musculoskeletal - Normal inspection, normal ROM Skin - Warm/Dry Neurological - Alert & oriented x3, CN II-XII in tact, 5/5 strength BUE and BLE Psychological - Appropriate affect Results Labs 07/26/24 03:31 07/26/24 03:31 Labs: Laboratory Results - last 24 hr 07/26/24 07/26/24 07/26/24 03:31 03:35 04:14 MCV 82.0 MCH 27.3 MCHC 33.3 RDW 14.2 Plt Count 219 MPV 9.9 Immature Gran % (Auto) 0.3 Neut % (Auto) 62.9 Lymph % (Auto) 28.9 Douglas % (Auto) 6.2 Eos % (Auto) 1.0 Baso % (Auto) 0.7 Lymph # (Auto) 1.7 Douglas # (Auto) 0.4 Eos # (Auto) 0.1 Baso # (Auto) 0.0 Abs Immat Gran (auto) 0.02 Absolute Neuts (auto) 3.8 Absolute Nucleated RBC 0.000 Nucleated RBC % (auto) 0.0 Anion Gap 11 L Estim Creat Clear Calc 63.1 Estimated GFR > 60 POC Glucose 86 62 Random Glucose 60 Calcium 9.4 Total Bilirubin 0.2 AST 49 H ALT 50 H Alkaline Phosphatase 84 Total Protein 7.4 Albumin 3.7 Ethyl Alcohol < 10 07/26/24 07/26/24 04:44 05:44 MCV MCH MCHC RDW Plt Count MPV Immature Gran % (Auto) Neut % (Auto) Lymph % (Auto) Douglas % (Auto) Eos % (Auto) Baso % (Auto) Lymph # (Auto) Douglas # (Auto) Eos # (Auto) Baso # (Auto) Abs Immat Gran (auto) Absolute Neuts (auto) Absolute Nucleated RBC Nucleated RBC % (auto) Anion Gap Estim Creat Clear Calc Estimated GFR POC Glucose 75 117 H Random Glucose Calcium Total Bilirubin AST ALT Alkaline Phosphatase Total Protein Albumin Ethyl Alcohol Assessment and Plan (1) Hypoglycemia: Status: Acute (2) Chronic anemia: Status: Acute Plan Lynne Mann is a 39 y/o with PMHx significant for type 1 diabetes mellitus presents with: * Hypoglycemia. Observation under hospitalist service. Patient on insulin pump was removed in the emergency department. Continue D10 infusion and fed patient (she was given cranberry juice, peanut butter jelly, anival nya, honey crackles and pudding). Blood glucose checks every 2 hours, if blood glucose remained normal over the next several hours we will stopped D10 infusion, restart patient own insulin infusion and sent discharged home. * Essential hypertension. Continue lisinopril and metoprolol. * Chronic anemia. Stable. Continue iron pills. Med rec for pharmacy is still pending. Quality Stroke Does the patient have a stroke diagnosis?: No VTE Prior VTE?: No VTE Risk Level:: Medical - low VTE Device Contraindication: Treatment Not Indicated VTE Drug Contraindication: Treatment Not Indicated
--- NOTE | 2024-07-26 06:09 | PC.NURSE ---
pt po challenge, tolerated well.
[2024-07-26 07:20] LABS: Glucose, Whole Blood 299 mg/dL (60-115)
--- NOTE | 2024-07-26 08:28 | PC.NURSE ---
Assumed care of patient at 0700, BS 299, provider notified, d10 infusion stopped per order. Patient alert and oriented, ate well for breakfast
[2024-07-26 09:09] LABS: Glucose, Whole Blood 478 mg/dL (60-115)
--- NOTE | 2024-07-26 09:27 | PHA.MEDREC ---
Pharmacy Consult ? Medication Reconciliation Pharmacy has completed the medication reconciliation. Spoke to patient at bedside, named all of her medications. She did name amitriptyline despite not being filled for a while. Patient has insulin pump with Novolog, Lantus used in case of pump failure
[2024-07-26] MEDS: Insulin Lispro 100 UNIT/ML 3 ML VIAL 10 UNIT SUBCUT (09:40)
[2024-07-26 11:19] LABS: Glucose, Whole Blood 373 mg/dL (60-115)
[2024-07-26] MEDS: Aspirin Enteric Coated 81 MG TABLET.DR PO (11:27)
[2024-07-26] MEDS: Metoprolol Succinate ER 100 MG TAB.ER.24H PO (11:27)
[2024-07-26] MEDS: Insulin Lispro 100 UNIT/ML 3 ML VIAL SUBCUT ×3 (13:14→21:42)
--- NOTE | 2024-07-26 13:22 | PM.EVENT ---
Event Note Date of Service: 07/26/24 Event Note: seen and evaluated To hold on insulin pump restarting DC IV Dextrose SSI for now regular diet monitor POC discharge on SSI and Lantus when ready to follow with her diabetic team for pump care Time Spent With Patient Time: Total time managing care of this patient today ____ minutes.
[2024-07-26] MEDS: Insulin Glargine,Hum.rec.anlog 100 UNIT/ML 10 ML VIAL 10 UNIT SUBCUT (13:42)
[2024-07-26 15:15] LABS: Glucose, Whole Blood 239 mg/dL (60-115)
[2024-07-26] MEDS: 0.9 % Sodium Chloride Flush 3 ML SYRINGE IVFLUSH ×2 (17:40→21:46)
[2024-07-26 18:08] LABS: Glucose, Whole Blood 164 mg/dL (60-115)
[2024-07-26 21:04] LABS: Glucose, Whole Blood 151 mg/dL (60-115)
[2024-07-26] MEDS: Atorvastatin Calcium 40 MG TABLET PO (21:42)
[2024-07-26] MEDS: Amitriptyline HCl 25 MG TABLET PO (21:42)
[2024-07-26] MEDS: Ferrous Sulfate 324 MG TABLET.DR PO (21:42)
[2024-07-27] VITALS: BP 156/95; PULSE 95; RESP 16; TEMP 36.3; O2SAT 100
[2024-07-27 00:23] LABS: Glucose, Whole Blood 105 mg/dL (60-115)
[2024-07-27 03:40] VITALS: BP 105/60; PULSE 89; RESP 16; TEMP 36.7; O2SAT 97
[2024-07-27 03:50] LABS: Glucose, Whole Blood 248 mg/dL (60-115)
[2024-07-27 07:09] VITALS: BP 118/62; PULSE 89; RESP 12; TEMP 36.7; O2SAT 97
[2024-07-27 07:17] LABS: Glucose, Whole Blood 328 mg/dL (60-115)
[2024-07-27] MEDS: Insulin Lispro 100 UNIT/ML 3 ML VIAL SUBCUT ×2 (07:30→11:47)
[2024-07-27 08:15] LABS: Hematocrit 24.7 % (37.0-47.0); Hemoglobin 8.2 g/dl (12.0-16.0); Mean Corpuscular HGB Conc 33.2 g/dl (31.0-35.0); Mean Corpuscular Hemoglobin 26.9 pg (27.0-33.0); Mean Platelet Volume 10.8 fL (9.4-12.3); Platelet Count 217 X10*3/uL (160-400); Red Blood Count 3.05 X10*6/uL (4.20-5.50); Red Cell Distribution Width 14.2 % (11.0-16.0); White Blood Count 9.2 X10*3/uL (4.8-10.8)
[2024-07-27 08:49] LABS: Blood Urea Nitrogen 21 mg/dL (9-16); Calcium 8.5 mg/dL (8.4-10.2); Creatinine Clr Calc Pharmacy 61.8; Estimated Glomerular Filt Rate > 60; Glucose Random 325 mg/dL (60-115)
[2024-07-27] MEDS: Metoprolol Succinate ER 100 MG TAB.ER.24H PO (08:51)
[2024-07-27] MEDS: Ferrous Sulfate 324 MG TABLET.DR PO (08:51)
[2024-07-27] MEDS: lisinopriL 20 MG TABLET PO (08:51)
[2024-07-27] MEDS: Aspirin Enteric Coated 81 MG TABLET.DR PO (08:51)
[2024-07-27] MEDS: Insulin Glargine,Hum.rec.anlog 100 UNIT/ML 10 ML VIAL 15 UNIT SUBCUT (08:52)
[2024-07-27 09:00] LABS: Anion Gap 14 (12-20); Carbon Dioxide 23 mmol/L (22-29); Chloride 106 mmol/L (96-108); Sodium 138 mmol/L (135-145)
--- NOTE | 2024-07-27 09:15 | MHC.CM.PN ---
VANNA 07/27/24 DX Hypoglycemia She lives with her 2 sons. Patient is independent with all functional mobility. She is visiting from [place]. DP home self care. Patient will arrange for a ride home at discharge.
[2024-07-27 09:24] LABS: Appearance Urine Turbid; Color Urine Yellow; Glucose Urine UA 500 mg/dL (Negative); Leukocyte Esterase Urine Moderate (2+) (Negative); Nitrite Urine Negative (Negative); PH 7.5 (5.0-9.0); Specific Gravity - Urine 1.015 (1.005-1.025); UMIC TRIGGER UACC YES; Urine Blood Negative (Negative); Urine Ketones Trace mg/dL (Negative); Urine Protein 30 (1+) mg/dL (Neg-Trace)
[2024-07-27 09:27] LABS: Bacteria Urine 4+ (None Seen); Hyaline Casts Urine 0-2 /LPF (0-2); RBC Urine 0-2 /HPF (0-2); Squamous Epithelial Cell Urine 0-2 /HPF (0-2); UACC Culture Trigger YES; WBC Urine >50 /HPF (0-5)
[2024-07-27 09:35] LABS: Amphetamine Screen Urine Not Detected (Not Detect); Barbiturates, Urine Not Detected (Not Detect); Benzodiazepines Screen Urine Not Detected (Not Detect); Buprenorphine Scr Not Detected (Not Detect); Cannabinoid Screen Urine POSITIVE (Not Detect); Cocaine Screen Urine Not Detected (Not Detect); Fentanyl, urine Not Detected (Not Detect); Methadone Screen, Urine Not Detected (Not Detect); Opiate Screen Urine Not Detected (Not Detect); Oxycodone Screen Urine Not Detected (Not Detect); Phencyclidine Screen Urine Not Detected (Not Detect)
--- NOTE | 2024-07-27 10:19 | MHC.CM.PN ---
Per MD rounds, Patient is ready to discharge today. Patient discharged to Home self care. She will arrange for transportation home.
[2024-07-27 11:20] LABS: Glucose, Whole Blood 198 mg/dL (60-115)
[2024-07-27 11:42] VITALS: BP 99/64; PULSE 91; RESP 14; TEMP 36.9; O2SAT 100
--- NOTE | 2024-07-27 12:24 | PM.DS ---
DS: Providers Provider Date of Service: 07/27/24 Date of admission: 07/26/24 05:43 Date of discharge: 07/27/24 Primary care physician: Celsa Preston MD DS: Diagnosis Discharge Diagnosis (1) Hypoglycemia: Status: Acute (2) Chronic anemia: Status: Acute (3) Type 1 diabetes mellitus: Status: Acute DS: Summary Hospital Course Hospital Course: Admission note DANYEL Mann is a 39 years old woman with past medical history significant for type 1 diabetes mellitus on insulin pump and hypertension was brought to the emergency department via EMS after she was found to be unconscious by her boyfriend no we will call the ambulance. According to notes the patient was found to be hypoglycemic (50s) and was given glucagon and D10 IV. Patient stated that she does not remember what happened. She denied not eating today or missing any meals. She denied alcohol abuse, tobacco smoking or illicit drug use. She denied any headache, sore throat, fever, chills, palpitations, dizziness, chest pain, shortness on breath, abdominal pain, nausea, vomiting or diarrhea. She denied any acute urinary symptoms. In the ED, she was found to have normal vital signs. There is no leukocytosis and platelets are normal.. Hemoglobin is 9 5 4. There are no significant electrolyte imbalances except for hyperchloremia. Anion gap is 11 BUN 23 creatinine 0.99 and CO2 26. Glucose was found to be 60. POC is 86--> 62--> 75--> 117. Transaminases slightly elevated with normal total bilirubin and alk-phos. ETOH level less than 10. According to ED provider her insulin pump was removed and treatment with D10 infusion was started. Hospital course The patient was monitored off the insulin pump on IV Dextrose. no episodes of hypoglycemia while inpatient. Started regular diet and SSI. Lantus 15 units added and remained mildly hyperglycemic. She will be discharged on 16 units of Lantus and SSI lispro with a plan to hold on insulin pump until she sees her diabetic clinic for follow up and further investigation into possible insulin pump malfunction. she has chronic anemia. to follow as outpatient. no acute symptoms reported. No evidence of bleeding. Discharge plan Start Insulin sliding scale Start Insulin Lantus 16 units for now Stop using the insulin pump and follow with your diabetes clinic for further adjustments Time Attestation Discharge Coordination Time (in mins): 26 Quality: Safe Use of Opioids Does Pt have an Active Cancer Diagnosis on the Problem List?: No Quality: Stroke Does the patient have a stroke diagnosis?: No Physical Exam Vital Signs: Vital Signs: Last Vital Signs Temp 98.4 F 07/27/24 11:42 Pulse 91 07/27/24 11:42 Resp 14 07/27/24 11:42 BP 99/64 07/27/24 11:42 Pulse Ox 100 07/27/24 11:42 O2 Del Method Room Air 07/27/24 11:42 BMI result Body Mass Index 22.1 Const: Other: Constitutional : interactive, not in distress Cardiovascular : no JVP, no lower extremity edema Respiratory : bilateral chest movement, not in resp distress Gastrointestinal: soft, lax, Non tender Skin : Warm, Dry Neurological : Alert & oriented , No focal deficit DS: Data Data Completed and Pending Labs on day of discharge: Laboratory Results - last 24 hr 07/26/24 07/26/24 07/26/24 15:04 18:05 20:57 WBC RBC Hgb Hct MCV MCH MCHC RDW Plt Count MPV Absolute Nucleated RBC Nucleated RBC % (auto) Sodium Potassium Chloride Carbon Dioxide Anion Gap BUN Creatinine Estim Creat Clear Calc Estimated GFR POC Glucose 239 H 164 H 151 H Random Glucose Calcium Urine Color Urine Appearance Urine pH Ur Specific [place] Urine Protein Urine Glucose (UA) Urine Ketones Urine Blood Urine Nitrite Ur Leukocyte Esterase Urine RBC Urine WBC Ur Squamous Epith Cells Urine Bacteria Hyaline Casts Urine Opiates Screen Ur Buprenorphine Scrn Ur Oxycodone Screen Urine Methadone Screen Urine Fentanyl Screen Ur Barbiturates Screen Ur Phencyclidine Scrn Ur Amphetamines Screen U Benzodiazepines Scrn Urine Cocaine Screen U Marijuana (THC) Screen 07/27/24 07/27/24 07/27/24 00:18 03:45 07:11 WBC RBC Hgb Hct MCV MCH MCHC RDW Plt Count MPV Absolute Nucleated RBC Nucleated RBC % (auto) Sodium Potassium Chloride Carbon Dioxide Anion Gap BUN Creatinine Estim Creat Clear Calc Estimated GFR POC Glucose 105 248 H 328 H Random Glucose Calcium Urine Color Urine Appearance Urine pH Ur Specific [place] Urine Protein Urine Glucose (UA) Urine Ketones Urine Blood Urine Nitrite Ur Leukocyte Esterase Urine RBC Urine WBC Ur Squamous Epith Cells Urine Bacteria Hyaline Casts Urine Opiates Screen Ur Buprenorphine Scrn Ur Oxycodone Screen Urine Methadone Screen Urine Fentanyl Screen Ur Barbiturates Screen Ur Phencyclidine Scrn Ur Amphetamines Screen U Benzodiazepines Scrn Urine Cocaine Screen U Marijuana (THC) Screen 07/27/24 07/27/24 07/27/24 07:14 07:48 09:12 WBC 9.2 RBC 3.05 L Hgb 8.2 L Hct 24.7 L MCV 81.0 MCH 26.9 L MCHC 33.2 RDW 14.2 Plt Count 217 MPV 10.8 Absolute Nucleated RBC 0.000 Nucleated RBC % (auto) 0.0 Sodium 138 Potassium 5.0 D Chloride 106 Carbon Dioxide 23 Anion Gap 14 BUN 21 H Creatinine 1.01 Estim Creat Clear Calc 61.8 Estimated GFR > 60 POC Glucose Random Glucose 325 H Calcium 8.5 D Urine Color Yellow Urine Appearance Turbid Urine pH 7.5 Ur Specific [place] 1.015 Urine Protein 30 (1+) H Urine Glucose (UA) 500 H Urine Ketones Trace Urine Blood Negative Urine Nitrite Negative Ur Leukocyte Esterase Moderate (2+) H Urine RBC 0-2 Urine WBC >50 H Ur Squamous Epith Cells 0-2 Urine Bacteria 4+ Hyaline Casts 0-2 Urine Opiates Screen Not Detected Ur Buprenorphine Scrn Not Detected Ur Oxycodone Screen Not Detected Urine Methadone Screen Not Detected Urine Fentanyl Screen Not Detected Ur Barbiturates Screen Not Detected Ur Phencyclidine Scrn Not Detected Ur Amphetamines Screen Not Detected U Benzodiazepines Scrn Not Detected Urine Cocaine Screen Not Detected U Marijuana (THC) Screen POSITIVE H 07/27/24 11:15 WBC RBC Hgb Hct MCV MCH MCHC RDW Plt Count MPV Absolute Nucleated RBC Nucleated RBC % (auto) Sodium Potassium Chloride Carbon Dioxide Anion Gap BUN Creatinine Estim Creat Clear Calc Estimated GFR POC Glucose 198 H Random Glucose Calcium Urine Color Urine Appearance Urine pH Ur Specific [place] Urine Protein Urine Glucose (UA) Urine Ketones Urine Blood Urine Nitrite Ur Leukocyte Esterase Urine RBC Urine WBC Ur Squamous Epith Cells Urine Bacteria Hyaline Casts Urine Opiates Screen Ur Buprenorphine Scrn Ur Oxycodone Screen Urine Methadone Screen Urine Fentanyl Screen Ur Barbiturates Screen Ur Phencyclidine Scrn Ur Amphetamines Screen U Benzodiazepines Scrn Urine Cocaine Screen U Marijuana (THC) Screen Discharge Plan Discharge Anticipated Discharge Date/Time: 07/27/24 12:15 Patient Disposition: Home, Self-Care Discharge Diagnosis: Hypoglycemia malfunctioning insulin pump Referrals: Celsa Preston MD [Primary Care Provider] - 1 Week Discharge Medications: New alcohol swabs [Alcohol Pads] Pads, Medicated 1 pad topical QIDACHS Qty: 200 0RF (DME) FreeStyle Lite Strips Strip See Rx Instructions .ROUTE .MEDSUPPLY Qty: 100 0RF Rx Instructions: QID insulin lispro [Humalog KwikPen Insulin] 100 unit/mL insulin pen 1 sliding scale dose subcut USEASDIRECTD Qty: 15 0RF Rx Instructions: 150-200: 2 units 201-250: 4 units 251-300: 6 units 301-350: 8 units >350 10 units notify insulin glargine 100 unit/mL (3 mL) insulin pen 16 unit subcut QAM Qty: 15 0RF (DME) lancets Misc See Rx Instructions .ROUTE .MEDSUPPLY Qty: 100 0RF Rx Instructions: 4 times daily (DME) pen needle, diabetic [Pen Needle] 31 gauge x 5/16 needle See Rx Instructions .ROUTE .MEDSUPPLY Qty: 100 1RF Rx Instructions: As directed Continued atorvastatin 40 mg tablet 40 mg PO BEDTIME lisinopril 20 mg tablet 20 mg PO DAILY metoprolol succinate 100 mg tablet extended release 24 hr 100 mg PO DAILY aspirin 81 mg Tablet,Delayed Release (Dr/Ec) 81 mg PO DAILY amitriptyline 25 mg tablet 25 mg PO BEDTIME metoclopramide HCl 5 mg tablet 5 mg PO TID PRN (Reason: nausea/vomiting) insulin aspart U-100 100 unit/mL solution 0 - 60 unit DAILY ferrous sulfate [FeroSul] 325 mg (65 mg iron) tablet 325 mg PO BID insulin glargine [Lantus Solostar U-100 Insulin] 100 unit/mL (3 mL) insulin pen 16 unit subcut DAILY PRN (Reason: pump failure) Discharge Orders: Discharge Order (Routine); Ordered 07/27/24 Ordered By: Yvon Caceres Diet: Diabetic diet Activity on Discharge: As tolerated Stand Alone Forms: Patient Portal Discharge page Print Language: Khmer Care Plan Goals: Start Insulin sliding scale Start Insulin Lantus 16 units for now Stop using the insulin pump and follow with your diabetes clinic for further adjustments Health Concerns: Diabetes with hypoglycemia Plan of Treatment: Hold Insulin Pump Use short and long acting insulin Assessment: as above
== END 2024-07-27 12:48 | disposition home or self-care (01) ==
LOC: HO.ED 05:42 → HO.EDOVER 05:49 → HO.S3 07:42
PROVIDERS: Admitting Provider Internal Medicine; Emergency Provider Emergency Medicine; PCP Hospitalist; Visit Provider Student in an Organized Health Care Education/Training Program
DX: E10.649 Type 1 diabetes mellitus with hypoglycemia without coma (principal); T85.614A Breakdown (mechanical) of insulin pump, initial encounter; Y84.9 Medical procedure, unspecified as the cause of abnormal reaction of the patient, or of later complication, without mention of misadventure at the time of the procedure; Y92.9 Unspecified place or not applicable; I10 Essential (primary) hypertension; D64.9 Anemia, unspecified; Z79.4 Long term (current) use of insulin; Z96.41 Presence of insulin pump (external) (internal); Z79.899 Other long term (current) drug therapy
CPT/HCPCS: 36415; 80048; 80053; 80307; 81001; 82947; 85025; 85027; 87086; 87088; 87186; 93005; 96360; 96361; 99221; 99285

== ENCOUNTER → 2024-07-26 03:13 | Outpatient (BNV) | payer MEDICAID, SELFPAY | PROVIDERS: Admitting Provider Internal Medicine; Emergency Provider Emergency Medicine; Visit Provider Internal Medicine Cardiovascular Disease | DX: I45.6 Pre-excitation syndrome (principal) | CPT/HCPCS: 93010 ==

== ENCOUNTER → 2024-07-26 05:43 | Outpatient (BNV) | payer MEDICAID, SELFPAY | PROVIDERS: Admitting Provider Internal Medicine; Emergency Provider Emergency Medicine; Visit Provider Internal Medicine | DX: E16.2 Hypoglycemia, unspecified (principal); D64.9 Anemia, unspecified; E10.9 Type 1 diabetes mellitus without complications | CPT/HCPCS: 99238 ==